=== PATIENT | female | born 1960 | race Caucasian/White ===

== ENCOUNTER → 2016-06-13 | Outpatient (CLI) | payer OTHER ==
[~2016-06-13] MED LIST: /METO25TA PO; /METO5T; /PANT40TA; /PANT40TA PO; ALBU17IN INH; ALBU83IN; ALBU83IN INH; ALBUTEROL NEBS NEB; ALDA25TA2 PO; ALDA50TA2 PO; ALPH0.156 OU; ASPI325T; ASPI81TA13 PO; ASPI81TA4 PO; ASPI81TA85 PO; ATRO1SOL13; BENA25TA4 PO; BUME1TAB; BUME1TAB13 PO; CLARITIN; CLOP75TA2 PO; COLA100C PO; COLA50CA3 PO; COMB0.2S OD; COMB0.2S OS; DEMA10TA PO; DRIS50002 PO; DULC5TAB PO; DULE200A INH; ERYT5OPO OS; EUCECRE3 TOP; FERR324T2 PO; FERR325T; FERR325T16 PO; FLAG250T; FLAG500T; FLEEENE4 PR; GUAISYP4 PO; HEPA50VL SC; HYDR-4267 PO; INCR1INH INH; INSUH10VL SC; INSULADS SC; INSULANT; INSULANT SC; IRONTAB3 PO; ISOS30BRAN; K-TA10TA; KLOR10TA; LANTUS SC; LISI2.5T; LOPR100T PO; LOSA25TA8 PO; LOSA50TA20 PO; MAGN400T5 PO; MAGN500T2; MAGN500T6 PO; MAGNESIUM OXIDE; METO100T PO; METO25TA PO; MICR10CA PO; MIRA255PW PO; MOME50SP; NEUR300C; NOVOLOG SC; OCEA0.65; PERC5TAB6 PO; PERCOCET PO; PLAV75TA2; PLAV75TA38 PO; POTA20EL PO; PRAV40TA; PREDOPD OU; PROT1TAB2 PO; RANI1TAB6 PO; SENN15UDC PO; SIMV20TA2 PO; SIMV40TA2 PO; SING10TA32 PO; SINGULAIR PO; SPIR1CAP INH; SPIR25TA2 PO; SYMB80INH INH; TESS100C PO; THERGRAN; THIA100T; TIMO5OPD OU; TIOT18INH INH; TORS10TA3 PO; TOUJ1.2I SC; TRAM50TA2; TRAM50TA2 PO; TYLE325T5 PO; TYLE650T30 PO; ULOR80TA PO; ULTR50TA PO; VENTAER IN; VICO5TAB; VITAMIN D50000 UNT; XYZA5TAB2 PO; [UNRECOGNIZED DRUG - CODE] OD; [UNRECOGNIZED DRUG - CODE] TOP; zyzal PO
--- NOTE | 2016-06-14 01:52 | REP ---
Clinical: Bronchitis. Technique: AP and lateral views. Comparison: 02/13/2016. Findings: Cardiomegaly is appreciated along with evidence for prior sternotomy, pacemaker, and valve replacement. Coarsened interstitial markings are identified. Mild pulmonary venous congestion/interstitial edema cannot be excluded as well as bronchitis. No focal consolidation. No obvious effusion or pneumothorax. Skeletal structures intact. Impression: Coarsened prominent markings. Differential diagnosis includes pulmonary venous congestion/interstitial edema and bronchitis. No focal consolidation or effusion. Signed by Marty Casillas MD 06/14/2016 01:44 A
== END ==
LOC: M SMT 14:19
PROVIDERS: ATTEND Internal Medicine Nephrology
DX: J40 Bronchitis, not specified as acute or chronic (principal); N18.4 Chronic kidney disease, stage 4 (severe)

== ENCOUNTER 2016-06-18 15:16 | Emergency (ER) | payer OTHER ==
--- NOTE | 2016-06-18 18:46 | REP ---
Clinical: Cough. Technique: AP and lateral views. Comparison: 06/13/2016. Findings: Stable cardiomegaly. Mild pulmonary venous congestion cannot be excluded. No focal consolidation, effusion, or pneumothorax. Skeletal structures intact. Impression: Cannot exclude mild pulmonary venous congestion. Signed by Marty Casillas MD 06/18/2016 06:37 P
[2016-06-18] MEDS ORDERED: BENZONATATE 100 MG CAP As Ordered ONE (19:00)
[2016-06-18] MEDS ORDERED: AZITHROMYCIN 250 MG TAB As Ordered ONE (19:00)
--- NOTE | 2016-06-18 19:13 | EDDOCDS ---
Physician Documentation [facility] Name: Janet Siddiqui Age: 56 yrs Sex: Female : 1960 Arrival Date: 06/18/2016 Time: 15:16 Bed TR7 Private MD: Jaimie Villafana M Disposition: 06/18/16 18:58 Discharged to Home/Self Care. Impression: Acute bronchitis, Cough. - Condition is Stable. - Discharge Instructions: Acute Bronchitis, Cough, Adult. - Prescriptions for Zithromax Z- Ross 250 mg Oral Tablet - take 1 tablet by ORAL route as directed for 5 days Day 1- take two tablets once. Day 2, 3, 4 , 5 take one tablet once daily.; 6 tablet. benzonatate 200 mg Oral Capsule - take 1 capsule by ORAL route 3 times per day As needed; 30 capsule. - Medication Reconciliation, Local Pharmacy Hours form. - Follow up: Jaimie Villafana; When: Call to arrange an appointment; Reason: Recheck today's complaints, Continuance of care. - Problem is new. - Symptoms are unchanged. Historical: - Allergies: MADDY INHIBITORS (Cough); Lyrica (fluid retention); PENICILLINS (Rash); Cephalexin (Nausea); Reglan (Nausea); - Home Meds: 1. albuterol neb every 4 hours PRN (or rescue inhaler) 2. aspirin 81 mg Oral tab 1 tab once daily 3. brimonidine ophthalmic 1 drop twice a day right eye only 4. Colace 100 mg oral cap 1 cap twice a day PRN 5. metoprolol tartrate 100 mg Oral tab 1 tab 2 times per day 6. Novolog 100 unit/mL Sub-Q soln before meals and bedtime sliding scale 7. Plavix 75 mg Oral tab 1 tab nightly 8. Protonix 40 mg Oral tab 1 tab 2 times per day 9. Omeprazole Unknown Oral 2 times per day 10. simvastatin 20 mg Oral tab 1 tab nightly 11. Singulair 10 mg Oral tab 1 tab once daily 12. spironolactone 25 mg Oral tab 1 tab 2 times per day 13. Timolol Maleate Opht 1 drop 2 times per day right eye only 14. torsemide 50mg oral tab 1 tab twice a day 15. Toujeo Solostar Insulin 40 unit twice a day 16. Uloric 80 mg oral tab 1 tab once daily 17. Artificial Tears ophthalmic as needed - PMHx: Acro Persistent Papular Mucinous; Acute Renal Failure; CAD; CHF; Diabetes - IDDM: controlled; GERD; Hypercholesterolemia; Hypertension; Sinusitis; - PSHx: ; femoral bypass graft; Bilateral AKA; Hernia repair; Stents, Coronary; ICD; CABG; Pacemaker Insertion; Mitral Valve Repair; Cataract Surgery- Bilateral; - Social history: Smoking status: Patient states was never smoker of tobacco. No barriers to communication noted, The patient speaks fluent Slovak, Speaks appropriately for age. - Family history: Not pertinent. - : The pt / caregiver states he / she is on anticoagulants: Plavix. Home medication list is obtained from the patient. - Exposure Risk Screening:: None identified. Vital Signs: 06/18 15:19 BP 148 / 59; Pulse 62; Resp 18 S; Temp 96.0(O); Pulse Ox 98% on R/A; Weight 88.45 kg / gr2 195 lbs (R); Height 3 ft. 9 in. (114.30 cm) (R); Pain 0/10; 17:48 BP 141 / 80; Pulse 59; Resp 20; Temp 98.5(TE); Pulse Ox 95% on R/A; Pain 0/10; ar3 19:06 BP 146 / 68; Pulse 59; Resp 18; Temp 98.3(TE); Pulse Ox 94% on R/A; Pain 0/10; ar3 15:19 Body Mass Index 67.70 (88.45 kg, 114.30 cm) gr2 MDM: 18:10 Chest, 2 View (pa\E\lat) Ordered. EDMS 18:40 Financial registration complete. ks16 18:58 Tessalon Perle 200 mg PO once ordered. mo1 18:58 azithromycin 500 mg PO once ordered. mo1 Administered Medications: 19:09 Drug: Tessalon Perle 200 mg Route: PO; [facility] 19:09 Drug: azithromycin 500 mg [azithromycin 250 mg tablet (2 tabs)] Route: PO; [facility] Signatures: Dispatcher [employer] EDMS Mackenzie Up RN RN [facility] Salima Machuca RN RN [facility] Jon Leroy PA PA mo1 Lorena Brown, Reg Reg ks16 MTDD
--- NOTE | 2016-06-18 19:13 | EDDOCDS ---
Nurse's Notes [facility] Name: Janet Siddiqui Age: 56 yrs Sex: Female : 1960 Arrival Date: 06/18/2016 Time: 15:16 Bed TR7 Private MD: Jaimie Villafana M Diagnosis: Acute bronchitis;Cough Presentation: 06/18 15:26 Presenting complaint: Patient states: SOB started 1-2 weeks. cant lay down now. dx with srm bronchitis 2 weeks ago and placed on antibiotics by hand drawer in helper. was on diuretics for CHF then MD's dried her up too muc. Presenting complaint: increased SOB with exertion. dry cough. Adult Sepsis Screening: The patient does not have new or worsening altered mentation. Patient's respiratory rate is less than 22. Systolic blood pressure is greater than 100. Patient has a qSOFA score of 0- Negative Sepsis Screen. Suicide/Homicide risk assessment- the patient denies having any suicidal and/or homicidal ideations and does not present with any other emotional, behavioral or mental health complaints. Status: Patient is not a surgical services tech or dependent. Transition of care: patient was not received from another setting of care. 15:26 Acuity: DAVEY Level 3 srm 15:26 Method Of Arrival: Wheelchair srm Triage Assessment: 15:33 General: Appears in no apparent distress, Behavior is appropriate for age, cooperative. srm Pain: Denies pain. HIV screening NA for this visit Offered previously. Respiratory: Onset: The symptoms/episode began/occurred gradually. Historical: - Allergies: MADDY INHIBITORS (Cough); Lyrica (fluid retention); PENICILLINS (Rash); Cephalexin (Nausea); Reglan (Nausea); - Home Meds: 1. albuterol neb every 4 hours PRN (or rescue inhaler) 2. aspirin 81 mg Oral tab 1 tab once daily 3. brimonidine ophthalmic 1 drop twice a day right eye only 4. Colace 100 mg oral cap 1 cap twice a day PRN 5. metoprolol tartrate 100 mg Oral tab 1 tab 2 times per day 6. Novolog 100 unit/mL Sub-Q soln before meals and bedtime sliding scale 7. Plavix 75 mg Oral tab 1 tab nightly 8. Protonix 40 mg Oral tab 1 tab 2 times per day 9. Omeprazole Unknown Oral 2 times per day 10. simvastatin 20 mg Oral tab 1 tab nightly 11. Singulair 10 mg Oral tab 1 tab once daily 12. spironolactone 25 mg Oral tab 1 tab 2 times per day 13. Timolol Maleate Opht 1 drop 2 times per day right eye only 14. torsemide 50mg oral tab 1 tab twice a day 15. Toujeo Solostar Insulin 40 unit twice a day 16. Uloric 80 mg oral tab 1 tab once daily 17. Artificial Tears ophthalmic as needed - PMHx: Acro Persistent Papular Mucinous; Acute Renal Failure; CAD; CHF; Diabetes - IDDM: controlled; GERD; Hypercholesterolemia; Hypertension; Sinusitis; - PSHx: ; femoral bypass graft; Bilateral AKA; Hernia repair; Stents, Coronary; ICD; CABG; Pacemaker Insertion; Mitral Valve Repair; Cataract Surgery- Bilateral; - Social history: Smoking status: Patient states was never smoker of tobacco. No barriers to communication noted, The patient speaks fluent Wolof, Speaks appropriately for age. - Family history: Not pertinent. - : The pt / caregiver states he / she is on anticoagulants: Plavix. Home medication list is obtained from the patient. - Exposure Risk Screening:: None identified. Screenin:13 Screening information is obtained from the patient. Fall risk: No risks identified. [facility] Assistance ADL's: requires no assistance with activities of daily living. Abuse/DV Screen: The patient / caregiver reports he/she is: not in a situation that causes fear, pain or injury. Nutritional screening: No deficits noted. Advance Directives: Currently, there is a health care proxy, John Siddiqui, . There is no active DNR order. home support is adequate. Assessment: 19:09 General: Appears in no apparent distress, comfortable, Behavior is appropriate for age, [facility] cooperative. Pain: Denies pain. Cardiovascular: Chest pain is denied. Respiratory: Airway is patent Respiratory effort is even, unlabored, Respiratory pattern is regular, symmetrical, Breath sounds are clear bilaterally. Derm: Skin is pink, warm & dry. Vital Signs: 15:19 BP 148 / 59; Pulse 62; Resp 18 S; Temp 96.0(O); Pulse Ox 98% on R/A; Weight 88.45 kg gr2 (R); Height 3 ft. 9 in. (114.30 cm) (R); Pain 0/10; 17:48 BP 141 / 80; Pulse 59; Resp 20; Temp 98.5(TE); Pulse Ox 95% on R/A; Pain 0/10; ar3 19:06 BP 146 / 68; Pulse 59; Resp 18; Temp 98.3(TE); Pulse Ox 94% on R/A; Pain 0/10; ar3 15:19 Body Mass Index 67.70 (88.45 kg, 114.30 cm) gr2 Vitals: 15:19 Log In Time: June 18, 2016 at 15:19. gr2 ED Course: 15:19 Patient visited by Cali Gallo. gr2 15:19 Jaimie Villafana is Private Physician. gr2 15:19 Patient moved to Waiting gr2 15:20 Patient visited by Cali Gallo. gr2 15:20 Patient moved to Pre RCE gr2 15:28 Triage Initiated srm 17:45 Salima Machuca,RN is Primary Nurse. ar3 17:45 Miranda Olivera,HEIDI is Primary Nurse. ar3 17:45 Patient moved to Triage 3 ar3 17:48 Patient visited by Jessie Humphreys PCA. ar3 17:54 Jon Leroy PA is PHCP. mo1 17:55 Nickolas Myles MD is Attending Physician. mo1 17:58 Patient visited by Jon Leroy PA. mo1 18:10 Patient moved to PR2 / 26 ar3 18:10 Patient moved to PD2 / 27 kr3 18:12 Patient moved to PR2 / 26 ar3 18:13 The patient / caregiver is instructed regarding the plan of care and ED course. [facility] 18:58 Jaimie Villafana is Referral Physician. mo1 19:01 Primary Nurse role handed off by Miranda Olivera,RN kr3 19:06 Patient visited by Jessie Humphreys PCA. ar3 19:07 Patient moved to TR2 cz 19:08 Patient moved to TR7 ar3 19:09 No IV's were initiated during this patient's visit. No procedures done that require [facility] assistance. Administered Medications: 19:09 Drug: Tessalon Perle 200 mg Route: PO; [facility] 19:09 Drug: azithromycin 500 mg [azithromycin 250 mg tablet (2 tabs)] Route: PO; [facility] Order Results: There are currently no results for this order. Outcome: 18:58 Discharge ordered by Provider. mo1 19:09 Discharge Assessment: Patient awake, alert and oriented x 3. No cognitive and/or [facility] functional deficits noted. Patient verbalized understanding of disposition instructions. patient administered narcotics - no. The following High Risk Discharge criteria are identified: None. Discharged to home via wheelchair, with significant other. Condition: good Condition: stable Condition: improved. Discharge instructions given to patient, Instructed on discharge instructions, follow up and referral plans. medication usage, Demonstrated understanding of instructions, medications, Pt was receptive of discharge instructions/ teaching. Prescriptions given X 2. No special radiology studies were completed. Property :Personal belongings accompany Pt. 19:12 Patient left the ED. [facility] Signatures: Mackenzie Up RN RN Tr De La Cruz RN RN cz Robie, Kathleen, RN RN kr3 Jessie Humphreys, OVER SHORT AND DAMAGE CLERK OVER SHORT AND DAMAGE CLERK ar3 Salima Machuca RN RN [facility] Cali Gallo 2 Jon Leroy PA PA mo1 KELSEY
--- NOTE | 2016-06-20 20:13 | EDDOCDS ---
Physician Documentation [facility] Name: Janet Siddiqui Age: 56 yrs Sex: Female : 1960 Arrival Date: 06/18/2016 Time: 15:16 Bed TR7 Private MD: Gera Villafana M Disposition: 06/18/16 18:58 Discharged to Home/Self Care. Impression: Acute bronchitis, Cough. - Condition is Stable. - Discharge Instructions: Acute Bronchitis, Cough, Adult. - Prescriptions for Zithromax Z- Ross 250 mg Oral Tablet - take 1 tablet by ORAL route as directed for 5 days Day 1- take two tablets once. Day 2, 3, 4 , 5 take one tablet once daily.; 6 tablet. benzonatate 200 mg Oral Capsule - take 1 capsule by ORAL route 3 times per day As needed; 30 capsule. - Medication Reconciliation, Local Pharmacy Hours form. - Follow up: Gera Villafana; When: Call to arrange an appointment; Reason: Recheck today's complaints, Continuance of care. - Problem is new. - Symptoms are unchanged. Historical: - Allergies: MADDY INHIBITORS (Cough); Lyrica (fluid retention); PENICILLINS (Rash); Cephalexin (Nausea); Reglan (Nausea); - Home Meds: 1. albuterol neb every 4 hours PRN (or rescue inhaler) 2. aspirin 81 mg Oral tab 1 tab once daily 3. brimonidine ophthalmic 1 drop twice a day right eye only 4. Colace 100 mg oral cap 1 cap twice a day PRN 5. metoprolol tartrate 100 mg Oral tab 1 tab 2 times per day 6. Novolog 100 unit/mL Sub-Q soln before meals and bedtime sliding scale 7. Plavix 75 mg Oral tab 1 tab nightly 8. Protonix 40 mg Oral tab 1 tab 2 times per day 9. Omeprazole Unknown Oral 2 times per day 10. simvastatin 20 mg Oral tab 1 tab nightly 11. Singulair 10 mg Oral tab 1 tab once daily 12. spironolactone 25 mg Oral tab 1 tab 2 times per day 13. Timolol Maleate Opht 1 drop 2 times per day right eye only 14. torsemide 50mg oral tab 1 tab twice a day 15. Toujeo Solostar Insulin 40 unit twice a day 16. Uloric 80 mg oral tab 1 tab once daily 17. Artificial Tears ophthalmic as needed - PMHx: Acro Persistent Papular Mucinous; Acute Renal Failure; CAD; CHF; Diabetes - IDDM: controlled; GERD; Hypercholesterolemia; Hypertension; Sinusitis; - PSHx: ; femoral bypass graft; Bilateral AKA; Hernia repair; Stents, Coronary; ICD; CABG; Pacemaker Insertion; Mitral Valve Repair; Cataract Surgery- Bilateral; - Social history: Smoking status: Patient states was never smoker of tobacco. No barriers to communication noted, The patient speaks fluent Yoruba, Speaks appropriately for age. - Family history: Not pertinent. - : The pt / caregiver states he / she is on anticoagulants: Plavix. Home medication list is obtained from the patient. - Exposure Risk Screening:: None identified. Vital Signs: 06/18 15:19 BP 148 / 59; Pulse 62; Resp 18 S; Temp 96.0(O); Pulse Ox 98% on R/A; Weight 88.45 kg / gr2 195 lbs (R); Height 3 ft. 9 in. (114.30 cm) (R); Pain 0/10; 17:48 BP 141 / 80; Pulse 59; Resp 20; Temp 98.5(TE); Pulse Ox 95% on R/A; Pain 0/10; ar3 19:06 BP 146 / 68; Pulse 59; Resp 18; Temp 98.3(TE); Pulse Ox 94% on R/A; Pain 0/10; ar3 15:19 Body Mass Index 67.70 (88.45 kg, 114.30 cm) gr2 MDM: 18:10 Chest, 2 View (pa\E\lat) Ordered. EDMS 18:40 Financial registration complete. ks16 18:58 Tessalon Perle 200 mg PO once ordered. mo1 18:58 azithromycin 500 mg PO once ordered. mo1 20:45 [facility] Payment Agreement was scanned into [employer] and attached to record. [email or web address] 06/19 11:02 T-Sheet-- Draft Copy was scanned into [employer] and attached to record. gb 12:58 ED course: gera villafana faxed formal report of cxr for fu mlg. ml Administered Medications: 06/18 19:09 Drug: Tessalon Perle 200 mg Route: PO; [facility] 19:09 Drug: azithromycin 500 mg [azithromycin 250 mg tablet (2 tabs)] Route: PO; [facility] Signatures: Dispatcher [employer] EDAK Pushpa Bailon MD MD Mackenzie Up RN RN [facility] Tawnya Delgado, Reg Reg gb Salima Machuca RN RN [facility] Jon Leroy PA PA or1 Lorena Brown, Reg Reg ks16 The chart was reviewed and I authenticate all verbal orders and agree with the evaluation and treatment provided.Attachments: 20:45 [facility] Payment Agreement [email or web address] 06/19 11:02 T-Sheet-- Draft Copy gb Chart Complete MTDD
--- NOTE | 2016-06-20 20:13 | EDDOCDS ---
Nurse's Notes [facility] Name: Janet Siddiqui Age: 56 yrs Sex: Female : 1960 Arrival Date: 06/18/2016 Time: 15:16 Bed TR7 Private MD: Jaimie Villafana M Diagnosis: Acute bronchitis;Cough Presentation: 06/18 15:26 Presenting complaint: Patient states: SOB started 1-2 weeks. cant lay down now. dx with srm bronchitis 2 weeks ago and placed on antibiotics by online merchandising manager. was on diuretics for CHF then MD's dried her up too muc. Presenting complaint: increased SOB with exertion. dry cough. Adult Sepsis Screening: The patient does not have new or worsening altered mentation. Patient's respiratory rate is less than 22. Systolic blood pressure is greater than 100. Patient has a qSOFA score of 0- Negative Sepsis Screen. Suicide/Homicide risk assessment- the patient denies having any suicidal and/or homicidal ideations and does not present with any other emotional, behavioral or mental health complaints. Status: Patient is not a director of physiotherapy services or dependent. Transition of care: patient was not received from another setting of care. 15:26 Acuity: DAVEY Level 3 srm 15:26 Method Of Arrival: Wheelchair srm Triage Assessment: 15:33 General: Appears in no apparent distress, Behavior is appropriate for age, cooperative. srm Pain: Denies pain. HIV screening NA for this visit Offered previously. Respiratory: Onset: The symptoms/episode began/occurred gradually. Historical: - Allergies: MADDY INHIBITORS (Cough); Lyrica (fluid retention); PENICILLINS (Rash); Cephalexin (Nausea); Reglan (Nausea); - Home Meds: 1. albuterol neb every 4 hours PRN (or rescue inhaler) 2. aspirin 81 mg Oral tab 1 tab once daily 3. brimonidine ophthalmic 1 drop twice a day right eye only 4. Colace 100 mg oral cap 1 cap twice a day PRN 5. metoprolol tartrate 100 mg Oral tab 1 tab 2 times per day 6. Novolog 100 unit/mL Sub-Q soln before meals and bedtime sliding scale 7. Plavix 75 mg Oral tab 1 tab nightly 8. Protonix 40 mg Oral tab 1 tab 2 times per day 9. Omeprazole Unknown Oral 2 times per day 10. simvastatin 20 mg Oral tab 1 tab nightly 11. Singulair 10 mg Oral tab 1 tab once daily 12. spironolactone 25 mg Oral tab 1 tab 2 times per day 13. Timolol Maleate Opht 1 drop 2 times per day right eye only 14. torsemide 50mg oral tab 1 tab twice a day 15. Toujeo Solostar Insulin 40 unit twice a day 16. Uloric 80 mg oral tab 1 tab once daily 17. Artificial Tears ophthalmic as needed - PMHx: Acro Persistent Papular Mucinous; Acute Renal Failure; CAD; CHF; Diabetes - IDDM: controlled; GERD; Hypercholesterolemia; Hypertension; Sinusitis; - PSHx: ; femoral bypass graft; Bilateral AKA; Hernia repair; Stents, Coronary; ICD; CABG; Pacemaker Insertion; Mitral Valve Repair; Cataract Surgery- Bilateral; - Social history: Smoking status: Patient states was never smoker of tobacco. No barriers to communication noted, The patient speaks fluent Italian, Speaks appropriately for age. - Family history: Not pertinent. - : The pt / caregiver states he / she is on anticoagulants: Plavix. Home medication list is obtained from the patient. - Exposure Risk Screening:: None identified. Screenin:13 Screening information is obtained from the patient. Fall risk: No risks identified. [facility] Assistance ADL's: requires no assistance with activities of daily living. Abuse/DV Screen: The patient / caregiver reports he/she is: not in a situation that causes fear, pain or injury. Nutritional screening: No deficits noted. Advance Directives: Currently, there is a health care proxy, John Siddiqui, . There is no active DNR order. home support is adequate. Assessment: 19:09 General: Appears in no apparent distress, comfortable, Behavior is appropriate for age, [facility] cooperative. Pain: Denies pain. Cardiovascular: Chest pain is denied. Respiratory: Airway is patent Respiratory effort is even, unlabored, Respiratory pattern is regular, symmetrical, Breath sounds are clear bilaterally. Derm: Skin is pink, warm & dry. Vital Signs: 15:19 BP 148 / 59; Pulse 62; Resp 18 S; Temp 96.0(O); Pulse Ox 98% on R/A; Weight 88.45 kg gr2 (R); Height 3 ft. 9 in. (114.30 cm) (R); Pain 0/10; 17:48 BP 141 / 80; Pulse 59; Resp 20; Temp 98.5(TE); Pulse Ox 95% on R/A; Pain 0/10; ar3 19:06 BP 146 / 68; Pulse 59; Resp 18; Temp 98.3(TE); Pulse Ox 94% on R/A; Pain 0/10; ar3 15:19 Body Mass Index 67.70 (88.45 kg, 114.30 cm) gr2 Vitals: 15:19 Log In Time: June 18, 2016 at 15:19. gr2 ED Course: 15:19 Patient visited by Cali Gallo. gr2 15:19 Jaimie Villafana is Private Physician. gr2 15:19 Patient moved to Waiting gr2 15:20 Patient visited by Cali Gallo. gr2 15:20 Patient moved to Pre RCE gr2 15:28 Triage Initiated srm 17:45 Salima Machuca,RN is Primary Nurse. ar3 17:45 Miranda Olivera,RN is Primary Nurse. ar3 17:45 Patient moved to Triage 3 ar3 17:48 Patient visited by Jessie Humphreys PCA. ar3 17:54 Jon Leroy PA is PHCP. mo1 17:55 Nickolas Myles MD is Attending Physician. mo1 17:58 Patient visited by Jon Leroy PA. mo1 18:10 Patient moved to PR2 / 26 ar3 18:10 Patient moved to PD2 / 27 kr3 18:12 Patient moved to PR2 / 26 ar3 18:13 The patient / caregiver is instructed regarding the plan of care and ED course. [facility] 18:58 Jaimie Villafana is Referral Physician. mo1 19:01 Primary Nurse role handed off by Miranda Olivera,RN kr3 19:06 Patient visited by Jessie Humphreys PCA. ar3 19:07 Patient moved to TR2 cz 19:08 Patient moved to TR7 ar3 19:09 No IV's were initiated during this patient's visit. No procedures done that require [facility] assistance. 19:20 Chest, 2 View (pa\E\lat) Returned. EDMS 20:45 [facility] Payment Agreement was scanned into [employer] and attached to record. [email or web address] 06/19 11:02 T-Sheet-- Draft Copy was scanned into [employer] and attached to record. gb Administered Medications: 06/18 19:09 Drug: Tessalon Perle 200 mg Route: PO; [facility] 19:09 Drug: azithromycin 500 mg [azithromycin 250 mg tablet (2 tabs)] Route: PO; [facility] Order Results: Radiology Order: Chest, 2 View (pa\E\lat) Test: Chest, 2 View (pa\E\lat) REASON FOR EXAMINATION: Cough; Clinical: Cough.; ; Technique: AP and lateral views.; ; Comparison: 06/13/2016.; ; Findings:; Stable cardiomegaly. Mild pulmonary venous congestion cannot be excluded. No; focal consolidation, effusion, or pneumothorax. Skeletal structures intact.; ; Impression:; Cannot exclude mild pulmonary venous congestion.; ; ; Signed by; Marty Casillas MD 06/18/2016 06:37 P; Outcome: 18:58 Discharge ordered by Provider. mo1 19:09 Discharge Assessment: Patient awake, alert and oriented x 3. No cognitive and/or [facility] functional deficits noted. Patient verbalized understanding of disposition instructions. patient administered narcotics - no. The following High Risk Discharge criteria are identified: None. Discharged to home via wheelchair, with significant other. Condition: good Condition: stable Condition: improved. Discharge instructions given to patient, Instructed on discharge instructions, follow up and referral plans. medication usage, Demonstrated understanding of instructions, medications, Pt was receptive of discharge instructions/ teaching. Prescriptions given X 2. No special radiology studies were completed. Property :Personal belongings accompany Pt. 19:12 Patient left the ED. [facility] Signatures: Dispatcher [employer] EDMS Mackenzie Up RN RN srm Zecher, Calvin RN Tawnya Lutz, Reg Reg gb Miranda OliveraRN RN [id number] Jessie Humphreys, QUANTOMETER OPERATOR QUANTOMETER OPERATOR Salima Foster RN RN [facility] Clai Gallo Michael, PA PA mo1 Lorena Brown, Reg Reg [email or web address] Chart Complete MTDD
--- NOTE | 2016-06-20 20:13 | EDDOCDS ---
Physician Documentation [facility] Name: Janet Siddiqui Age: 56 yrs Sex: Female : 1960 Arrival Date: 06/18/2016 Time: 15:16 Bed TR7 Private MD: Gera Villafana M Disposition: 06/18/16 18:58 Discharged to Home/Self Care. Impression: Acute bronchitis, Cough. - Condition is Stable. - Discharge Instructions: Acute Bronchitis, Cough, Adult. - Prescriptions for Zithromax Z- Ross 250 mg Oral Tablet - take 1 tablet by ORAL route as directed for 5 days Day 1- take two tablets once. Day 2, 3, 4 , 5 take one tablet once daily.; 6 tablet. benzonatate 200 mg Oral Capsule - take 1 capsule by ORAL route 3 times per day As needed; 30 capsule. - Medication Reconciliation, Local Pharmacy Hours form. - Follow up: Gera Villafana; When: Call to arrange an appointment; Reason: Recheck today's complaints, Continuance of care. - Problem is new. - Symptoms are unchanged. Historical: - Allergies: MADDY INHIBITORS (Cough); Lyrica (fluid retention); PENICILLINS (Rash); Cephalexin (Nausea); Reglan (Nausea); - Home Meds: 1. albuterol neb every 4 hours PRN (or rescue inhaler) 2. aspirin 81 mg Oral tab 1 tab once daily 3. brimonidine ophthalmic 1 drop twice a day right eye only 4. Colace 100 mg oral cap 1 cap twice a day PRN 5. metoprolol tartrate 100 mg Oral tab 1 tab 2 times per day 6. Novolog 100 unit/mL Sub-Q soln before meals and bedtime sliding scale 7. Plavix 75 mg Oral tab 1 tab nightly 8. Protonix 40 mg Oral tab 1 tab 2 times per day 9. Omeprazole Unknown Oral 2 times per day 10. simvastatin 20 mg Oral tab 1 tab nightly 11. Singulair 10 mg Oral tab 1 tab once daily 12. spironolactone 25 mg Oral tab 1 tab 2 times per day 13. Timolol Maleate Opht 1 drop 2 times per day right eye only 14. torsemide 50mg oral tab 1 tab twice a day 15. Toujeo Solostar Insulin 40 unit twice a day 16. Uloric 80 mg oral tab 1 tab once daily 17. Artificial Tears ophthalmic as needed - PMHx: Acro Persistent Papular Mucinous; Acute Renal Failure; CAD; CHF; Diabetes - IDDM: controlled; GERD; Hypercholesterolemia; Hypertension; Sinusitis; - PSHx: ; femoral bypass graft; Bilateral AKA; Hernia repair; Stents, Coronary; ICD; CABG; Pacemaker Insertion; Mitral Valve Repair; Cataract Surgery- Bilateral; - Social history: Smoking status: Patient states was never smoker of tobacco. No barriers to communication noted, The patient speaks fluent Kazakh, Speaks appropriately for age. - Family history: Not pertinent. - : The pt / caregiver states he / she is on anticoagulants: Plavix. Home medication list is obtained from the patient. - Exposure Risk Screening:: None identified. Vital Signs: 06/18 15:19 BP 148 / 59; Pulse 62; Resp 18 S; Temp 96.0(O); Pulse Ox 98% on R/A; Weight 88.45 kg / gr2 195 lbs (R); Height 3 ft. 9 in. (114.30 cm) (R); Pain 0/10; 17:48 BP 141 / 80; Pulse 59; Resp 20; Temp 98.5(TE); Pulse Ox 95% on R/A; Pain 0/10; ar3 19:06 BP 146 / 68; Pulse 59; Resp 18; Temp 98.3(TE); Pulse Ox 94% on R/A; Pain 0/10; ar3 15:19 Body Mass Index 67.70 (88.45 kg, 114.30 cm) gr2 MDM: 18:10 Chest, 2 View (pa\E\lat) Ordered. EDMS 18:40 Financial registration complete. ks16 18:58 Tessalon Perle 200 mg PO once ordered. mo1 18:58 azithromycin 500 mg PO once ordered. mo1 20:45 [facility] Payment Agreement was scanned into [employer] and attached to record. [email or web address] 06/19 11:02 T-Sheet-- Draft Copy was scanned into [employer] and attached to record. gb 12:58 ED course: gera villafana faxed formal report of cxr for fu mlg. ml Administered Medications: 06/18 19:09 Drug: Tessalon Perle 200 mg Route: PO; [facility] 19:09 Drug: azithromycin 500 mg [azithromycin 250 mg tablet (2 tabs)] Route: PO; [facility] Signatures: Dispatcher [employer] EDFL Pushpa Bailon MD MD Mackenzie Up RN RN [facility] Tawnya Delgado, Reg Reg gb Salima Machuca RN RN [facility] Jon Leroy PA PA tx1 Lorena Brown, Reg Reg ks16 The chart was reviewed and I authenticate all verbal orders and agree with the evaluation and treatment provided.Attachments: 20:45 [facility] Payment Agreement [email or web address] 06/19 11:02 T-Sheet-- Draft Copy gb Chart Complete MTDD
--- NOTE | 2016-06-27 11:04 | EDDOCDS ---
Physician Documentation [facility] Name: Janet Siddiqui Age: 56 yrs Sex: Female : 1960 Arrival Date: 06/18/2016 Time: 15:16 Bed TR7 Private MD: Gera Villafana M Disposition: 06/18/16 18:58 Discharged to Home/Self Care. Impression: Acute bronchitis, Cough. - Condition is Stable. - Discharge Instructions: Acute Bronchitis, Cough, Adult. - Prescriptions for Zithromax Z- Ross 250 mg Oral Tablet - take 1 tablet by ORAL route as directed for 5 days Day 1- take two tablets once. Day 2, 3, 4 , 5 take one tablet once daily.; 6 tablet. benzonatate 200 mg Oral Capsule - take 1 capsule by ORAL route 3 times per day As needed; 30 capsule. - Medication Reconciliation, Local Pharmacy Hours form. - Follow up: Gera Villafana; When: Call to arrange an appointment; Reason: Recheck today's complaints, Continuance of care. - Problem is new. - Symptoms are unchanged. Historical: - Allergies: MADDY INHIBITORS (Cough); Lyrica (fluid retention); PENICILLINS (Rash); Cephalexin (Nausea); Reglan (Nausea); - Home Meds: 1. albuterol neb every 4 hours PRN (or rescue inhaler) 2. aspirin 81 mg Oral tab 1 tab once daily 3. brimonidine ophthalmic 1 drop twice a day right eye only 4. Colace 100 mg oral cap 1 cap twice a day PRN 5. metoprolol tartrate 100 mg Oral tab 1 tab 2 times per day 6. Novolog 100 unit/mL Sub-Q soln before meals and bedtime sliding scale 7. Plavix 75 mg Oral tab 1 tab nightly 8. Protonix 40 mg Oral tab 1 tab 2 times per day 9. Omeprazole Unknown Oral 2 times per day 10. simvastatin 20 mg Oral tab 1 tab nightly 11. Singulair 10 mg Oral tab 1 tab once daily 12. spironolactone 25 mg Oral tab 1 tab 2 times per day 13. Timolol Maleate Opht 1 drop 2 times per day right eye only 14. torsemide 50mg oral tab 1 tab twice a day 15. Toujeo Solostar Insulin 40 unit twice a day 16. Uloric 80 mg oral tab 1 tab once daily 17. Artificial Tears ophthalmic as needed - PMHx: Acro Persistent Papular Mucinous; Acute Renal Failure; CAD; CHF; Diabetes - IDDM: controlled; GERD; Hypercholesterolemia; Hypertension; Sinusitis; - PSHx: ; femoral bypass graft; Bilateral AKA; Hernia repair; Stents, Coronary; ICD; CABG; Pacemaker Insertion; Mitral Valve Repair; Cataract Surgery- Bilateral; - Social history: Smoking status: Patient states was never smoker of tobacco. No barriers to communication noted, The patient speaks fluent Indonesian, Speaks appropriately for age. - Family history: Not pertinent. - : The pt / caregiver states he / she is on anticoagulants: Plavix. Home medication list is obtained from the patient. - Exposure Risk Screening:: None identified. Vital Signs: 06/18 15:19 BP 148 / 59; Pulse 62; Resp 18 S; Temp 96.0(O); Pulse Ox 98% on R/A; Weight 88.45 kg / gr2 195 lbs (R); Height 3 ft. 9 in. (114.30 cm) (R); Pain 0/10; 17:48 BP 141 / 80; Pulse 59; Resp 20; Temp 98.5(TE); Pulse Ox 95% on R/A; Pain 0/10; ar3 19:06 BP 146 / 68; Pulse 59; Resp 18; Temp 98.3(TE); Pulse Ox 94% on R/A; Pain 0/10; ar3 15:19 Body Mass Index 67.70 (88.45 kg, 114.30 cm) gr2 MDM: 18:10 Chest, 2 View (pa\E\lat) Ordered. EDMS 18:40 Financial registration complete. ks16 18:58 Tessalon Perle 200 mg PO once ordered. mo1 18:58 azithromycin 500 mg PO once ordered. mo1 20:45 [facility] Payment Agreement was scanned into [employer] and attached to record. [email or web address] 06/19 11:02 T-Sheet-- Draft Copy was scanned into [employer] and attached to record. gb 12:58 ED course: gera villafana faxed formal report of cxr for fu mlg. ml Administered Medications: 06/18 19:09 Drug: Tessalon Perle 200 mg Route: PO; [facility] 19:09 Drug: azithromycin 500 mg [azithromycin 250 mg tablet (2 tabs)] Route: PO; [facility] Signatures: Dispatcher [employer] EDNY Pushpa Bailon MD MD Mackenzie Up RN RN [facility] Tawnya Delgado, Reg Reg gb Salima Machuca RN RN [facility] Jon Leroy PA PA ks1 Lorena Brown, Reg Reg ks16 The chart was reviewed and I authenticate all verbal orders and agree with the evaluation and treatment provided.Attachments: 20:45 [facility] Payment Agreement [email or web address] 06/19 11:02 T-Sheet-- Draft Copy gb MTDD
--- NOTE | 2016-06-27 11:04 | EDDOCDS ---
Nurse's Notes [facility] Name: Janet Siddiqui Age: 56 yrs Sex: Female : 1960 Arrival Date: 06/18/2016 Time: 15:16 Bed TR7 Private MD: Jaimie Villafana M Diagnosis: Acute bronchitis;Cough Presentation: 06/18 15:26 Presenting complaint: Patient states: SOB started 1-2 weeks. cant lay down now. dx with srm bronchitis 2 weeks ago and placed on antibiotics by desk sergeant. was on diuretics for CHF then MD's dried her up too muc. Presenting complaint: increased SOB with exertion. dry cough. Adult Sepsis Screening: The patient does not have new or worsening altered mentation. Patient's respiratory rate is less than 22. Systolic blood pressure is greater than 100. Patient has a qSOFA score of 0- Negative Sepsis Screen. Suicide/Homicide risk assessment- the patient denies having any suicidal and/or homicidal ideations and does not present with any other emotional, behavioral or mental health complaints. Status: Patient is not a ancillary services manager or dependent. Transition of care: patient was not received from another setting of care. 15:26 Acuity: DAVEY Level 3 srm 15:26 Method Of Arrival: Wheelchair srm Triage Assessment: 15:33 General: Appears in no apparent distress, Behavior is appropriate for age, cooperative. srm Pain: Denies pain. HIV screening NA for this visit Offered previously. Respiratory: Onset: The symptoms/episode began/occurred gradually. Historical: - Allergies: MADDY INHIBITORS (Cough); Lyrica (fluid retention); PENICILLINS (Rash); Cephalexin (Nausea); Reglan (Nausea); - Home Meds: 1. albuterol neb every 4 hours PRN (or rescue inhaler) 2. aspirin 81 mg Oral tab 1 tab once daily 3. brimonidine ophthalmic 1 drop twice a day right eye only 4. Colace 100 mg oral cap 1 cap twice a day PRN 5. metoprolol tartrate 100 mg Oral tab 1 tab 2 times per day 6. Novolog 100 unit/mL Sub-Q soln before meals and bedtime sliding scale 7. Plavix 75 mg Oral tab 1 tab nightly 8. Protonix 40 mg Oral tab 1 tab 2 times per day 9. Omeprazole Unknown Oral 2 times per day 10. simvastatin 20 mg Oral tab 1 tab nightly 11. Singulair 10 mg Oral tab 1 tab once daily 12. spironolactone 25 mg Oral tab 1 tab 2 times per day 13. Timolol Maleate Opht 1 drop 2 times per day right eye only 14. torsemide 50mg oral tab 1 tab twice a day 15. Toujeo Solostar Insulin 40 unit twice a day 16. Uloric 80 mg oral tab 1 tab once daily 17. Artificial Tears ophthalmic as needed - PMHx: Acro Persistent Papular Mucinous; Acute Renal Failure; CAD; CHF; Diabetes - IDDM: controlled; GERD; Hypercholesterolemia; Hypertension; Sinusitis; - PSHx: ; femoral bypass graft; Bilateral AKA; Hernia repair; Stents, Coronary; ICD; CABG; Pacemaker Insertion; Mitral Valve Repair; Cataract Surgery- Bilateral; - Social history: Smoking status: Patient states was never smoker of tobacco. No barriers to communication noted, The patient speaks fluent Yakut, Speaks appropriately for age. - Family history: Not pertinent. - : The pt / caregiver states he / she is on anticoagulants: Plavix. Home medication list is obtained from the patient. - Exposure Risk Screening:: None identified. Screenin:13 Screening information is obtained from the patient. Fall risk: No risks identified. [facility] Assistance ADL's: requires no assistance with activities of daily living. Abuse/DV Screen: The patient / caregiver reports he/she is: not in a situation that causes fear, pain or injury. Nutritional screening: No deficits noted. Advance Directives: Currently, there is a health care proxy, John Siddiqui, . There is no active DNR order. home support is adequate. Assessment: 19:09 General: Appears in no apparent distress, comfortable, Behavior is appropriate for age, [facility] cooperative. Pain: Denies pain. Cardiovascular: Chest pain is denied. Respiratory: Airway is patent Respiratory effort is even, unlabored, Respiratory pattern is regular, symmetrical, Breath sounds are clear bilaterally. Derm: Skin is pink, warm & dry. Vital Signs: 15:19 BP 148 / 59; Pulse 62; Resp 18 S; Temp 96.0(O); Pulse Ox 98% on R/A; Weight 88.45 kg gr2 (R); Height 3 ft. 9 in. (114.30 cm) (R); Pain 0/10; 17:48 BP 141 / 80; Pulse 59; Resp 20; Temp 98.5(TE); Pulse Ox 95% on R/A; Pain 0/10; ar3 19:06 BP 146 / 68; Pulse 59; Resp 18; Temp 98.3(TE); Pulse Ox 94% on R/A; Pain 0/10; ar3 15:19 Body Mass Index 67.70 (88.45 kg, 114.30 cm) gr2 Vitals: 15:19 Log In Time: June 18, 2016 at 15:19. gr2 ED Course: 15:19 Patient visited by Cali Gallo. gr2 15:19 Jaimie Villafana is Private Physician. gr2 15:19 Patient moved to Waiting gr2 15:20 Patient visited by Cali Gallo. gr2 15:20 Patient moved to Pre RCE gr2 15:28 Triage Initiated srm 17:45 Salima Machuca,RN is Primary Nurse. ar3 17:45 Miranda Olivera,RN is Primary Nurse. ar3 17:45 Patient moved to Triage 3 ar3 17:48 Patient visited by Jessie Humphreys PCA. ar3 17:54 Jon Leroy PA is PHCP. mo1 17:55 Nickolas Myles MD is Attending Physician. mo1 17:58 Patient visited by Jon Leroy PA. mo1 18:10 Patient moved to PR2 / 26 ar3 18:10 Patient moved to PD2 / 27 kr3 18:12 Patient moved to PR2 / 26 ar3 18:13 The patient / caregiver is instructed regarding the plan of care and ED course. [facility] 18:58 Jaimie Villafana is Referral Physician. mo1 19:01 Primary Nurse role handed off by Miranda Olivera,RN kr3 19:06 Patient visited by Jessie Humphreys PCA. ar3 19:07 Patient moved to TR2 cz 19:08 Patient moved to TR7 ar3 19:09 No IV's were initiated during this patient's visit. No procedures done that require [facility] assistance. 19:20 Chest, 2 View (pa\E\lat) Returned. EDMS 20:45 [facility] Payment Agreement was scanned into [employer] and attached to record. [email or web address] 06/19 11:02 T-Sheet-- Draft Copy was scanned into [employer] and attached to record. gb Administered Medications: 06/18 19:09 Drug: Tessalon Perle 200 mg Route: PO; [facility] 19:09 Drug: azithromycin 500 mg [azithromycin 250 mg tablet (2 tabs)] Route: PO; [facility] Order Results: Radiology Order: Chest, 2 View (pa\E\lat) Test: Chest, 2 View (pa\E\lat) REASON FOR EXAMINATION: Cough; Clinical: Cough.; ; Technique: AP and lateral views.; ; Comparison: 06/13/2016.; ; Findings:; Stable cardiomegaly. Mild pulmonary venous congestion cannot be excluded. No; focal consolidation, effusion, or pneumothorax. Skeletal structures intact.; ; Impression:; Cannot exclude mild pulmonary venous congestion.; ; ; Signed by; Marty Casillas MD 06/18/2016 06:37 P; Outcome: 18:58 Discharge ordered by Provider. mo1 19:09 Discharge Assessment: Patient awake, alert and oriented x 3. No cognitive and/or [facility] functional deficits noted. Patient verbalized understanding of disposition instructions. patient administered narcotics - no. The following High Risk Discharge criteria are identified: None. Discharged to home via wheelchair, with significant other. Condition: good Condition: stable Condition: improved. Discharge instructions given to patient, Instructed on discharge instructions, follow up and referral plans. medication usage, Demonstrated understanding of instructions, medications, Pt was receptive of discharge instructions/ teaching. Prescriptions given X 2. No special radiology studies were completed. Property :Personal belongings accompany Pt. 19:12 Patient left the ED. [facility] Addendum: 06/27/2016 11:01 Narrative: called back after receiving certified letter - given results of CXR kcs from last visit and states since here they have followed up with [employer] and they are currently working on the issue. Verified patient's home number that was listed and is correct. Signatures: Dispatcher [employer] Kirstie Rebollar RN RN kcs Michelson, Staci, RN RN srm Zecher, Calvin, RN RN cz Barnhardt, Gloria, Reg Reg Miranda Douglas RN RN kr3 Jessie Humphreys, LINE TENDER FLAKEBOARD LINE TENDER FLAKEBOARD ar3 Salima Machuca RN RN [facility] Cali Gallo gr2 Jon Leroy PA PA mo1 Lorena Brown, Reg Reg ks16 MTDD
--- NOTE | 2016-06-27 11:04 | EDDOCDS ---
Physician Documentation [facility] Name: Janet Siddiqui Age: 56 yrs Sex: Female : 1960 Arrival Date: 06/18/2016 Time: 15:16 Bed TR7 Private MD: Gera Villafana M Disposition: 06/18/16 18:58 Discharged to Home/Self Care. Impression: Acute bronchitis, Cough. - Condition is Stable. - Discharge Instructions: Acute Bronchitis, Cough, Adult. - Prescriptions for Zithromax Z- Ross 250 mg Oral Tablet - take 1 tablet by ORAL route as directed for 5 days Day 1- take two tablets once. Day 2, 3, 4 , 5 take one tablet once daily.; 6 tablet. benzonatate 200 mg Oral Capsule - take 1 capsule by ORAL route 3 times per day As needed; 30 capsule. - Medication Reconciliation, Local Pharmacy Hours form. - Follow up: Gera Villafana; When: Call to arrange an appointment; Reason: Recheck today's complaints, Continuance of care. - Problem is new. - Symptoms are unchanged. Historical: - Allergies: MADDY INHIBITORS (Cough); Lyrica (fluid retention); PENICILLINS (Rash); Cephalexin (Nausea); Reglan (Nausea); - Home Meds: 1. albuterol neb every 4 hours PRN (or rescue inhaler) 2. aspirin 81 mg Oral tab 1 tab once daily 3. brimonidine ophthalmic 1 drop twice a day right eye only 4. Colace 100 mg oral cap 1 cap twice a day PRN 5. metoprolol tartrate 100 mg Oral tab 1 tab 2 times per day 6. Novolog 100 unit/mL Sub-Q soln before meals and bedtime sliding scale 7. Plavix 75 mg Oral tab 1 tab nightly 8. Protonix 40 mg Oral tab 1 tab 2 times per day 9. Omeprazole Unknown Oral 2 times per day 10. simvastatin 20 mg Oral tab 1 tab nightly 11. Singulair 10 mg Oral tab 1 tab once daily 12. spironolactone 25 mg Oral tab 1 tab 2 times per day 13. Timolol Maleate Opht 1 drop 2 times per day right eye only 14. torsemide 50mg oral tab 1 tab twice a day 15. Toujeo Solostar Insulin 40 unit twice a day 16. Uloric 80 mg oral tab 1 tab once daily 17. Artificial Tears ophthalmic as needed - PMHx: Acro Persistent Papular Mucinous; Acute Renal Failure; CAD; CHF; Diabetes - IDDM: controlled; GERD; Hypercholesterolemia; Hypertension; Sinusitis; - PSHx: ; femoral bypass graft; Bilateral AKA; Hernia repair; Stents, Coronary; ICD; CABG; Pacemaker Insertion; Mitral Valve Repair; Cataract Surgery- Bilateral; - Social history: Smoking status: Patient states was never smoker of tobacco. No barriers to communication noted, The patient speaks fluent Belarusian, Speaks appropriately for age. - Family history: Not pertinent. - : The pt / caregiver states he / she is on anticoagulants: Plavix. Home medication list is obtained from the patient. - Exposure Risk Screening:: None identified. Vital Signs: 06/18 15:19 BP 148 / 59; Pulse 62; Resp 18 S; Temp 96.0(O); Pulse Ox 98% on R/A; Weight 88.45 kg / gr2 195 lbs (R); Height 3 ft. 9 in. (114.30 cm) (R); Pain 0/10; 17:48 BP 141 / 80; Pulse 59; Resp 20; Temp 98.5(TE); Pulse Ox 95% on R/A; Pain 0/10; ar3 19:06 BP 146 / 68; Pulse 59; Resp 18; Temp 98.3(TE); Pulse Ox 94% on R/A; Pain 0/10; ar3 15:19 Body Mass Index 67.70 (88.45 kg, 114.30 cm) gr2 MDM: 18:10 Chest, 2 View (pa\E\lat) Ordered. EDMS 18:40 Financial registration complete. ks16 18:58 Tessalon Perle 200 mg PO once ordered. mo1 18:58 azithromycin 500 mg PO once ordered. mo1 20:45 [facility] Payment Agreement was scanned into [employer] and attached to record. [email or web address] 06/19 11:02 T-Sheet-- Draft Copy was scanned into [employer] and attached to record. gb 12:58 ED course: gera villafana faxed formal report of cxr for fu mlg. ml Administered Medications: 06/18 19:09 Drug: Tessalon Perle 200 mg Route: PO; [facility] 19:09 Drug: azithromycin 500 mg [azithromycin 250 mg tablet (2 tabs)] Route: PO; [facility] Signatures: Dispatcher [employer] EDPA Pushpa Bailon MD MD Mackenzie Up RN RN [facility] Tawnya Delgado, Reg Reg gb Salima Machuca RN RN [facility] Jon Leroy PA PA sc1 Lorena Brown, Reg Reg ks16 The chart was reviewed and I authenticate all verbal orders and agree with the evaluation and treatment provided.Attachments: 20:45 [facility] Payment Agreement [email or web address] 06/19 11:02 T-Sheet-- Draft Copy gb MTDD
--- NOTE | 2016-06-27 11:05 | EDDOCDS ---
Nurse's Notes [facility] Name: Janet Siddiqui Age: 56 yrs Sex: Female : 1960 Arrival Date: 06/18/2016 Time: 15:16 Bed TR7 Private MD: Jaimie Villafana M Diagnosis: Acute bronchitis;Cough Presentation: 06/18 15:26 Presenting complaint: Patient states: SOB started 1-2 weeks. cant lay down now. 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 was on diuretics for CHF then MD's dried her up too muc. Presenting complaint: increased SOB with exertion. dry cough. Adult Sepsis Screening: The patient does not have new or worsening altered mentation. Patient's respiratory rate is less than 22. Systolic blood pressure is greater than 100. Patient has a qSOFA score of 0- Negative Sepsis Screen. Suicide/Homicide risk assessment- the patient denies having any suicidal and/or homicidal ideations and does not present with any other emotional, behavioral or mental health complaints. Status: Patient is not a social services aide or dependent. Transition of care: patient was not received from another setting of care. 15:26 Acuity: DAVEY Level 3 srm 15:26 Method Of Arrival: Wheelchair srm Triage Assessment: 15:33 General: Appears in no apparent distress, Behavior is appropriate for age, cooperative. srm Pain: Denies pain. HIV screening NA for this visit Offered previously. Respiratory: Onset: The symptoms/episode began/occurred gradually. Historical: - Allergies: MADDY INHIBITORS (Cough); Lyrica (fluid retention); PENICILLINS (Rash); Cephalexin (Nausea); Reglan (Nausea); - Home Meds: 1. albuterol neb every 4 hours PRN (or rescue inhaler) 2. aspirin 81 mg Oral tab 1 tab once daily 3. brimonidine ophthalmic 1 drop twice a day right eye only 4. Colace 100 mg oral cap 1 cap twice a day PRN 5. metoprolol tartrate 100 mg Oral tab 1 tab 2 times per day 6. Novolog 100 unit/mL Sub-Q soln before meals and bedtime sliding scale 7. Plavix 75 mg Oral tab 1 tab nightly 8. Protonix 40 mg Oral tab 1 tab 2 times per day 9. Omeprazole Unknown Oral 2 times per day 10. simvastatin 20 mg Oral tab 1 tab nightly 11. Singulair 10 mg Oral tab 1 tab once daily 12. spironolactone 25 mg Oral tab 1 tab 2 times per day 13. Timolol Maleate Opht 1 drop 2 times per day right eye only 14. torsemide 50mg oral tab 1 tab twice a day 15. Toujeo Solostar Insulin 40 unit twice a day 16. Uloric 80 mg oral tab 1 tab once daily 17. Artificial Tears ophthalmic as needed - PMHx: Acro Persistent Papular Mucinous; Acute Renal Failure; CAD; CHF; Diabetes - IDDM: controlled; GERD; Hypercholesterolemia; Hypertension; Sinusitis; - PSHx: ; femoral bypass graft; Bilateral AKA; Hernia repair; Stents, Coronary; ICD; CABG; Pacemaker Insertion; Mitral Valve Repair; Cataract Surgery- Bilateral; - Social history: Smoking status: Patient states was never smoker of tobacco. No barriers to communication noted, The patient speaks fluent Uzbek, Speaks appropriately for age. - Family history: Not pertinent. - : The pt / caregiver states he / she is on anticoagulants: Plavix. Home medication list is obtained from the patient. - Exposure Risk Screening:: None identified. Screenin:13 Screening information is obtained from the patient. Fall risk: No risks identified. [facility] Assistance ADL's: requires no assistance with activities of daily living. Abuse/DV Screen: The patient / caregiver reports he/she is: not in a situation that causes fear, pain or injury. Nutritional screening: No deficits noted. Advance Directives: Currently, there is a health care proxy, John Siddiqui, . There is no active DNR order. home support is adequate. Assessment: 19:09 General: Appears in no apparent distress, comfortable, Behavior is appropriate for age, [facility] cooperative. Pain: Denies pain. Cardiovascular: Chest pain is denied. Respiratory: Airway is patent Respiratory effort is even, unlabored, Respiratory pattern is regular, symmetrical, Breath sounds are clear bilaterally. Derm: Skin is pink, warm & dry. Vital Signs: 15:19 BP 148 / 59; Pulse 62; Resp 18 S; Temp 96.0(O); Pulse Ox 98% on R/A; Weight 88.45 kg gr2 (R); Height 3 ft. 9 in. (114.30 cm) (R); Pain 0/10; 17:48 BP 141 / 80; Pulse 59; Resp 20; Temp 98.5(TE); Pulse Ox 95% on R/A; Pain 0/10; ar3 19:06 BP 146 / 68; Pulse 59; Resp 18; Temp 98.3(TE); Pulse Ox 94% on R/A; Pain 0/10; ar3 15:19 Body Mass Index 67.70 (88.45 kg, 114.30 cm) gr2 Vitals: 15:19 Log In Time: June 18, 2016 at 15:19. gr2 ED Course: 15:19 Patient visited by Cali Gallo. gr2 15:19 Jaimie Villafana is Private Physician. gr2 15:19 Patient moved to Waiting gr2 15:20 Patient visited by Cali Gallo. gr2 15:20 Patient moved to Pre RCE gr2 15:28 Triage Initiated srm 17:45 Salima Machuca,RN is Primary Nurse. ar3 17:45 Miranda Olivera,RN is Primary Nurse. ar3 17:45 Patient moved to Triage 3 ar3 17:48 Patient visited by Jessie Humphreys PCA. ar3 17:54 Jon Leroy PA is PHCP. mo1 17:55 Nickolas Myles MD is Attending Physician. mo1 17:58 Patient visited by Jon Leroy PA. mo1 18:10 Patient moved to PR2 / 26 ar3 18:10 Patient moved to PD2 / 27 kr3 18:12 Patient moved to PR2 / 26 ar3 18:13 The patient / caregiver is instructed regarding the plan of care and ED course. [facility] 18:58 Jaimie Villafana is Referral Physician. mo1 19:01 Primary Nurse role handed off by Miranda Olivera,RN kr3 19:06 Patient visited by Jessie Humphreys PCA. ar3 19:07 Patient moved to TR2 cz 19:08 Patient moved to TR7 ar3 19:09 No IV's were initiated during this patient's visit. No procedures done that require [facility] assistance. 19:20 Chest, 2 View (pa\E\lat) Returned. EDMS 20:45 [facility] [place] was scanned into [employer] and attached to record. [email or web address] 06/19 11:02 T-Sheet-- Draft Copy was scanned into [employer] and attached to record. gb Administered Medications: 06/18 19:09 Drug: Tessalon Perle 200 mg Route: PO; [facility] 19:09 Drug: azithromycin 500 mg [azithromycin 250 mg tablet (2 tabs)] Route: PO; [facility] Order Results: Radiology Order: Chest, 2 View (pa\E\lat) Test: Chest, 2 View (pa\E\lat) REASON FOR EXAMINATION: Cough; Clinical: Cough.; ; Technique: AP and lateral views.; ; Comparison: 06/13/2016.; ; Findings:; Stable cardiomegaly. Mild pulmonary venous congestion cannot be excluded. No; focal consolidation, effusion, or pneumothorax. Skeletal structures intact.; ; Impression:; Cannot exclude mild pulmonary venous congestion.; ; ; Signed by; Marty Casillas MD 06/18/2016 06:37 P; Outcome: 18:58 Discharge ordered by Provider. mo1 19:09 Discharge Assessment: Patient awake, alert and oriented x 3. No cognitive and/or [facility] functional deficits noted. Patient verbalized understanding of disposition instructions. patient administered narcotics - no. The following High Risk Discharge criteria are identified: None. Discharged to home via wheelchair, with significant other. Condition: good Condition: stable Condition: improved. Discharge instructions given to patient, Instructed on discharge instructions, follow up and referral plans. medication usage, Demonstrated understanding of instructions, medications, Pt was receptive of discharge instructions/ teaching. Prescriptions given X 2. No special radiology studies were completed. Property :Personal belongings accompany Pt. 19:12 Patient left the ED. [facility] Addendum: 06/27/2016 11:01 Narrative: called back after receiving certified letter - given results of CXR kcs from last visit and states since here they have followed up with [employer] and [employer] and they are currently working on the issue. Verified patient's home number that was listed and is correct. Signatures: Dispatcher [employer] Kirstie Rebollar RN RN kcs Michelson, Staci, RN RN srm Zecher, Calvin, RN RN cz Barnhardt, Gloria, Reg Reg Miranda Douglas RN RN kr3 Jessie Humphreys, DIRECTOR WRITING DIRECTOR WRITING ar3 Salima Machuca RN RN [facility] Cali Gallo gr2 Jon Leroy PA PA mo1 Lorena Brown, Reg Reg [email or web address] Chart Complete MTDD
--- NOTE | 2016-06-27 11:05 | EDDOCDS ---
Physician Documentation [facility] Name: Janet Siddiqui Age: 56 yrs Sex: Female : 1960 Arrival Date: 06/18/2016 Time: 15:16 Bed TR7 Private MD: Gera Villafana M Disposition: 06/18/16 18:58 Discharged to Home/Self Care. Impression: Acute bronchitis, Cough. - Condition is Stable. - Discharge Instructions: Acute Bronchitis, Cough, Adult. - Prescriptions for Zithromax Z- Ross 250 mg Oral Tablet - take 1 tablet by ORAL route as directed for 5 days Day 1- take two tablets once. Day 2, 3, 4 , 5 take one tablet once daily.; 6 tablet. benzonatate 200 mg Oral Capsule - take 1 capsule by ORAL route 3 times per day As needed; 30 capsule. - Medication Reconciliation, Local Pharmacy Hours form. - Follow up: Gera Villafana; When: Call to arrange an appointment; Reason: Recheck today's complaints, Continuance of care. - Problem is new. - Symptoms are unchanged. Historical: - Allergies: MADDY INHIBITORS (Cough); Lyrica (fluid retention); PENICILLINS (Rash); Cephalexin (Nausea); Reglan (Nausea); - Home Meds: 1. albuterol neb every 4 hours PRN (or rescue inhaler) 2. aspirin 81 mg Oral tab 1 tab once daily 3. brimonidine ophthalmic 1 drop twice a day right eye only 4. Colace 100 mg oral cap 1 cap twice a day PRN 5. metoprolol tartrate 100 mg Oral tab 1 tab 2 times per day 6. Novolog 100 unit/mL Sub-Q soln before meals and bedtime sliding scale 7. Plavix 75 mg Oral tab 1 tab nightly 8. Protonix 40 mg Oral tab 1 tab 2 times per day 9. Omeprazole Unknown Oral 2 times per day 10. simvastatin 20 mg Oral tab 1 tab nightly 11. Singulair 10 mg Oral tab 1 tab once daily 12. spironolactone 25 mg Oral tab 1 tab 2 times per day 13. Timolol Maleate Opht 1 drop 2 times per day right eye only 14. torsemide 50mg oral tab 1 tab twice a day 15. Toujeo Solostar Insulin 40 unit twice a day 16. Uloric 80 mg oral tab 1 tab once daily 17. Artificial Tears ophthalmic as needed - PMHx: Acro Persistent Papular Mucinous; Acute Renal Failure; CAD; CHF; Diabetes - IDDM: controlled; GERD; Hypercholesterolemia; Hypertension; Sinusitis; - PSHx: ; femoral bypass graft; Bilateral AKA; Hernia repair; Stents, Coronary; ICD; CABG; Pacemaker Insertion; Mitral Valve Repair; Cataract Surgery- Bilateral; - Social history: Smoking status: Patient states was never smoker of tobacco. No barriers to communication noted, The patient speaks fluent Maori, Speaks appropriately for age. - Family history: Not pertinent. - : The pt / caregiver states he / she is on anticoagulants: Plavix. Home medication list is obtained from the patient. - Exposure Risk Screening:: None identified. Vital Signs: 06/18 15:19 BP 148 / 59; Pulse 62; Resp 18 S; Temp 96.0(O); Pulse Ox 98% on R/A; Weight 88.45 kg / gr2 195 lbs (R); Height 3 ft. 9 in. (114.30 cm) (R); Pain 0/10; 17:48 BP 141 / 80; Pulse 59; Resp 20; Temp 98.5(TE); Pulse Ox 95% on R/A; Pain 0/10; ar3 19:06 BP 146 / 68; Pulse 59; Resp 18; Temp 98.3(TE); Pulse Ox 94% on R/A; Pain 0/10; ar3 15:19 Body Mass Index 67.70 (88.45 kg, 114.30 cm) gr2 MDM: 18:10 Chest, 2 View (pa\E\lat) Ordered. EDMS 18:40 Financial registration complete. [email or web address] 18:58 Tessalon Perle 200 mg PO once ordered. mo1 18:58 azithromycin 500 mg PO once ordered. mo1 20:45 [facility] Payment Agreement was scanned into [employer] and attached to record. [email or web address] 06/19 11:02 T-Sheet-- Draft Copy was scanned into [employer] and attached to record. gb 12:58 ED course: gera villafana faxed formal report of cxr for fu mlg. ml Administered Medications: 06/18 19:09 Drug: Tessalon Perle 200 mg Route: PO; [facility] 19:09 Drug: azithromycin 500 mg [azithromycin 250 mg tablet (2 tabs)] Route: PO; [facility] Signatures: Dispatcher [employer] EDUT Pushpa Bailon MD MD Mackenzie Up RN RN [facility] Tawnya Delgado, Reg Reg gb Salima Machuca RN RN [facility] Jon Leroy PA PA nv1 Lorena Brown, Reg Reg [email or web address] The chart was reviewed and I authenticate all verbal orders and agree with the evaluation and treatment provided.Attachments: 20:45 [facility] Payment Agreement [email or web address] 06/19 11:02 T-Sheet-- Draft Copy gb Chart Complete MTDD
--- NOTE | 2016-06-27 11:05 | EDDOCDS ---
Physician Documentation [facility] Name: Janet Siddiqui Age: 56 yrs Sex: Female : 1960 Arrival Date: 06/18/2016 Time: 15:16 Bed TR7 Private MD: Gera Villafana M Disposition: 06/18/16 18:58 Discharged to Home/Self Care. Impression: Acute bronchitis, Cough. - Condition is Stable. - Discharge Instructions: Acute Bronchitis, Cough, Adult. - Prescriptions for Zithromax Z- Ross 250 mg Oral Tablet - take 1 tablet by ORAL route as directed for 5 days Day 1- take two tablets once. Day 2, 3, 4 , 5 take one tablet once daily.; 6 tablet. benzonatate 200 mg Oral Capsule - take 1 capsule by ORAL route 3 times per day As needed; 30 capsule. - Medication Reconciliation, Local Pharmacy Hours form. - Follow up: Gera Villafana; When: Call to arrange an appointment; Reason: Recheck today's complaints, Continuance of care. - Problem is new. - Symptoms are unchanged. Historical: - Allergies: MADDY INHIBITORS (Cough); Lyrica (fluid retention); PENICILLINS (Rash); Cephalexin (Nausea); Reglan (Nausea); - Home Meds: 1. albuterol neb every 4 hours PRN (or rescue inhaler) 2. aspirin 81 mg Oral tab 1 tab once daily 3. brimonidine ophthalmic 1 drop twice a day right eye only 4. Colace 100 mg oral cap 1 cap twice a day PRN 5. metoprolol tartrate 100 mg Oral tab 1 tab 2 times per day 6. Novolog 100 unit/mL Sub-Q soln before meals and bedtime sliding scale 7. Plavix 75 mg Oral tab 1 tab nightly 8. Protonix 40 mg Oral tab 1 tab 2 times per day 9. Omeprazole Unknown Oral 2 times per day 10. simvastatin 20 mg Oral tab 1 tab nightly 11. Singulair 10 mg Oral tab 1 tab once daily 12. spironolactone 25 mg Oral tab 1 tab 2 times per day 13. Timolol Maleate Opht 1 drop 2 times per day right eye only 14. torsemide 50mg oral tab 1 tab twice a day 15. Toujeo Solostar Insulin 40 unit twice a day 16. Uloric 80 mg oral tab 1 tab once daily 17. Artificial Tears ophthalmic as needed - PMHx: Acro Persistent Papular Mucinous; Acute Renal Failure; CAD; CHF; Diabetes - IDDM: controlled; GERD; Hypercholesterolemia; Hypertension; Sinusitis; - PSHx: ; femoral bypass graft; Bilateral AKA; Hernia repair; Stents, Coronary; ICD; CABG; Pacemaker Insertion; Mitral Valve Repair; Cataract Surgery- Bilateral; - Social history: Smoking status: Patient states was never smoker of tobacco. No barriers to communication noted, The patient speaks fluent Maori, Speaks appropriately for age. - Family history: Not pertinent. - : The pt / caregiver states he / she is on anticoagulants: Plavix. Home medication list is obtained from the patient. - Exposure Risk Screening:: None identified. Vital Signs: 06/18 15:19 BP 148 / 59; Pulse 62; Resp 18 S; Temp 96.0(O); Pulse Ox 98% on R/A; Weight 88.45 kg / gr2 195 lbs (R); Height 3 ft. 9 in. (114.30 cm) (R); Pain 0/10; 17:48 BP 141 / 80; Pulse 59; Resp 20; Temp 98.5(TE); Pulse Ox 95% on R/A; Pain 0/10; ar3 19:06 BP 146 / 68; Pulse 59; Resp 18; Temp 98.3(TE); Pulse Ox 94% on R/A; Pain 0/10; ar3 15:19 Body Mass Index 67.70 (88.45 kg, 114.30 cm) gr2 MDM: 18:10 Chest, 2 View (pa\E\lat) Ordered. EDMS 18:40 Financial registration complete. [email or web address] 18:58 Tessalon Perle 200 mg PO once ordered. mo1 18:58 azithromycin 500 mg PO once ordered. mo1 20:45 [facility] Payment Agreement was scanned into [employer] and attached to record. [email or web address] 06/19 11:02 T-Sheet-- Draft Copy was scanned into [employer] and attached to record. gb 12:58 ED course: gera villafana faxed formal report of cxr for fu mlg. ml Administered Medications: 06/18 19:09 Drug: Tessalon Perle 200 mg Route: PO; [facility] 19:09 Drug: azithromycin 500 mg [azithromycin 250 mg tablet (2 tabs)] Route: PO; [facility] Signatures: Dispatcher [employer] EDVA Pushpa Bailon MD MD Mackenzie Up RN RN [facility] Tawnya Delgado, Reg Reg gb Salima Machuca RN RN [facility] Jon Leroy PA PA in1 Lorena Brown, Reg Reg ks16 The chart was reviewed and I authenticate all verbal orders and agree with the evaluation and treatment provided.Attachments: 20:45 [facility] Payment Agreement [email or web address] 06/19 11:02 T-Sheet-- Draft Copy gb Chart Complete MTDD
--- NOTE | 2016-06-27 11:11 | EDDOCDS ---
Physician Documentation [facility] Name: Janet Siddiqui Age: 56 yrs Sex: Female : 1960 Arrival Date: 06/18/2016 Time: 15:16 Bed TR7 Private MD: Gera Villafana M Disposition: 06/18/16 18:58 Discharged to Home/Self Care. Impression: Acute bronchitis, Cough. - Condition is Stable. - Discharge Instructions: Acute Bronchitis, Cough, Adult. - Prescriptions for Zithromax Z- Ross 250 mg Oral Tablet - take 1 tablet by ORAL route as directed for 5 days Day 1- take two tablets once. Day 2, 3, 4 , 5 take one tablet once daily.; 6 tablet. benzonatate 200 mg Oral Capsule - take 1 capsule by ORAL route 3 times per day As needed; 30 capsule. - Medication Reconciliation, Local Pharmacy Hours form. - Follow up: Gera Villafana; When: Call to arrange an appointment; Reason: Recheck today's complaints, Continuance of care. - Problem is new. - Symptoms are unchanged. Historical: - Allergies: MADDY INHIBITORS (Cough); Lyrica (fluid retention); PENICILLINS (Rash); Cephalexin (Nausea); Reglan (Nausea); - Home Meds: 1. albuterol neb every 4 hours PRN (or rescue inhaler) 2. aspirin 81 mg Oral tab 1 tab once daily 3. brimonidine ophthalmic 1 drop twice a day right eye only 4. Colace 100 mg oral cap 1 cap twice a day PRN 5. metoprolol tartrate 100 mg Oral tab 1 tab 2 times per day 6. Novolog 100 unit/mL Sub-Q soln before meals and bedtime sliding scale 7. Plavix 75 mg Oral tab 1 tab nightly 8. Protonix 40 mg Oral tab 1 tab 2 times per day 9. Omeprazole Unknown Oral 2 times per day 10. simvastatin 20 mg Oral tab 1 tab nightly 11. Singulair 10 mg Oral tab 1 tab once daily 12. spironolactone 25 mg Oral tab 1 tab 2 times per day 13. Timolol Maleate Opht 1 drop 2 times per day right eye only 14. torsemide 50mg oral tab 1 tab twice a day 15. Toujeo Solostar Insulin 40 unit twice a day 16. Uloric 80 mg oral tab 1 tab once daily 17. Artificial Tears ophthalmic as needed - PMHx: Acro Persistent Papular Mucinous; Acute Renal Failure; CAD; CHF; Diabetes - IDDM: controlled; GERD; Hypercholesterolemia; Hypertension; Sinusitis; - PSHx: ; femoral bypass graft; Bilateral AKA; Hernia repair; Stents, Coronary; ICD; CABG; Pacemaker Insertion; Mitral Valve Repair; Cataract Surgery- Bilateral; - Social history: Smoking status: Patient states was never smoker of tobacco. No barriers to communication noted, The patient speaks fluent Japanese, Speaks appropriately for age. - Family history: Not pertinent. - : The pt / caregiver states he / she is on anticoagulants: Plavix. Home medication list is obtained from the patient. - Exposure Risk Screening:: None identified. Vital Signs: 06/18 15:19 BP 148 / 59; Pulse 62; Resp 18 S; Temp 96.0(O); Pulse Ox 98% on R/A; Weight 88.45 kg / gr2 195 lbs (R); Height 3 ft. 9 in. (114.30 cm) (R); Pain 0/10; 17:48 BP 141 / 80; Pulse 59; Resp 20; Temp 98.5(TE); Pulse Ox 95% on R/A; Pain 0/10; ar3 19:06 BP 146 / 68; Pulse 59; Resp 18; Temp 98.3(TE); Pulse Ox 94% on R/A; Pain 0/10; ar3 15:19 Body Mass Index 67.70 (88.45 kg, 114.30 cm) gr2 MDM: 18:10 Chest, 2 View (pa\E\lat) Ordered. EDMS 18:40 Financial registration complete. [email or web address] 18:58 Tessalon Perle 200 mg PO once ordered. mo1 18:58 azithromycin 500 mg PO once ordered. mo1 20:45 [facility] Payment Agreement was scanned into [employer] and attached to record. [email or web address] 06/19 11:02 T-Sheet-- Draft Copy was scanned into [employer] and attached to record. gb 12:58 ED course: gera villafana faxed formal report of cxr for fu mlg. ml Administered Medications: 06/18 19:09 Drug: Tessalon Perle 200 mg Route: PO; [facility] 19:09 Drug: azithromycin 500 mg [azithromycin 250 mg tablet (2 tabs)] Route: PO; [facility] Signatures: Dispatcher [employer] EDLA Pushpa Bailon MD MD Mackenzie Up RN RN [facility] Tawnya Delgado, Reg Reg gb Salima Machuca RN RN [facility] Jon Leroy PA PA ma1 Lorena Brown, Reg Reg [email or web address] The chart was reviewed and I authenticate all verbal orders and agree with the evaluation and treatment provided.Attachments: 20:45 [facility] Payment Agreement [email or web address] 06/19 11:02 T-Sheet-- Draft Copy gb Chart Complete MTDD
--- NOTE | 2016-06-27 11:11 | EDDOCDS ---
Nurse's Notes [facility] Name: Janet Siddiqui Age: 56 yrs Sex: Female : 1960 Arrival Date: 06/18/2016 Time: 15:16 Bed TR7 Private MD: Jaimie Villafana M Diagnosis: Acute bronchitis;Cough Presentation: 06/18 15:26 Presenting complaint: Patient states: SOB started 1-2 weeks. cant lay down now. dx with srm bronchitis 2 weeks ago and placed on antibiotics by supervisor lathing. was on diuretics for CHF then MD's dried her up too muc. Presenting complaint: increased SOB with exertion. dry cough. Adult Sepsis Screening: The patient does not have new or worsening altered mentation. Patient's respiratory rate is less than 22. Systolic blood pressure is greater than 100. Patient has a qSOFA score of 0- Negative Sepsis Screen. Suicide/Homicide risk assessment- the patient denies having any suicidal and/or homicidal ideations and does not present with any other emotional, behavioral or mental health complaints. Status: Patient is not a financial report service sales agent or dependent. Transition of care: patient was not received from another setting of care. 15:26 Acuity: DAVEY Level 3 srm 15:26 Method Of Arrival: Wheelchair srm Triage Assessment: 15:33 General: Appears in no apparent distress, Behavior is appropriate for age, cooperative. srm Pain: Denies pain. HIV screening NA for this visit Offered previously. Respiratory: Onset: The symptoms/episode began/occurred gradually. Historical: - Allergies: MADDY INHIBITORS (Cough); Lyrica (fluid retention); PENICILLINS (Rash); Cephalexin (Nausea); Reglan (Nausea); - Home Meds: 1. albuterol neb every 4 hours PRN (or rescue inhaler) 2. aspirin 81 mg Oral tab 1 tab once daily 3. brimonidine ophthalmic 1 drop twice a day right eye only 4. Colace 100 mg oral cap 1 cap twice a day PRN 5. metoprolol tartrate 100 mg Oral tab 1 tab 2 times per day 6. Novolog 100 unit/mL Sub-Q soln before meals and bedtime sliding scale 7. Plavix 75 mg Oral tab 1 tab nightly 8. Protonix 40 mg Oral tab 1 tab 2 times per day 9. Omeprazole Unknown Oral 2 times per day 10. simvastatin 20 mg Oral tab 1 tab nightly 11. Singulair 10 mg Oral tab 1 tab once daily 12. spironolactone 25 mg Oral tab 1 tab 2 times per day 13. Timolol Maleate Opht 1 drop 2 times per day right eye only 14. torsemide 50mg oral tab 1 tab twice a day 15. Toujeo Solostar Insulin 40 unit twice a day 16. Uloric 80 mg oral tab 1 tab once daily 17. Artificial Tears ophthalmic as needed - PMHx: Acro Persistent Papular Mucinous; Acute Renal Failure; CAD; CHF; Diabetes - IDDM: controlled; GERD; Hypercholesterolemia; Hypertension; Sinusitis; - PSHx: ; femoral bypass graft; Bilateral AKA; Hernia repair; Stents, Coronary; ICD; CABG; Pacemaker Insertion; Mitral Valve Repair; Cataract Surgery- Bilateral; - Social history: Smoking status: Patient states was never smoker of tobacco. No barriers to communication noted, The patient speaks fluent Kinyarwanda, Speaks appropriately for age. - Family history: Not pertinent. - : The pt / caregiver states he / she is on anticoagulants: Plavix. Home medication list is obtained from the patient. - Exposure Risk Screening:: None identified. Screenin:13 Screening information is obtained from the patient. Fall risk: No risks identified. [facility] Assistance ADL's: requires no assistance with activities of daily living. Abuse/DV Screen: The patient / caregiver reports he/she is: not in a situation that causes fear, pain or injury. Nutritional screening: No deficits noted. Advance Directives: Currently, there is a health care proxy, John Siddiqui, . There is no active DNR order. home support is adequate. Assessment: 19:09 General: Appears in no apparent distress, comfortable, Behavior is appropriate for age, [facility] cooperative. Pain: Denies pain. Cardiovascular: Chest pain is denied. Respiratory: Airway is patent Respiratory effort is even, unlabored, Respiratory pattern is regular, symmetrical, Breath sounds are clear bilaterally. Derm: Skin is pink, warm & dry. Vital Signs: 15:19 BP 148 / 59; Pulse 62; Resp 18 S; Temp 96.0(O); Pulse Ox 98% on R/A; Weight 88.45 kg gr2 (R); Height 3 ft. 9 in. (114.30 cm) (R); Pain 0/10; 17:48 BP 141 / 80; Pulse 59; Resp 20; Temp 98.5(TE); Pulse Ox 95% on R/A; Pain 0/10; ar3 19:06 BP 146 / 68; Pulse 59; Resp 18; Temp 98.3(TE); Pulse Ox 94% on R/A; Pain 0/10; ar3 15:19 Body Mass Index 67.70 (88.45 kg, 114.30 cm) gr2 Vitals: 15:19 Log In Time: June 18, 2016 at 15:19. gr2 ED Course: 15:19 Patient visited by Cali Gallo. gr2 15:19 Jaimie Villafana is Private Physician. gr2 15:19 Patient moved to Waiting gr2 15:20 Patient visited by Cali Gallo. gr2 15:20 Patient moved to Pre RCE gr2 15:28 Triage Initiated srm 17:45 Salima Machuca,RN is Primary Nurse. ar3 17:45 Miranda Olivera,RN is Primary Nurse. ar3 17:45 Patient moved to Triage 3 ar3 17:48 Patient visited by Jessie Humphreys PCA. ar3 17:54 Jon Leroy PA is PHCP. mo1 17:55 Nickolas Myles MD is Attending Physician. mo1 17:58 Patient visited by Jon Leroy PA. mo1 18:10 Patient moved to PR2 / 26 ar3 18:10 Patient moved to PD2 / 27 kr3 18:12 Patient moved to PR2 / 26 ar3 18:13 The patient / caregiver is instructed regarding the plan of care and ED course. [facility] 18:58 Jaimie Villafana is Referral Physician. mo1 19:01 Primary Nurse role handed off by Miranda Olivera,RN kr3 19:06 Patient visited by Jessie Humphreys PCA. ar3 19:07 Patient moved to TR2 cz 19:08 Patient moved to TR7 ar3 19:09 No IV's were initiated during this patient's visit. No procedures done that require [facility] assistance. 19:20 Chest, 2 View (pa\E\lat) Returned. EDMS 20:45 [facility] Payment Agreement was scanned into [employer] and attached to record. [email or web address] 06/19 11:02 T-Sheet-- Draft Copy was scanned into [employer] and attached to record. gb Administered Medications: 06/18 19:09 Drug: Tessalon Perle 200 mg Route: PO; [facility] 19:09 Drug: azithromycin 500 mg [azithromycin 250 mg tablet (2 tabs)] Route: PO; [facility] Order Results: Radiology Order: Chest, 2 View (pa\E\lat) Test: Chest, 2 View (pa\E\lat) REASON FOR EXAMINATION: Cough; Clinical: Cough.; ; Technique: AP and lateral views.; ; Comparison: 06/13/2016.; ; Findings:; Stable cardiomegaly. Mild pulmonary venous congestion cannot be excluded. No; focal consolidation, effusion, or pneumothorax. Skeletal structures intact.; ; Impression:; Cannot exclude mild pulmonary venous congestion.; ; ; Signed by; Marty Casillas MD 06/18/2016 06:37 P; Outcome: 18:58 Discharge ordered by Provider. mo1 19:09 Discharge Assessment: Patient awake, alert and oriented x 3. No cognitive and/or [facility] functional deficits noted. Patient verbalized understanding of disposition instructions. patient administered narcotics - no. The following High Risk Discharge criteria are identified: None. Discharged to home via wheelchair, with significant other. Condition: good Condition: stable Condition: improved. Discharge instructions given to patient, Instructed on discharge instructions, follow up and referral plans. medication usage, Demonstrated understanding of instructions, medications, Pt was receptive of discharge instructions/ teaching. Prescriptions given X 2. No special radiology studies were completed. Property :Personal belongings accompany Pt. 19:12 Patient left the ED. [facility] Addendum: 06/27/2016 11:01 Narrative: called back after receiving certified letter - given results of CXR kcs from last visit and states since here they have followed up with [facility] [employer] and they are currently working on the issue. Verified patient's home number that was listed and is correct. Signatures: Dispatcher [employer] Kirstie Rebollar RN RN kcs Michelson, Staci, RN RN srm Zecher, Calvin, RN RN cz Barnhardt, Gloria, Reg Reg Miranda Douglas RN RN kr3 Jessie Humphreys, ADJUNCT HISTORY INSTRUCTOR ADJUNCT HISTORY INSTRUCTOR ar3 Salima Machuca RN RN [facility] Cali Gallo gr2 Jon Leroy PA PA mo1 Lorena Brown, Reg Reg [email or web address] Chart Complete MTDD
--- NOTE | 2016-06-27 11:11 | EDDOCDS ---
Physician Documentation [facility] Name: Janet Siddiqiu Age: 56 yrs Sex: Female : 1960 Arrival Date: 06/18/2016 Time: 15:16 Bed TR7 Private MD: Gera Villafana M Disposition: 06/18/16 18:58 Discharged to Home/Self Care. Impression: Acute bronchitis, Cough. - Condition is Stable. - Discharge Instructions: Acute Bronchitis, Cough, Adult. - Prescriptions for Zithromax Z- Ross 250 mg Oral Tablet - take 1 tablet by ORAL route as directed for 5 days Day 1- take two tablets once. Day 2, 3, 4 , 5 take one tablet once daily.; 6 tablet. benzonatate 200 mg Oral Capsule - take 1 capsule by ORAL route 3 times per day As needed; 30 capsule. - Medication Reconciliation, Local Pharmacy Hours form. - Follow up: Gera Villafana; When: Call to arrange an appointment; Reason: Recheck today's complaints, Continuance of care. - Problem is new. - Symptoms are unchanged. Historical: - Allergies: MADDY INHIBITORS (Cough); Lyrica (fluid retention); PENICILLINS (Rash); Cephalexin (Nausea); Reglan (Nausea); - Home Meds: 1. albuterol neb every 4 hours PRN (or rescue inhaler) 2. aspirin 81 mg Oral tab 1 tab once daily 3. brimonidine ophthalmic 1 drop twice a day right eye only 4. Colace 100 mg oral cap 1 cap twice a day PRN 5. metoprolol tartrate 100 mg Oral tab 1 tab 2 times per day 6. Novolog 100 unit/mL Sub-Q soln before meals and bedtime sliding scale 7. Plavix 75 mg Oral tab 1 tab nightly 8. Protonix 40 mg Oral tab 1 tab 2 times per day 9. Omeprazole Unknown Oral 2 times per day 10. simvastatin 20 mg Oral tab 1 tab nightly 11. Singulair 10 mg Oral tab 1 tab once daily 12. spironolactone 25 mg Oral tab 1 tab 2 times per day 13. Timolol Maleate Opht 1 drop 2 times per day right eye only 14. torsemide 50mg oral tab 1 tab twice a day 15. Toujeo Solostar Insulin 40 unit twice a day 16. Uloric 80 mg oral tab 1 tab once daily 17. Artificial Tears ophthalmic as needed - PMHx: Acro Persistent Papular Mucinous; Acute Renal Failure; CAD; CHF; Diabetes - IDDM: controlled; GERD; Hypercholesterolemia; Hypertension; Sinusitis; - PSHx: ; femoral bypass graft; Bilateral AKA; Hernia repair; Stents, Coronary; ICD; CABG; Pacemaker Insertion; Mitral Valve Repair; Cataract Surgery- Bilateral; - Social history: Smoking status: Patient states was never smoker of tobacco. No barriers to communication noted, The patient speaks fluent [place], Speaks appropriately for age. - Family history: Not pertinent. - : The pt / caregiver states he / she is on anticoagulants: Plavix. Home medication list is obtained from the patient. - Exposure Risk Screening:: None identified. Vital Signs: 06/18 15:19 BP 148 / 59; Pulse 62; Resp 18 S; Temp 96.0(O); Pulse Ox 98% on R/A; Weight 88.45 kg / gr2 195 lbs (R); Height 3 ft. 9 in. (114.30 cm) (R); Pain 0/10; 17:48 BP 141 / 80; Pulse 59; Resp 20; Temp 98.5(TE); Pulse Ox 95% on R/A; Pain 0/10; ar3 19:06 BP 146 / 68; Pulse 59; Resp 18; Temp 98.3(TE); Pulse Ox 94% on R/A; Pain 0/10; ar3 15:19 Body Mass Index 67.70 (88.45 kg, 114.30 cm) gr2 MDM: 18:10 Chest, 2 View (pa\E\lat) Ordered. EDMS 18:40 Financial registration complete. [email or web address] 18:58 Tessalon Perle 200 mg PO once ordered. mo1 18:58 azithromycin 500 mg PO once ordered. mo1 20:45 [facility] Payment Agreement was scanned into [employer] and attached to record. [email or web address] 06/19 11:02 T-Sheet-- Draft Copy was scanned into [employer] and attached to record. gb 12:58 ED course: gera villafana faxed formal report of cxr for fu mlg. ml Administered Medications: 06/18 19:09 Drug: Tessalon Perle 200 mg Route: PO; [facility] 19:09 Drug: azithromycin 500 mg [azithromycin 250 mg tablet (2 tabs)] Route: PO; [facility] Signatures: Dispatcher [employer] EDNC Pushpa Bailon MD MD Mackenzie Up RN RN [facility] Tawnya Delgado, Reg Reg gb Salima Machuca RN RN [facility] Jon Leroy PA PA ok1 Lorena Brown, Reg Reg [email or web address] The chart was reviewed and I authenticate all verbal orders and agree with the evaluation and treatment provided.Attachments: 20:45 [facility] Payment Agreement [email or web address] 06/19 11:02 T-Sheet-- Draft Copy gb Chart Complete MTDD
== END 2016-06-18 19:12 | disposition home or self-care (01) ==
LOC: M ED 15:16
DX: J20.9 Acute bronchitis, unspecified (principal); J06.9 Acute upper respiratory infection, unspecified; I50.9 Heart failure, unspecified; I10 Essential (primary) hypertension; K21.9 Gastro-esophageal reflux disease without esophagitis; I25.10 Atherosclerotic heart disease of native coronary artery without angina pectoris; E11.9 Type 2 diabetes mellitus without complications; E78.00 Pure hypercholesterolemia, unspecified; N17.9 Acute kidney failure, unspecified; Z79.899 Other long term (current) drug therapy; Z79.82 Long term (current) use of aspirin; Z79.02 Long term (current) use of antithrombotics/antiplatelets; Z79.4 Long term (current) use of insulin; Z88.8 Allergy status to other drugs, medicaments and biological substances; Z88.0 Allergy status to penicillin; Z88.1 Allergy status to other antibiotic agents

== ENCOUNTER → 2016-06-20 | Outpatient (REF) | payer OTHER ==
[2016-06-20 19:37] LABS: MEAN CORPUSCULAR HEMOGLOBIN 30.1 pg (27.0-33.0); MEAN CORPUSCULAR HGB CONC 32.2 g/dl (32.0-36.5); MEAN CORPUSCULAR VOLUME 93.4 fl (80.0-96.0); RED CELL DISTRIBUTION WIDTH 15.9 % (11.5-14.5); WHITE BLOOD COUNT 12.4 K/mm3 (4.0-10.0)
[2016-06-20 19:56] LABS: CALCIUM LEVEL 8.7 MG/DL (8.5-10.1); CREATININE FOR GFR 1.89 MG/DL (0.55-1.02); GLOMERULAR FILTRATION RATE 29.1 (>51)
[2016-06-20 20:14] LABS: POTASSIUM SERUM 5.3 MEQ/L (3.5-5.1)
== END ==
LOC: M LAB REF 19:00
PROVIDERS: ATTEND Internal Medicine Cardiovascular Disease
DX: I50.9 Heart failure, unspecified (principal); E11.9 Type 2 diabetes mellitus without complications; I25.10 Atherosclerotic heart disease of native coronary artery without angina pectoris; N28.9 Disorder of kidney and ureter, unspecified

== ENCOUNTER → 2016-06-24 | Outpatient (REF) | payer OTHER ==
[2016-06-24 19:17] LABS: ALBUMIN 3.5 GM/DL (3.2-5.2); ALBUMIN/GLOBULIN RATIO 1.3 (1.00-1.93); BILIRUBIN,TOTAL 0.7 MG/DL (0.2-1.0); CALCIUM LEVEL 8.7 MG/DL (8.5-10.1); CREATININE FOR GFR 1.99 MG/DL (0.55-1.02); GLOMERULAR FILTRATION RATE 27.4 (>51); POTASSIUM SERUM 4.3 MEQ/L (3.5-5.1); TOTAL PROTEIN 6.2 GM/DL (6.4-8.2)
== END ==
LOC: M LAB REF 09:55
PROVIDERS: ATTEND Internal Medicine Cardiovascular Disease
DX: I50.9 Heart failure, unspecified (principal); N28.9 Disorder of kidney and ureter, unspecified

== ENCOUNTER → 2016-07-02 | Outpatient (REF) | payer OTHER ==
[2016-07-02 21:35] LABS: CALCIUM LEVEL 8.4 MG/DL (8.5-10.1); CREATININE FOR GFR 2.24 MG/DL (0.55-1.02); GLOMERULAR FILTRATION RATE 23.9 (>51); POTASSIUM SERUM 4.2 MEQ/L (3.5-5.1)
== END ==
LOC: M LAB REF 09:41
PROVIDERS: ATTEND Internal Medicine Cardiovascular Disease
DX: I50.9 Heart failure, unspecified (principal); N18.9 Chronic kidney disease, unspecified

== ENCOUNTER → 2016-07-30 | Outpatient (REF) | payer OTHER | LOC: M LAB REF 16:46 | PROVIDERS: ATTEND Internal Medicine Nephrology | DX: N18.4 Chronic kidney disease, stage 4 (severe) (principal) ==

== ENCOUNTER → 2016-08-01 | Outpatient (REF) | payer OTHER ==
[2016-08-01 18:45] LABS: CREATININE, SERUM 1.8 MG/DL (0.6-1.0)
[2016-08-01 19:25] LABS: CREATININE CLEARANCE, URINE 21.1 ML/MIN (75-115)
== END ==
LOC: M LAB REF 17:07
PROVIDERS: ATTEND Internal Medicine Nephrology
DX: N18.4 Chronic kidney disease, stage 4 (severe) (principal)

== ENCOUNTER 2016-08-23 05:46 | Inpatient (IN) | payer OTHER ==
[~2016-08-23] VITALS: Ht 114.3 cm; Wt 93.0 kg
[~2016-08-23 05:46] MED LIST changes: +ALPH0.156 OD; -ALPH0.156 OU; -COLA100C PO; +COLA100C3 PO
[2016-08-23 06:44] LABS: BASO # 0.1 K/mm3 (0.0-0.2); BASO % 0.7 % (0.0-1.0); EOS # 0.2 K/mm3 (0.0-0.50); EOS % 1.9 % (0.0-3.0); LARGE UNSTAINED CELL # 0.1 K/mm3 (0.0-0.4); LARGE UNSTAINED CELL % 1.3 % (0.0-4.0); LYMPH # 1.2 K/mm3 (1.5-4.5); LYMPH % 10.1 % (24.0-44.0); MEAN CORPUSCULAR HEMOGLOBIN 29.1 pg (27.0-33.0); MEAN CORPUSCULAR HGB CONC 30.7 g/dl (32.0-36.5); MEAN CORPUSCULAR VOLUME 95.1 fl (80.0-96.0); MONO # 0.7 K/mm3 (0.0-0.8); MONO % 6.5 % (0.0-5.0); NEUTROPHILS # 8.2 K/mm3 (1.8-7.7); NEUTROPHILS % 79.5 % (36.0-66.0); PLATELET COUNT, AUTOMATED 206 k/mm3 (150-450); RED CELL DISTRIBUTION WIDTH 15.2 % (11.5-14.5); WHITE BLOOD COUNT 10.3 K/mm3 (4.0-10.0)
[2016-08-23 06:53] LABS: ALBUMIN 3.3 GM/DL (3.2-5.2); ALBUMIN/GLOBULIN RATIO 1.18 (1.00-1.93); BILIRUBIN,DIRECT 0.3 MG/DL (0.0-0.2); BILIRUBIN,TOTAL 0.7 MG/DL (0.2-1.0); CREATININE FOR GFR 2.16 MG/DL (0.55-1.02); GLOMERULAR FILTRATION RATE 24.9 (>51); POTASSIUM SERUM 3.8 MEQ/L (3.5-5.1); TOTAL PROTEIN 6.1 GM/DL (6.4-8.2)
[2016-08-23] MEDS ORDERED: FUROSEMIDE 20 MG/2 ML VIAL (J1940) IV ONE ×2 (07:30→09:15)
--- NOTE | 2016-08-23 07:51 | REP ---
Portable chest, 06:30 a.m., 2016: Comparison is 2016. Cardiomegaly and pacemaker are again noted, unchanged. Interstitial coarsening of mild interstitial indistinctness are again noted compatible with mild pulmonary edema, unchanged. No pleural effusions. Sternotomy wires are noted. On the comparison lateral view there is a cardiac valve replacement. There is no lateral view of the current study. Impression: No interval change. Signed by Atul Ramon MD 08/23/2016 07:43 A
--- NOTE | 2016-08-23 08:21 | REP ---
AP view of the pelvis: Single view. History: Trauma. Findings: Single AP view of the pelvis demonstrates vascular calcification, an arterial stent in the left proximal superficial femoral artery, and clips in the right inguinal soft tissues. The bony pelvic ring is intact. There is a peripherally calcified mass in the central pelvis consistent with a uterine myoma. This measures 4.9 cm in greatest diameter. The visualized bowel gas pattern is normal. No pelvic, sacral, or hip fracture is seen. Impression: No fracture noted. 4.9 cm uterine myoma peripherally calcified. Vascular calcification, left stent, right clips. Signed by Hira Brock MD 08/23/2016 12:46 P
--- NOTE | 2016-08-23 08:22 | REP ---
Lumbar spine series: Five views. History: Trauma. Findings: Five views of the lumbar spine show preserved vertebral body heights. No fracture or collapse is seen. No malalignment is seen. There is degenerative disc disease most pronounced at L1-2. Pedicles and posterior elements are intact. There is some osteoarthritic facet hypertrophy bilaterally at L5-S1. Vascular calcification is noted in a normal caliber aorta and in its branches. Impression: Degenerative disc disease at L1-2. Osteoarthritic facet disease at L5-S1. No traumatic abnormality noted. Signed by Hira Brock MD 08/23/2016 12:46 P
[2016-08-23] MEDS ORDERED: FEBUXOSTAT 40 MG TABLET (ULORIC) PO SCH (09:00)
[2016-08-23] MEDS ORDERED: BRIMONIDINE 0.15% OPHTH SOLN 5 ML OD SCH (09:00)
[2016-08-23] MEDS ORDERED: LIDOCAINE 5% OINT 30 GM TOP SCH (09:00)
[2016-08-23] MEDS ORDERED: TIMOLOL MALEATE 0.5% OPHTH SOLN 5 ML OD SCH (09:00)
[2016-08-23] MEDS ORDERED: SPIRONOLACTONE 25 MG TAB PO SCH (09:00)
[2016-08-23] MEDS ORDERED: ASPIRIN 81 MG CHEW TABLET PO SCH (09:00)
[2016-08-23] MEDS ORDERED: MINOCYCLINE 50 MG CAP PO SCH (09:00)
[2016-08-23] MEDS ORDERED: DOCUSATE SODIUM 100 MG CAP PO SCH (09:00)
[2016-08-23] MEDS ORDERED: GABAPENTIN 100 MG CAP PO SCH ×2 (09:00→16:00)
[2016-08-23] MEDS ORDERED: PANTOPRAZOLE 40MG TAB (PROTONIX) PO SCH (09:00)
[2016-08-23] MEDS ORDERED: METOPROLOL TARTRATE 100 MG TAB PO SCH ×2 (09:00→21:00)
[2016-08-23] MEDS ORDERED: MAGNESIUM OXIDE 400 MG TAB (MAG-OX) PO SCH (09:00)
[2016-08-23] MEDS ORDERED: CLOPIDOGREL 75 MG TAB PO SCH ×2 (09:00→21:00)
[2016-08-23] MEDS ORDERED: LORazepam 1 MG TAB PO ONE (11:00)
[2016-08-23] MEDS ORDERED: MAGN400T5 PO (11:02)
[2016-08-23] MEDS ORDERED: TORS100T PO (11:08)
[2016-08-23] MEDS ORDERED: POTA20EL PO (11:08)
[2016-08-23] MEDS ORDERED: REST0.05 OU (11:08)
[2016-08-23] MEDS ORDERED: REFR1DRO8 OU (11:08)
[2016-08-23] MEDS ORDERED: MINO50TA PO (11:08)
[2016-08-23] MEDS ORDERED: OMEP20CA3 PO (11:08)
[2016-08-23] MEDS ORDERED: TIMO5OPD OD (11:08)
[2016-08-23] MEDS ORDERED: ACET30TAB PO (11:08)
[2016-08-23] MEDS ORDERED: ALBUTEROL 90 MCG/ACT 8GM HFA INHALER INH PRN (11:30)
[2016-08-23] MEDS ORDERED: ACETAMINOPH W/CODEINE #3 TAB UD PO PRN (11:30)
[2016-08-23] MEDS ORDERED: ALBUTEROL SULFATE 2.5 MG/0.5 ML INH NEB SOLN INH PRN (11:30)
[2016-08-23] MEDS ORDERED: DEXTROSE 50% 50 ML SYRINGE IV PRN (11:30)
[2016-08-23] MEDS ORDERED: GLUCOSE 4 GM CHEW TABLET PO PRN (11:30)
[2016-08-23] MEDS ORDERED: GLUCAGON FOR INJ 1 MG VIAL (J1610) SC PRN (11:30)
[2016-08-23] MEDS ORDERED: FUROSEMIDE 40 MG/4 ML VIAL (J1940) IV SCH (12:00)
[2016-08-23] MEDS ORDERED: HumaLOG INSULIN (NovoLOG) PER UNIT SC SCH ×2 (12:00→21:00)
--- NOTE | 2016-08-23 12:11 | HPEPDOC ---
General Date of Admission Aug 23, 2016 at 10:28 Chief Complaint The patient is a 56-year-old female admitted with a reason for visit of Acute Exacerbation Of Chf. Source: Patient, Family Timing/Duration: Week(s) (one) History of Present Illness Ms. Siddiqui is a 56-year-old female with past medical history of coronary artery disease status post stent placement and mitral valve repair with CABG, peripheral arterial disease status post bilateral AKA, diabetes mellitus 2, renal insufficiency who presents with complaints of a one week history of cough and progressive weight gain of 7 to 10 lbs, patient states that she has been coughing more over the past 10 days with a productive clear/miranda , thick mucus. She is unable to lay flat due to increased shortness of breath, this has led to her not being able to sleep very well and extreme fatigue. She is also experiencing excruciating bilateral leg pain that has been persistent for the past month or so. The pt denies fever, chills or muscle aches, denies abdominal pain, n/v nor change in her urinary or bowel habits, she has been taking all of her medications religiously she states and there have not been any recent changes to them. She stats she has not changed her diet and has not consumed excess sodium lately. She also states that no pain medications work for her since her her AKA's where she states she was "hooked on pain meds because they gave her too much", she states that she would not like any pain control medications because they do not work. She thinks the pain is coming from constantly sitting on her bottom and her sciatic nerve being affected. Home Medications Scheduled (Bairon Rain) 300 Unit/Ml Inj 40 UNIT SC DAILY (Reported) (Restasis) 0.05 % Emu 1 DROP OU BID (Reported) Aspirin (Aspirin EC) 81 Mg Tab 81 MG PO DAILY (Reported) Brimonidine Tartrate 0.15% (Alphagan P) 0.15 % [place] 1 DROP OD BID (Reported) Clopidogrel Bisulfate (Plavix) 75 Mg Tab 75 MG PO QHS (Reported) Docusate Sodium (Colace) 100 Mg Cap 100 MG PO BID (Reported) Febuxostat (Uloric) 80 Mg Tab 80 MG PO DAILY (Reported) Insulin Aspart (Novolog) 100 U/Ml Inj 1 DOSE SC ACHS (Reported) PER SLIDING SCALE Magnesium Oxide (Magnesium Oxide 400) 400 Mg Tab 400 MG PO 3XW (Reported) FRI, WED, FRI Metolazone (Metolazone) 2.5 Mg Tab 2.5 MG PO QWEEK (Reported) FRIDAY Metoprolol Tartrate (Metoprolol Tartrate) 100 Mg Tab 100 MG PO BID (Reported) Minocycline HCl (Minocycline HCl) 50 Mg Tab 50 MG PO BID (Reported) Montelukast Sodium (Singulair) 10 Mg Tab 10 MG PO QPM (Reported) Omeprazole (Omeprazole) 20 Mg Cap 20 MG PO BID (Reported) Pantoprazole Sodium Sesquihydr (Protonix) 40 Mg Tab 40 MG PO BID (Reported) Potassium Chloride (Potassium Chloride) 10 % Maria [place] Carm[place] 15 ML PO DAILY (Reported) Spironolactone (Spironolactone) 25 Mg Tab 25 MG PO BID (Reported) Timolol Maleate (Timolol Maleate) 0.5 % [place] 1 DROP OD BID (Reported) Torsemide (Torsemide) 100 Mg Tab 50 MG PO BID (Reported) Scheduled PRN Acetaminophen/Codeine (Tylenol/Codeine #3) Tab 1 TAB PO TID PRN PRN PAIN ( Reported) Albuterol Sulfate (Albuterol Sulfate) 2.5 Mg/3 Ml Nebu 2.5 MG INH Q4H PRN PRN SHORTNESS OF BREATH (Reported) Albuterol Sulfate (Ventolin Hfa) 200 Puff/8 Gm Aers 2 PUFF INH Q4H PRN PRN SHORTNESS OF BREATH (Reported) Carboxymethylcellulose Sod (Refresh 1.4-0.6 %) 1 Ea Maria [place] Carmen 1 DROP OU Q3HP PRN PRN DRY EYES (Reported) Allergies Coded Allergies: Pregabalin (Verified Allergy, Severe, EDEMA, 03/17/13) Penicillins (Verified Allergy, Intermediate, RASH AND ITCHING, 03/17/13) Penicillins Cross Reactors (Verified Allergy, Intermediate, RASH, 03/07/14) MADDY Inhibitors (Verified Allergy, Unknown, 04/14/13) Cephalexin (Verified Adverse Reaction, Intermediate, GI UPSET, 03/17/13) Nitroglycerin (Verified Adverse Reaction, Intermediate, INTENSE TOPICAL BURNING & REDNESS FROM PATCH, 06/07/15) TAPE (Verified Adverse Reaction, Intermediate, BAINDAIDS- SKIN STARTS TO PEEL AWAY, 09/02/12) Metoclopramide (Verified Adverse Reaction, Mild, N/V, 03/07/14) Past Medical History Medical History Coronary artery disease status post stent placement and mitral valve repair and CABG Peripheral arterial disease status post bilateral AKA Diabetes mellitus Renal insufficiency Surgical History CABG Pacemaker insertion Umbilical hernia Bilateral AKA Family History Significant Family History: No pertinent family hx Social History * Smoker: Denies Alcohol: Denies Drugs: denies Review of Symptoms Constitutional: Denies: Chills, Fever Eyes: Denies: Conjunctivae inflammation, Eyelid inflammation, Redness, Vision change Skin: Denies: Rash Pulmonary: Reports: Cough, Dyspnea, Denies: Pleuritic Chest Pain Cardiovascular: Reports: Edema, Orthopnea, Denies: Chest Pain, Palpitations Gastrointestinal: Reports: Nausea, Denies: Abdominal Pain, Constipation, Diarrhea, Vomiting Genitourinary: Denies: Dysuria Musculoskeletal: Reports: Other Symptoms (b/l buttox pain excruiating ), Denies: Back Pain, Neck Pain Neurological: Denies: Weakness Psych: Reports: Mood Normal Physical Examination General Exam: Positive: Alert, Severe Distress (in severe pain in b/l buttox region) Eye Exam: Positive: EOMI, Negative: Ptosis ENT Exam: Positive: Atraumatic, Nares Patent Chest Exam: Positive: Clear to auscultation, Normal air movement, Negative: Rales, Rhonchi, Wheezing Heart Exam: Positive: Normal S1, Normal S2, Rate Normal, Negative: Bradycardic, Gallops, Murmurs, Rubs, Tachycardic Telemetry: Positive: Other Telemetry: (V-paced) Abdomen Exam: Positive: Normal bowel sounds, Soft, Negative: BS Hyperactive, BS Hypoactive, Hepatospenomegaly, Mass, Tenderness Extremity Exam: Positive: Edema, Negative: Clubbing, Cyanosis Skin Exam: Positive: Nl turgor and temperature Vital Signs Vital Signs Date Time Temp Pulse Resp B/P Pulse Ox O2 Delivery O2 Flow Rate FiO2 08/23/16 11:21 97.0 60 22 125/55 97 08/23/16 10:27 Room Air Laboratory Data Labs 24H Laboratory Tests 2 08/23/16 06:19: Aspartate Amino Transf (AST/SGOT) 18, Alanine Aminotransferase (ALT/SGPT) 25, Alkaline Phosphatase 212H, Total Bilirubin 0.7, Direct Bilirubin 0.3H, Albumin 3.3, Albumin/Globulin Ratio 1.18, Anion Gap 8, B-Type Natriuretic Peptide 1620H , White Blood Count 10.3H, Red Blood Count 4.49, Hemoglobin 13.1, Hematocrit 42.7, Mean Corpuscular Volume 95.1, Mean Corpuscular Hemoglobin 29.1, Mean Corpuscular Hemoglobin Concent 30.7L, Red Cell Distribution Width 15.2H, Platelet Count 206, Neutrophils (%) (Auto) 79.5H, Lymphocytes (%) (Auto) 10.1L, Monocytes (%) (Auto) 6.5H, Eosinophils (%) (Auto) 1.9, Basophils (%) (Auto) 0.7 , Neutrophils # (Auto) 8.2H, Lymphocytes # (Auto) 1.2L, Monocytes # (Auto) 0.7, Eosinophils # (Auto) 0.2, Basophils # (Auto) 0.1, Calcium Level 8.0L, Creatine Kinase MB 3.5, Creatine Kinase MB Relative Index 2.96, Glomerular Filtration Rate 24.9L, Large Unclassified Cells # 0.1, Large Unclassified Cells % 1.3, Total Creatine Kinase 118, Total Protein 6.1L, Troponin I 0.03 CBC/BMP Laboratory Tests 08/23/16 06:19 Red Blood Count 4.49, Mean Corpuscular Volume 95.1, Mean Corpuscular Hemoglobin 29.1, Mean Corpuscular Hemoglobin Concent 30.7 L, Red Cell Distribution Width 15.2 H, Neutrophils (%) (Auto) 79.5 H, Lymphocytes (%) (Auto) 10.1 L, Monocytes (%) (Auto) 6.5 H, Eosinophils (%) (Auto) 1.9, Basophils (%) (Auto) 0.7, Neutrophils # (Auto) 8.2 H, Lymphocytes # (Auto) 1.2 L, Monocytes # (Auto) 0.7, Eosinophils # (Auto) 0.2, Basophils # (Auto) 0.1 Problems (1) Acute exacerbation of CHF (congestive heart failure) Status: Acute Response to Treatment: Stable Problem Text: BNP elevated to 1620 Begin Lasix therapy Fluid restriction Strict I&O's Daily weights (2) Shortness of breath Status: Acute Response to Treatment: Stable Problem Text: Likely secondary to CHF exasperation DuoNeb therapy ordered (3) Bilateral buttock pain Status: Acute Response to Treatment: Stable Problem Text: may be 2/2 radiculopathy from sitting on her buttocks, she states she has upcoming appt with local neurology next week. Unfortunately the patient states that most pain medications do not work for her as she was put on a lot of pain medication for her bilateral AKA and states that she became hooked on them and tolerant of their effects States she does not want any pain medication have spoken to neurologist functional architect, unfortunately due to her pacemaker we cannot do a lumbar sacral MRI have scheduled gabapentin therapy although pt states that it never worked, she may change her mind during this stay to try it again Neurology has been consulted, appreciate their recommendations (4) Hypertension Status: Chronic Response to Treatment: Stable Problem Text: c/w home medications stable 121/59 (5) Dyslipidemia Status: Chronic Response to Treatment: Stable Problem Text: c/w home medications stable (6) DM2 (diabetes mellitus, type 2) Status: Chronic Response to Treatment: Stable Problem Text: sliding scale insulin Plan / VTE VTE Prophylaxis Ordered?: Yes GME ATTESTATION GME ATTESTATION My preceptor for this patient encounter was physically present in the building during the encounter and was fully available. As needed, all aspects of the patient interview, examination, medical decision making process, and medical care plan development were reviewed and approved by the preceptor. Preceptor is aware and concurs with the plan as stated in the body of this note and will attest to such by his/her cosignature. STEFANO SERRA DO Aug 23, 2016 12:11
[2016-08-23 13:00] VITALS: BP 148/87
--- NOTE | 2016-08-23 20:29 | ECGEPIP ---
Stationary ECG Study [facility] - ED Test Date: 2016-08-23 Pat Name: CHAVO GEORGE Department: Room: - Gender: F Aircraft Engine Technician: STORMY : 1960 Requested By: KOBI TURNER PA-C. Order Number: [id number] Reading MD: Fela Lopez Measurements Intervals [place] Rate: 60 P: 224 MT: 159 QRS: -81 QRSD: 197 T: 125 QT: 530 QTc: 530 Interpretive Statements ELECTRONIC ATRIAL PACEMAKER ELECTRONIC VENTRICULAR PACEMAKER ABNORMAL RHYTHM ECG SIMILAR 02/13/16 Electronically Signed On 08-23-2016 20:29:09 EDT by Fela Lopez
[2016-08-23] MEDS ORDERED: SIMVASTATIN 20 MG TAB PO SCH (21:00)
[2016-08-23] MEDS ORDERED: MONTELUKAST 10 MG TAB PO SCH (21:00)
[2016-08-23] MEDS ORDERED: OMEPRAZOLE 20 MG CAP PO SCH (21:00)
[2016-08-24] MEDS ORDERED: ASPIRIN 81 MG ENTERIC TAB PO SCH (09:00)
== END 2016-08-23 16:14 | disposition left against medical advice (07) | DRG 194 ==
LOC: EDBD 05:46 → M ED 07:26 → M ED INP 10:28 → M PCU 13:00
PROVIDERS: ADMIT General Practice; ATTEND General Practice
DX: I11.0 Hypertensive heart disease with heart failure (principal); Z89.611 Acquired absence of right leg above knee; Z89.612 Acquired absence of left leg above knee; I50.9 Heart failure, unspecified; I73.9 Peripheral vascular disease, unspecified; I25.10 Atherosclerotic heart disease of native coronary artery without angina pectoris; E78.5 Hyperlipidemia, unspecified; E11.319 Type 2 diabetes mellitus with unspecified diabetic retinopathy without macular edema; N28.9 Disorder of kidney and ureter, unspecified; Z79.82 Long term (current) use of aspirin; Z79.4 Long term (current) use of insulin; Z88.0 Allergy status to penicillin; Z88.8 Allergy status to other drugs, medicaments and biological substances; Z91.048 Other nonmedicinal substance allergy status; Z95.5 Presence of coronary angioplasty implant and graft; Z95.0 Presence of cardiac pacemaker

== ENCOUNTER → 2016-09-11 | Outpatient (CLI) | payer OTHER ==
[~2016-09-11] MED LIST changes: +ACET30TAB PO; +MINO50TA PO; +OMEP20CA3 PO; +REFR1DRO8 OU; +REST0.05 OU; +TIMO5OPD OD; +TORS100T PO
--- NOTE | 2016-09-11 17:33 | REP ---
CT lumbar spine without contrast: History: Low back pain. Pain in the left leg. Skin paresthesias left lower extremity. Comparison lumbar spine radiographs 08/23/2016. Comparison abdomen and pelvis CT images 10/31/2014. Technique: Helical scanning is acquired and contiguous 4 mm axial images are reformatted. Coronal and sagittal multiplanar reformation images are generated and reviewed. CT findings: Lumbar vertebral body heights are preserved and alignment is normal. There is degenerative disc disease to some degree at each lumbar level. There is narrowing at the L1-2 intervertebral disc. There is anterior posterior osteophytic ridging. There is diffuse disc bulging and central canal stenosis seen at L1-2. These changes are unchanged when compared to the 10/31/[address] abdomen exam. There is mild ligamentum flavum hypertrophy at this level as well contributing to the central canal stenosis. There proximal levels are unremarkable. At L2-3, there is mild diffuse disc bulging. No central canal stenosis or disc herniation is seen. No neural foraminal encroachment is seen. At L3-L4, there is minimal facet hypertrophy. No other significant finding. At L4-L5, there is minimal diffuse disc bulging and mild bilateral facet hypertrophy. No central canal stenosis or neural foraminal encroachment is seen. L5-S1, there is mild to moderate bilateral facet hypertrophy. No other significant finding. Impression: Central canal stenosis at L1-2 due to posterior disc bulging and osteophytic ridging as well as ligamentum flavum hypertrophy and developmentally rather short pedicles. Signed by Hira Brock MD 09/12/2016 12:52 P
== END ==
LOC: M RAD 13:50
PROVIDERS: ATTEND Psychiatry & Neurology Neurology
DX: M99.53 Intervertebral disc stenosis of neural canal of lumbar region (principal); R20.2 Paresthesia of skin

== ENCOUNTER 2016-11-19 17:54 | Inpatient (IN) | payer OTHER ==
[~2016-11-19] VITALS: Ht 160 cm; Wt 89.5 kg
[~2016-11-19 17:54] MED LIST changes: -ASPI81TA13 PO; +ASPI81TA24 PO; -COLA100C3 PO; +COLA100C5 PO; +HYDR-3911 PO; -HYDR-4267 PO; -METO100T PO; +METO100T5 PO; +PERC5TAB12 PO; -PERC5TAB6 PO; +PLAV1TAB2 PO; -PLAV75TA38 PO; +TIMO0.5S29 OD; -TIMO5OPD OD
[2016-11-19] MEDS ORDERED: BACT400T PO (18:24)
[2016-11-19] MEDS ORDERED: ULOR80TA PO (18:24)
[2016-11-19] MEDS ORDERED: XIID5DRO OU (18:24)
[2016-11-19] MEDS ORDERED: REFRSOL OU (18:24)
[2016-11-19] MEDS ORDERED: TORS100T PO (18:24)
[2016-11-19 19:53] LABS: BASO # 0.1 K/mm3 (0.0-0.2); BASO % 0.7 % (0.0-1.0); EOS # 0.1 K/mm3 (0.0-0.50); EOS % 1.4 % (0.0-3.0); LARGE UNSTAINED CELL # 0.2 K/mm3 (0.0-0.4); LARGE UNSTAINED CELL % 1.7 % (0.0-4.0); LYMPH # 1.4 K/mm3 (1.5-4.5); LYMPH % 13.9 % (24.0-44.0); MEAN CORPUSCULAR HGB CONC 32.2 g/dl (32.0-36.5); MEAN CORPUSCULAR VOLUME 96.2 fl (80.0-96.0); MONO # 0.8 K/mm3 (0.0-0.8); MONO % 8.2 % (0.0-5.0); NEUTROPHILS # 6.7 K/mm3 (1.8-7.7); NEUTROPHILS % 74.1 % (36.0-66.0); PLATELET COUNT, AUTOMATED 186 k/mm3 (150-450); RED CELL DISTRIBUTION WIDTH 15.2 % (11.5-14.5); WHITE BLOOD COUNT 9.1 K/mm3 (4.0-10.0)
[2016-11-19 20:19] LABS: ERYTHROCYTE SEDIMENTATION RATE 3 mm/hr (0-30)
[2016-11-19 20:58] LABS: CALCIUM LEVEL 8.3 MG/DL (8.5-10.1); CREATININE FOR GFR 2.44 MG/DL (0.55-1.02); GLOMERULAR FILTRATION RATE 21.7 (>51); POTASSIUM SERUM 4.1 MEQ/L (3.5-5.1)
[2016-11-19] MEDS: HumaLOG INSULIN (NovoLOG) PER UNIT SC SCH (21:00)
[2016-11-19] MEDS ORDERED: PERCOCET 5MG/325MG TAB PO PRN (22:30)
[2016-11-19] MEDS ORDERED: GLUCOSE 4 GM CHEW TABLET PO PRN (22:30)
[2016-11-19] MEDS ORDERED: IPRATROPIUM 0.5MG/ALBUTEROL 2.5MG INH SOL UD 3ML (DUONEB)(J7620) NEB PRN (22:30)
[2016-11-19] MEDS ORDERED: GLUCAGON FOR INJ 1 MG VIAL (J1610) SC PRN (22:30)
[2016-11-19] MEDS ORDERED: XYZA5TAB2 PO (23:01)
[2016-11-19] MEDS ORDERED: TRIA1OI TOP (23:01)
[2016-11-19] MEDS ORDERED: FLON50SP (23:01)
[2016-11-19 23:45] VITALS: BP 156/67
[2016-11-20] MEDS: OMEPRAZOLE 20 MG CAP PO SCH ×3 (00:43→20:50)
[2016-11-20] MEDS: CLOPIDOGREL 75 MG TAB PO SCH ×2 (00:43→20:50)
[2016-11-20] MEDS: MONTELUKAST 10 MG TAB PO SCH ×2 (00:43→20:52)
[2016-11-20] MEDS: PANTOPRAZOLE 40MG TAB (PROTONIX) PO SCH ×4 (00:44→20:50)
[2016-11-20] MEDS: SPIRONOLACTONE 25 MG TAB PO SCH ×3 (00:44→20:51)
[2016-11-20] MEDS: ACETAMINOPHEN TAB 650MG DOSE (2X325MG) PO PRN ×2 (00:44→08:50)
[2016-11-20] MEDS: FLUTICASONE PROP 0.05% NASAL SPRAY 16 GM (FLONASE) SCH ×2 (00:44→20:54)
[2016-11-20] MEDS: BRIMONIDINE 0.15% OPHTH SOLN 5 ML OD SCH ×3 (00:45→20:53)
[2016-11-20] MEDS: METOPROLOL TARTRATE 100 MG TAB PO SCH ×3 (00:45→20:52)
[2016-11-20] MEDS: TIMOLOL MALEATE 0.5% OPHTH SOLN 5 ML OD SCH ×3 (00:45→20:53)
[2016-11-20] MEDS: MUPIROCIN 2% CREAM 30GM TOP SCH ×3 (00:45→20:53)
[2016-11-20] MEDS: CEFTAROLINE FOSAMIL 200 MG in D5W 50 ML IV SCH ×2 (02:00→14:06)
[2016-11-20] MEDS: IPRATROPIUM 0.5MG/ALBUTEROL 2.5MG INH SOL UD 3ML (DUONEB)(J7620) NEB SCH ×4 (02:00→20:09)
--- NOTE | 2016-11-20 05:30 | HPE ---
DATE OF ADMISSION: 11/19/2016 PRIMARY CARE PROVIDER: Nasim Justin. PRODUCTION STAFF WORKER: Dr. Velasco. FINISH MOLDER: Dr. Norris. CHIEF COMPLAINT: Painful skin rash bilateral hands and also stumps of her lower extremities. HISTORY OF PRESENT ILLNESS: This is a 56-year-old female patient with underlying medical history of coronary arterial disease with stent placement, mitral valve repair and also coronary artery bypass graft (CABG) with congestive heart failure (CHF), automatic implantable cardioverter defibrillator (AICD), peripheral artery disease with bilateral above-knee amputation, type two diabetes, renal insufficiency, obesity. The patient presented with one week of progressively worsening bilateral upper extremity skin lesions initiated on her hands, bilateral knuckle area, subsequently spreading to her fingers as well as to her forearms with crusting lesions, but her knuckle area skin crust has been falling off with skin breakdown and cracks. As per patient, it was itchy, burning and painful. Initially was given triamcinolone with not much improvement, later was using bacitracin ointment with not much improvement, just yesterday started with Bactrim but has not improved much. The patient also noticed that her stumps on her lower extremity have also started to develop similar lesions. No similar lesions in the family and no history of similar lesions. Lesions also have occurred on her bilateral elbows with painful to palpation. No oral mucosal, genitalia or buttock involvement. No eye involvement. Denies any fevers or chills, yellow crusting lesion. No bullae. Denies any chest pain, shortness of breath, abdominal pain, diarrhea. No recent medication changes. ALLERGIES: 1. ANGIOTENSION-CONVERTING ENZYME (AMDDY) INHIBITORS. 2. KEFLEX. 3. REGLAN. 4. NITROGLYCERIN. 5. PENICILLIN with rash. 6. PREGABALIN. 7. TAPE. PAST MEDICAL HISTORY: 1. Coronary arterial disease with stent and mitral valve repair and CABG. 2. Peripheral vascular disease with bilateral above-knee amputation. 3. Type 2 diabetes. 4. Renal insufficiency. PAST SURGICAL HISTORY: 1. CABG, 2007. 2. AICD insertion 2008. 3. section. 4. Umbilical hernia. 5. Above-knee amputation. 6. Cataract surgery. FAMILY HISTORY: Denies family history of cancer or psoriasis. SOCIAL HISTORY: Lives with . Care by . Denies history of smoking or alcohol drinking or illicit drug use. REVIEW OF SYSTEMS: Reported bilateral upper extremity pain and rash as mentioned in history of present illness (HPI) and also lower extremity stump rash. All other review of systems is negative. HOME MEDICATIONS: - Tylenol 3 three times a day as needed - albuterol nebulizer every four hours as needed - Ventolin inhaler every four hours as needed - aspirin 81 mg by mouth daily - Alphagan eye drops twice a day - carboxymethylcellulose eye drops every three hours as needed - Plavix 75 mg by mouth at bedtime - Colace 100 mg by mouth twice a day - Uloric 80 mg by mouth daily - NovoLog insulin premeal. - magnesium oxide 400 mg by mouth three times a week - metolazone 2.5 mg by mouth every Friday - metoprolol 100 mg by mouth twice a day - minocycline 50 mg by mouth twice a day - Singulair 10 mg by mouth every evening - omeprazole 20 mg by mouth twice a day - Protonix 40 mg by mouth twice a day - potassium chloride 15 mL 10% solution by mouth daily - spironolactone 25 mg by mouth twice a day - timolol eye drops twice a day 0.5% - torsemide 50 mg by mouth every evening and 100 mg by mouth every morning - Toujeo 30 units subcutaneous daily - Bactrim 400 mg in 80 mg combination by mouth twice a day PHYSICAL EXAMINATION: VITAL SIGNS: Temperature 96, pulse 61, respirations 20, blood pressure 142/78, pulse oximetry 99% on room air. GENERAL: Patient alert and oriented times three, obese, in no acute distress. HEENT: Normocephalic, atraumatic. PULMONARY: Distant breath sounds. No wheezes, rales, or rhonchi. CARDIAC: Regular S1, S2. Distant heart sounds. No murmurs appreciated. ABDOMEN: Soft, obese, nontender. Positive bowel sounds. EXTREMITIES: Bilateral upper extremities with crusting lesions, most of skin breakdown involving the knuckle area but the crusting lesions yellow crust has been spreading to the forearms and also involving bilateral elbows, sparing the flexor surface, most predominately on the extensor surface of the bilateral upper extremities. Mild involvement of the stumps on the lower extremities of the patient. The patient's back has small papular erythematous lesions, does not look like what is happening on her upper extremities. Oral mucosa is intact. LABORATORY DATA: WBC 9.1, hemoglobin and hematocrit 14.6 over 45.3. Platelets 186. Chemistry: Sodium 130, potassium 4.1, chloride 92, bicarbonate 31, BUN 80, creatinine 2.44. C-reactive protein 2.6. ASSESSMENT AND PLAN: This is a 56-year-old female patient with underlying medical history of chronic kidney disease (CKD), congestive heart failure (CHF), coronary arterial disease, peripheral vascular disease with coronary artery bypass graft (CABG), automatic implantable cardioverter defibrillator (AICD) and also bilateral above-knee amputation, diabetes, and asthma, obesity, admitted with possibly impetigo versus cellulitis. 1. Skin infection, impetigo versus cellulitis. Will get skin cultures, fungal cultures, blood cultures. Followup C-reactive protein. Started on Teflaro 200 mg intravenous (IV) twice a day, as well as mupirocin cream. Will consult infectious disease in the morning. If does not improve, will potentially need a skin biopsy. Followup C-reactive protein. 2. Mild elevation of creatinine in the setting of chronic kidney disease (CKD) stage IV. Baseline creatinine of around 2. Likely secondary to Bactrim. Will not give IV fluids. Continue to monitor BUN and creatinine. Will hold diuretics if need to. Consider nephrology consultation if patient does not improve. 3. Insulin-dependent type 2 diabetes mellitus. Continue basal bolus insulin. Consistent carbohydrate diet. Followup fingersticks. 4. Asthma. Continue inhalers as prescribed. Nebulizer treatment as needed. 5. Coronary arterial disease. Continue aspirin, Plavix, statin. Continue blood pressure medication. Adjust as needed. 6. Peripheral vascular disease. Continue aspirin and Plavix. The patient has a history of bilateral above-knee amputations. Supportive care. 7. History of congestive heart failure (CHF), compensated. Strict intake and output. Daily weight. Adjust diuretics as needed. Continue current medications. Followup electrolytes. 8. Deep venous thrombosis (DVT) prophylaxis. Heparin subcutaneous. DISPOSITION: Pending clinical improvement, infectious disease recommendations, and cultures.
[2016-11-20 06:00] VITALS: BP 126/72
[2016-11-20] MEDS: HumaLOG INSULIN (NovoLOG) PER UNIT SC SCH ×4 (08:48→21:00)
[2016-11-20] MEDS: TORSEMIDE 100 MG TAB PO SCH (08:48)
[2016-11-20] MEDS: FEBUXOSTAT 40 MG TABLET (ULORIC) PO SCH (08:48)
[2016-11-20] MEDS: SENOKOT S TAB PO SCH ×2 (08:49→20:51)
[2016-11-20] MEDS: ASPIRIN 81 MG ENTERIC TAB PO SCH (08:49)
[2016-11-20] MEDS: LEVEMIR (INSULIN DETEMIR) 1 UNITS/0.01ML SC SCH (08:51)
[2016-11-20] MEDS ORDERED: diphenhydrAMINE 50 MG CAP PO PRN (09:15)
[2016-11-20] MEDS: hydrOXYzine 10 MG TAB PO PRN (10:43)
[2016-11-20] MEDS: HEPARIN SOD (PORCINE) 5000 UNITS/ML VIAL SC SCH ×2 (10:45→21:00)
[2016-11-20 14:00] VITALS: BP 136/75
--- NOTE | 2016-11-20 14:18 | IPN ---
DATE OF VISIT: 11/20/2016 SUBJECTIVE: Patient seen and examined in the room today. Patient continued to experience itching and burning sensation from her skin lesions. Per patient the lesions started from her bilateral knuckles and rapidly progressed to the majority of her distal upper extremities. There is some skin lesions starting to form on the bottom of the right stump. They cannot recall any new medication changes or new dietary changes. The patient never had any similar rash in the past. Denies any fevers or chills. For the past week, the patient was seen by different providers and the patient has used topical steroids and a few days of over the counter antibiotic cream. All of that intervention has not been helping her. OBJECTIVE: VITAL SIGNS: Temperature 97.5, pulse 60, respirations 18, blood pressure 126/72 , pulse oximetry 94% in room air. GENERAL: Mild distress secondary to persistent skin itchiness. Alert and oriented time three. HEENT: Normocephalic, atraumatic. Extraocular motors grossly intact. CARDIOVASCULAR: Positive S1 and S2, regular rate. LUNGS: Distant heart sounds. No wheezes or rhonchi. ABDOMEN: Soft, obese and nontender. EXTREMITIES: Bilateral upper extremities have skin maceration covered with scattered crusting. No active drainage can be appreciated. No active bleeding. The lesions are erythematous and a majority of the lesions are distal to the bilateral elbows. There is some small areas of similar lesions involving the right posterior stump. Patient had a bilateral above the knee amputations. MUCOSAL: No similar lesions noticed on oral mucosa. LABORATORY DATA: WBC 9.1, hemoglobin 14.6, hematocrit 45.3, platelet count 186. Sodium 130, potassium 4.1, chloride 92, carbon dioxide 31, BUN 80, creatinine 2.44, GFR is 21.7, fasting glucose 143, calcium 8.3, C-reactive protein is 2.6. ASSESSMENT/PLAN: 1. Bilateral skin erythematous lesions. Cultures obtained. Will prophylactically start the patient on Teflaro and will consult infectious disease specialist. Patient may possibly need a skin biopsy. At this moment we do not have a broadband installer supporting our facility. 2. Acute on chronic kidney disease. Baseline creatinine is around 1.8, which was done on October 01, 2016. Patient has a history of using Bactrim, which may contribute to the patient's acute on chronic kidney injury. I will continue to monitor the patient. If the patient is not improving, we may consider consult industry consultant. Patient has type 2 diabetes on sliding scale, consistent carbohydrate diet. 3. Asthma. Currently does not have exacerbation. Continue breathing treatments as needed. 4. History of coronary artery disease status post coronary artery bypass grafting (CABG). Patient on aspirin, Plavix and statin. 5. Peripheral arterial disease. Patient has bilateral above knee amputations. Patient on aspirin and Plavix. 6. History of congestive heart failure (CHF) with preserved EF. Monitor input and output and daily weights. 7. Deep vein thrombosis (DVT) prophylaxis on heparin. MTDD
--- NOTE | 2016-11-20 16:07 | REP ---
Procedure: PICC line insertion with [place] The procedure was performed under the direct supervision of Dr. Brock. The risks and benefits of the procedure were explained and informed consent was obtained by the health care proxy. The right brachial vein was localized using ultrasound guidance. The skin was prepped and draped in a sterile fashion. 2% lidocaine was used as a local anesthetic. Using ultrasound guidance the brachial vein was cannulated and a 0.018 guidewire was inserted and advanced to the SVC using fluoroscopic guidance. The needle was removed and a 4.5 Niuean dilator and peel-away sheath was inserted over the guide wire. A 4.5 Niuean single lumen catheter was cut to length of 39 cm. The dilator was removed and the catheter was inserted over the guide wire with the tip ending in the SVC. The peel-away sheath was removed and the catheter was flushed with heparinized saline as per Hospital protocol. The catheter was affixed to the skin and a sterile dressing was applied. The the patient tolerated the procedure well and there were no immediate complications. 0.2 minutes of fluoro time was utilized for this procedure. Reviewed by OLAF Moreno 11/20/2016 03:38 PSigned by Hira Brock MD 11/20/2016 03:59 P
[2016-11-20] MEDS: POLYVINYL ALCOHOL OPHTH SOLN 15 ML(LIQUITEARS) OU PRN (16:43)
[2016-11-20] MEDS ORDERED: TORSEMIDE (DEMADEX) 50 MG PER 1/2 TAB PO SCH (17:00)
[2016-11-20] MEDS: diphenhydrAMINE CREAM 30GM TOP PRN (17:32)
[2016-11-20] MEDS: SODIUM CHLORIDE 0.9% INJ 10 ML SYR IV SCH (17:32)
[2016-11-20 18:04] LABS: MEAN CORPUSCULAR HEMOGLOBIN 31.4 pg (27.0-33.0); MEAN CORPUSCULAR HGB CONC 33.1 g/dl (32.0-36.5); MEAN CORPUSCULAR VOLUME 94.9 fl (80.0-96.0); RED CELL DISTRIBUTION WIDTH 15.4 % (11.5-14.5); WHITE BLOOD COUNT 8.2 K/mm3 (4.0-10.0)
[2016-11-20 19:04] LABS: CALCIUM LEVEL 8.7 MG/DL (8.5-10.1); CREATININE FOR GFR 2.56 MG/DL (0.55-1.02); GLOMERULAR FILTRATION RATE 20.5 (>51); MAGNESIUM LEVEL 1.8 MG/DL (1.8-2.4); POTASSIUM SERUM 3.8 MEQ/L (3.5-5.1)
[2016-11-20] MEDS: diphenhydrAMINE 50 MG CAP PO PRN (19:50)
[2016-11-20 22:00] VITALS: BP 121/81
[2016-11-21] MEDS: IPRATROPIUM 0.5MG/ALBUTEROL 2.5MG INH SOL UD 3ML (DUONEB)(J7620) NEB SCH ×4 (01:13→19:40)
[2016-11-21] MEDS: CEFTAROLINE FOSAMIL 200 MG in D5W 50 ML IV SCH ×2 (02:25→14:34)
[2016-11-21] MEDS: SODIUM CHLORIDE 0.9% INJ 10 ML SYR IV SCH ×2 (02:26→18:02)
[2016-11-21] MEDS: SODIUM CHLORIDE 0.9% INJ 10 ML SYR IV PRN ×3 (04:17→10:58)
[2016-11-21] MEDS: ONDANSETRON 4MG/2ML VIAL (J2405) IV PRN ×4 (04:17→23:44)
[2016-11-21 04:51] LABS: MEAN CORPUSCULAR HEMOGLOBIN 31.5 pg (27.0-33.0); MEAN CORPUSCULAR HGB CONC 33.1 g/dl (32.0-36.5); MEAN CORPUSCULAR VOLUME 95.1 fl (80.0-96.0); RED CELL DISTRIBUTION WIDTH 15.2 % (11.5-14.5); WHITE BLOOD COUNT 10.8 K/mm3 (4.0-10.0)
[2016-11-21 05:05] LABS: CALCIUM LEVEL 9.4 MG/DL (8.5-10.1); CREATININE FOR GFR 2.58 MG/DL (0.55-1.02); GLOMERULAR FILTRATION RATE 20.3 (>51); MAGNESIUM LEVEL 1.8 MG/DL (1.8-2.4); POTASSIUM SERUM 3.9 MEQ/L (3.5-5.1)
[2016-11-21 06:00] VITALS: BP 157/72
[2016-11-21] MEDS: diphenhydrAMINE 50 MG CAP PO PRN ×3 (09:18→21:06)
[2016-11-21] MEDS: HumaLOG INSULIN (NovoLOG) PER UNIT SC SCH ×4 (09:20→21:01)
[2016-11-21] MEDS ORDERED: LIDOCAINE W/EPINEPHRINE 1% 20ML VIAL SC ONE (09:30)
[2016-11-21] MEDS: LEVEMIR (INSULIN DETEMIR) 1 UNITS/0.01ML SC SCH (10:20)
[2016-11-21] MEDS: FEBUXOSTAT 40 MG TABLET (ULORIC) PO SCH (10:33)
[2016-11-21] MEDS: OMEPRAZOLE 20 MG CAP PO SCH ×2 (10:38→21:23)
[2016-11-21] MEDS: METOPROLOL TARTRATE 100 MG TAB PO SCH ×2 (10:39→21:00)
[2016-11-21] MEDS: TORSEMIDE 100 MG TAB PO SCH (10:40)
[2016-11-21] MEDS: SENOKOT S TAB PO SCH ×2 (10:40→21:24)
[2016-11-21] MEDS: SPIRONOLACTONE 25 MG TAB PO SCH ×2 (10:40→21:00)
[2016-11-21] MEDS: ASPIRIN 81 MG ENTERIC TAB PO SCH (10:40)
[2016-11-21] MEDS: PANTOPRAZOLE 40MG TAB (PROTONIX) PO SCH ×2 (10:40→21:23)
[2016-11-21] MEDS: HEPARIN SOD (PORCINE) 5000 UNITS/ML VIAL SC SCH ×2 (10:41→21:23)
[2016-11-21] MEDS: ACETAMINOPHEN TAB 650MG DOSE (2X325MG) PO PRN ×2 (10:42→21:06)
[2016-11-21] MEDS: BRIMONIDINE 0.15% OPHTH SOLN 5 ML OD SCH ×2 (10:43→21:24)
[2016-11-21] MEDS: TIMOLOL MALEATE 0.5% OPHTH SOLN 5 ML OD SCH ×2 (10:44→21:24)
[2016-11-21] MEDS: MUPIROCIN 2% CREAM 30GM TOP SCH ×2 (10:57→21:24)
--- NOTE | 2016-11-21 13:30 | IPN ---
DATE: 11/21/2016 SUBJECTIVE: The patient is seen and examined in the room today. For the past 24 hours, the patient has been complaining about severe pruritus where the patient has a rash. Benadryl cream and oral Benadryl only provides some limited relief. The patient also feels that the area of the erythema has been progressing. Continues to experience burning type of pain from where she had the rash. OBJECTIVE: VITAL SIGNS: Temperature is 98, pulse is 84, respirations 20, blood pressure is 157/72, pulse oximetry is 93% in room air. GENERAL: Mild to moderate distress secondary to persistent pain and persistent skin pruritus. Alert and oriented time three. HEENT: Normocephalic, atraumatic. Extraocular motors grossly intact. CARDIOVASCULAR: Positive S1 and S2, regular rate. LUNGS: Distant lung sounds. No wheezes or rhonchi. ABDOMEN: Morbidly obese. Soft and nontender. EXTREMITIES: Bilateral upper extremities have erythematous rash with skin maceration covered with dark colored crust. Similar lesion also noted on the bilateral stump. The patient has bilateral above the knee amputations. MUCOSAL: No lesions noticed on oral mucosa. LABORATORY DATA: WBC 10.8, hemoglobin 14.3, hematocrit 43, platelet count is 202. Sodium is 127, potassium 3.9, chloride 91, carbon dioxide 29, BUN 86, creatinine 2.58, GFR is 20.3, fasting glucose is 97, calcium 9.4, magnesium 1.8, LDH is 339 , total CK is 134, C-reactive protein 3.44. Blood cultures showed no growth after 24 hours. ASSESSMENT/PLAN: 1. Bilateral skin erythematous lesions, mainly on the bilateral forearms. Now starting to develop in the bilateral lower extremity stump. The patient is empirically started on Teflaro. We will consult infectious disease specialist. General surgeon, Dr. Johnston, also has been consulted for skin biopsy and punch biopsy will be performed today. If the patient continues to have rapid progression, we may consider transferring the patient to have another facility with dermatological support. 2. Acute on chronic kidney disease. CKD stage 4. Continue to monitor. The patient has a history of using Bactrim. 3. Asthma. Currently does not have exacerbation. Continue breathing treatments as needed. 4. History of coronary artery disease status post coronary artery bypass grafting (CABG). Patient on aspirin, Plavix and statin. 5. Peripheral arterial disease. Patient has bilateral above knee amputations. Patient on aspirin and Plavix. 6. History of congestive heart failure (CHF). No sign of exacerbation at this moment. Continue to monitor input and output and daily weights. 7. Type 2 diabetes. The patient is on sliding scale. The patient is on consistent carbohydrate diet. 8. Deep vein thrombosis (DVT) prophylaxis. The patient is on heparin. MTDD
[2016-11-21] MEDS: diphenhydrAMINE CREAM 30GM TOP PRN (14:36)
[2016-11-21] MEDS: XIIDRA 5% OU SCH ×2 (18:00→21:32)
[2016-11-21] MEDS: OPTH OU SCH ×2 (18:00→21:32)
[2016-11-21] MEDS: methylPREDNISolone INJ 125 MG/2 ML VIAL (J2930) IV SCH (18:01)
[2016-11-21] MEDS: hydrOXYzine 10 MG TAB PO PRN (18:02)
[2016-11-21] MEDS: CLOPIDOGREL 75 MG TAB PO SCH (21:23)
[2016-11-21] MEDS: MONTELUKAST 10 MG TAB PO SCH (21:23)
[2016-11-21] MEDS: FLUTICASONE PROP 0.05% NASAL SPRAY 16 GM (FLONASE) SCH (21:24)
--- NOTE | 2016-11-21 21:53 | CR ---
DATE OF CONSULTATION: 11/21/2016 CHIEF COMPLAINT: Painful rash on bilateral upper hands and lower extremity stumps. HISTORY OF PRESENT ILLNESS: The patient is a 56-year-old female with severe coronary artery disease, CHF and diabetes who presented to the ER with a 1-week history of bilateral upper and lower extremity rash that started on her knuckles and has slowly spread up the wrists and the forearms up towards the elbows, it is continuing to spread up towards her shoulders. She has same lesion starting to form on her bilateral lower extremity [id number] amputation stumps as well as on her middle back. She denies any recent medication changes. No recent changes in any environmental, chemicals, or cleaning agents at home. Her , who lives with her, has been with her the entire time and has not shown any signs of this rash as well. She has never had anything like this in the past. It did start off in the hands. Since then it has become very dry and painful. ALLERGIES: MADDY INHIBITORS, KEFLEX, REGLAN, NITROGLYCERIN, PENICILLIN, PREGABALIN, tape. PAST MEDICAL HISTORY: Coronary artery disease, peripheral vascular disease, type 2 diabetes, renal insufficiency. SURGERIES: Coronary artery bypass graft (CABG), AICD insertion, section, umbilical hernia, above-knee amputation bilaterally, cataract surgery. FAMILY HISTORY: Noncontributory. SOCIAL HISTORY: Denies any drug, alcohol, tobacco usage. REVIEW OF SYSTEMS: Pertinent positive and negatives as stated in the HPI. HOME MEDICATIONSs: Please see medical record. PHYSICAL EXAMINATION: GENERAL: Alert and oriented times three. No acute distress. VITAL SIGNS: Temperature 98, pulse 84, respirations 20, blood pressure 157/72, pulse oximetry 93% on room air. HEENT: Pupils equally round and reactive to light and accommodation. HEART: S1, S2, regular rate and rhythm. LUNGS: Clear to auscultation bilaterally. ABDOMEN: Soft, nontender, nondistended. EXTREMITIES: No signs of edema. SKIN: She does have a maculopapular rash extending from the hands all the way up above the elbows on both sides. She also has a very small early rash on the right posterior back and on both the left and right anterior thighs. The rash starts off reddish and then turns into dry skin with some superficial bleeding and some excoriation with black eschars on top. No signs of any infection with purulent drainage. No signs of any bulla formation. LABORATORY DATA: White count 10.8, hemoglobin 14.3, platelets 202, sodium 127, potassium 3.9, creatinine 2.58, magnesium 1.8. ASSESSMENT/PLAN: Patient is a 56-year-old female with signs and symptoms consistent with bilateral upper and lower extremity cellulitis likely secondary to a contact dermatitis versus an environmental or medication reaction. There is no obvious signs based on her history. However, recommendation is to continue with skin biopsy to help with diagnosis. Recommendation is to do just a punch biopsy at the bedside. Risks and benefits of procedure not limited but including bleeding, infection, need for further procedure is discussed in detail with the patient and the patient's and consent was signed by the patient's . Procedure was completed at the bedside. We will wait for pathology results and also wait for infectious disease consult for further recommendations.
[2016-11-21] MEDS: SODIUM CHLORIDE NASAL 0.65% SPRAY BTL (OCEAN) PRN (23:16)
[2016-11-21] MEDS ORDERED: EXCEDRIN MIGRAINE TABLET PO PRN (23:30)
[2016-11-22] MEDS ORDERED: SUMAtriptan SUCCINATE 25 MG TAB PO ONE (01:15)
[2016-11-22] MEDS: methylPREDNISolone INJ 125 MG/2 ML VIAL (J2930) IV SCH ×3 (01:30→16:30)
[2016-11-22] MEDS: IPRATROPIUM 0.5MG/ALBUTEROL 2.5MG INH SOL UD 3ML (DUONEB)(J7620) NEB SCH ×4 (01:51→19:22)
[2016-11-22] MEDS: SODIUM CHLORIDE 0.9% INJ 10 ML SYR IV SCH ×2 (05:40→16:31)
[2016-11-22 05:52] LABS: MEAN CORPUSCULAR HEMOGLOBIN 31.5 pg (27.0-33.0); MEAN CORPUSCULAR HGB CONC 32.3 g/dl (32.0-36.5); MEAN CORPUSCULAR VOLUME 97.5 fl (80.0-96.0); RED CELL DISTRIBUTION WIDTH 15.1 % (11.5-14.5); WHITE BLOOD COUNT 10.1 K/mm3 (4.0-10.0)
[2016-11-22 06:00] VITALS: BP 158/72
[2016-11-22 06:16] LABS: ALBUMIN/GLOBULIN RATIO 1.25 (1.00-1.93); BILIRUBIN,TOTAL 1.7 MG/DL (0.2-1.0); CALCIUM LEVEL 9.1 MG/DL (8.5-10.1); CREATININE FOR GFR 3.31 MG/DL (0.55-1.02); GLOMERULAR FILTRATION RATE 15.2 (>51); POTASSIUM SERUM 4.9 MEQ/L (3.5-5.1); TOTAL PROTEIN 5.4 GM/DL (6.4-8.2)
[2016-11-22] MEDS: FEBUXOSTAT 40 MG TABLET (ULORIC) PO SCH (09:54)
[2016-11-22] MEDS: HumaLOG INSULIN (NovoLOG) PER UNIT SC SCH ×4 (09:54→21:00)
[2016-11-22] MEDS: PANTOPRAZOLE 40MG TAB (PROTONIX) PO SCH ×3 (09:55→21:15)
[2016-11-22] MEDS: hydrOXYzine 10 MG TAB PO PRN (09:55)
[2016-11-22] MEDS: ASPIRIN 81 MG ENTERIC TAB PO SCH (09:55)
[2016-11-22] MEDS: ACETAMINOPHEN TAB 650MG DOSE (2X325MG) PO PRN ×3 (09:55→21:16)
[2016-11-22 09:56] VITALS: BP 158/72
[2016-11-22] MEDS: LEVEMIR (INSULIN DETEMIR) 1 UNITS/0.01ML SC SCH (09:56)
[2016-11-22] MEDS: SODIUM CHLORIDE 0.9% INJ 10 ML SYR IV PRN ×2 (09:56→21:48)
[2016-11-22] MEDS: SENOKOT S TAB PO SCH ×3 (09:56→21:14)
[2016-11-22] MEDS: METOPROLOL TARTRATE 100 MG TAB PO SCH ×3 (09:56→21:20)
[2016-11-22] MEDS: SPIRONOLACTONE 25 MG TAB PO SCH (09:56)
[2016-11-22] MEDS: POLYVINYL ALCOHOL OPHTH SOLN 15 ML(LIQUITEARS) OU PRN ×2 (09:57→21:17)
[2016-11-22] MEDS: TIMOLOL MALEATE 0.5% OPHTH SOLN 5 ML OD SCH ×2 (09:57→21:17)
[2016-11-22] MEDS: OPTH OU SCH ×2 (09:57→21:19)
[2016-11-22] MEDS: XIIDRA 5% OU SCH ×2 (09:57→21:19)
[2016-11-22] MEDS: BRIMONIDINE 0.15% OPHTH SOLN 5 ML OD SCH ×2 (09:58→21:17)
[2016-11-22] MEDS: SODIUM CHLORIDE NASAL 0.65% SPRAY BTL (OCEAN) PRN (09:58)
[2016-11-22] MEDS: OMEPRAZOLE 20 MG CAP PO SCH ×3 (09:59→21:15)
[2016-11-22] MEDS: HEPARIN SOD (PORCINE) 5000 UNITS/ML VIAL SC SCH ×2 (09:59→21:00)
[2016-11-22] MEDS: MUPIROCIN 2% CREAM 30GM TOP SCH ×2 (09:59→21:19)
[2016-11-22] MEDS ORDERED: SODIUM CHLORIDE 0.9% 1000 ML IV ONE (12:15)
[2016-11-22] MEDS: diphenhydrAMINE 50 MG CAP PO PRN ×2 (12:44→21:14)
[2016-11-22] MEDS: ONDANSETRON 4MG/2ML VIAL (J2405) IV PRN ×2 (12:44→21:21)
[2016-11-22 13:42] LABS: COMPLEMENT C3 57.3 MG/DL (90-180); COMPLEMENT C4 20.2 MG/DL (10-40); URIC ACID 3.5 MG/DL (2.6-6.0)
--- NOTE | 2016-11-22 14:45 | CR ---
DATE OF CONSULTATION: 11/22/2016 REQUESTING PHYSICIAN: Dr. Radha Kline CONSULTING PHYSICIAN: Dr. Velasco REASON FOR CONSULTATION: Management of acute kidney injury superimposed on chronic kidney disease and a skin rash. CHIEF COMPLAINT: Patient was admitted on 11/19/2016 for painful skin rash in bilateral upper extremities and stumps at the lower extremities. HISTORY OF PRESENT ILLNESS: Janet Siddiqui is a 56-year-old female with a past medical history of chronic kidney disease stage IV, history of congestive heart failure (CHF), bilateral above knee amputations and multiple other comorbidities as mentioned below. She presented to the hospital on 11/19/2016 because of bilateral upper extremity rash that was centripetal in nature. It started on the hands and progressively moved to the arms. The patient had a similar rash on the stumps of the bilateral lower extremity amputation sites. It was progressively getting worse and her skin was peeling off. It was burning and painful in nature. Primary team is treating it as vasculitis at this time. The patient had a creatinine of 2.4 on admission, which has bumped up to 3.3 at this time. The nephrology service was called for further help in the management of acute kidney injury superimposed on chronic kidney disease stage IV and possible association of the skin rash with renal disease. PAST MEDICAL HISTORY: The patient has a past medical history of chronic kidney disease stage IV. Best baseline creatinine as per our records in the hospital is around 1.8. She has peripheral vascular disease with bilateral above knee amputations, coronary artery disease, and mitral valve repair, diabetes mellitus type 2, congestive heart failure (CHF), status post AICD placement and morbid obesity. PAST SURGICAL HISTORY: Coronary artery bypass grafting in 2007, status post AICD placement in 2008, history of section, history of umbilical hernia repair, status post bilateral above the knee amputations and history of cataract surgeries in the past. ALLERGIES: The patient is allergic to MADDY INHIBITORS, CEPHALEXIN, METOCLOPRAMIDE, NITROGLYCERIN, PENICILLIN, LYRICA and TAPE. FAMILY HISTORY: No significant family history of end stage renal disease requiring hemodialysis. SOCIAL HISTORY: The patient lives with her who is actively involved in taking care of the patient. She denies any smoking, drug abuse, or alcohol abuse. HOME MEDICATIONS: The patient's home medications include: - Tylenol - albuterol - Ventolin - aspirin - Alphagan eye drops - Plavix 75 mg daily - Colace - Uloric 80 mg daily - Novolin - magnesium 400 mg twice a day - metolazone 2.5 mg by mouth on Mondays - metoprolol 100 mg twice a day - minocycline 50 mg twice a day - Singulair 10 mg in the evening - omeprazole 20 mg twice a day - Protonix 40 mg by mouth twice a day - potassium chloride 15 mL daily - spironolactone 25 mg by mouth twice a day - timolol eye drops - torsemide 100 mg in the morning and 50 mg in the evening - Toujeo 30 units subcutaneous daily - Bactrim twice a day REVIEW OF SYSTEMS: CONSTITUTIONAL: The patient denies any fever, chills or rigors. EYES: She denies any recent change in vision but reports decreased vision at baseline. ENT: She denies any dysphagia or odynophagia. No ear discharge, but she reports a rash in the nose as well. CARDIOVASCULAR: She reports a history of congestive heart failure (CHF) but she denies any palpitations or shortness of breath at this time. RESPIRATORY: She denies any cough, wheezing or shortness of breath. GASTROINTESTINAL: She denies any constipation or diarrhea, but she reports decreased appetite. GENITOURINARY: She denies any dysuria or hematuria. MUSCULOSKELETAL: The patient reports bilateral above knee amputations and inability to ambulate. SKIN: The patient reports central centripetal rash that is in bilateral hands, forearms, and stumps of the lower extremities. PSYCHIATRIC: The patient reports that she is depressed at this time. CENTRAL NERVOUS SYSTEM (HIGH SCHOOL BAND DIRECTOR): No history of strokes or seizures. HEMATOLOGIC/ONCOLOGIC: The patient denies any easy bruising or bleeding at this time. All other review of systems negative. PHYSICAL EXAMINATION: GENERAL: The patient is drowsy and sleepy, but she is oriented times three. Slightly agitated, lying in the bed. VITAL SIGNS: Temperature is 96.8 degrees Fahrenheit, blood pressure is 158/72, pulse is 77, respiratory rate of 18, saturating 90% on room air. Intake and output: Urine output recorded as 1200 mL yesterday and no urine output recorded so far today since overnight. Weight on the bed scale is 88.9 kg. HEAD AND NECK EXAM: Pupils are equal, round and reactive to light. Very decreased vision in bilateral eyes. The patient has a small crusted lesion on the right nasal cavity. Mucous membranes are moist. Neck is supple. There is no jugular venous distention (JVD). CARDIOVASCULAR: S1, S2. Regular rate. No murmur, rub or gallop. RESPIRATORY: Chest is clear to auscultation bilaterally. Bilateral equal air entry. No rales or rhonchi. ABDOMEN: Soft, obese. Positive bowel sounds. Old abdominal surgical scar. Otherwise, no ascites or organomegaly. MUSCULOSKELETAL: The patient has bilateral above knee amputations. The patient has a rash in the bilateral upper extremities and lower extremities. CENTRAL NERVOUS SYSTEM (HIGH SCHOOL BAND DIRECTOR): No focal deficits at this time. Power is 5/5 in bilateral upper extremities. SKIN: The patient has erythematous, tender rash with ulcerations in bilateral hands and dorsum of her arms, going all the way up to the upper arms, and she also has small areas of rash in the stumps of the bilateral lower extremities as well. PSYCHIATRIC: The patient is agitated and has a depressed mood. LYMPH NODES: No significant cervical, axillary or inguinal lymphadenopathy. LABORATORY REVIEW: CBC showed a WBC of 10.1, hemoglobin 15.3, platelets of 161. Urinalysis on 11/20/2016 was negative for protein. There was no blood. BMP today shows sodium 128, potassium 4.9, chloride 90, bicarbonate is 22, BUN 84, creatinine is 3.3, GFR is 15, albumin is 3. Autoimmune serology is pending. Microbiology, respiratory and viral panel negative. CURRENT INPATIENT MEDICATIONS: The patient's medications were all reviewed by me. She is currently on: - Tylenol - Excedrin - albuterol as needed - artificial tears - aspirin - Plavix - Benadryl - Colace - She was on Uloric 80 mg daily, which has been stopped. - Glucagon - heparin subcutaneously - Atarax - Levemir insulin - Lispro insulin - Solu-Medrol 80 mg IV every 8 hours - metoprolol 100 mg by mouth twice a day - Singulair - bolus of 250 mL of normal saline - Zofran - Protonix - spironolactone was stopped by me this morning - torsemide was stopped yesterday ASSESSMENT: 56-year-old female with a past medical history of chronic kidney disease stage IV, congestive heart failure (CHF), coronary artery disease, peripheral vascular disease, status post bilateral above knee amputations, diabetes, asthma, admitted this time because of centripetal rash. Nephrology service following the patient for worsening of chronic kidney disease stage IV. PLAN: 1. Acute kidney injury superimposed on chronic kidney disease stage IV. It might be related to dehydration and volume depletion with concurrent use of torsemide and spironolactone. Torsemide was already stopped by the primary team yesterday. I am going to stop the spironolactone as well. We will give the patient a small bolus of 250 mL of normal saline. Continue to monitor intake and output. Because of the patient's bilateral above knee amputations, we are slightly overestimating the patient's renal function. Her GFR at this time is 15 where actually her GFR might be around 10. I discussed this with the patient and her . The patient does not wish to have any dialysis procedure. We shall try to maximize the medication and try to manage the renal failure medically at this time. 2. Centripetal skin rash. The patient got a biopsy of the skin rash done and it was associated with inflammation or vasculitis. There is no evidence of calciphylaxis in the biopsy. The patient has been started on IV Solu-Medrol. I have stopped the Uloric as well, which can sometimes cause skin rash as well. Continue to monitor for improvement. The patient was also on Bactrim at home and tetracycline at home as well, which can cause rash. These medications have been stopped after the patient was admitted to the hospital. 3. History of congestive heart failure (CHF). The patient was on high dose diuretics. They were stopped yesterday because of renal failure. Continue to hold the diuretics at this time. The patient's volume status will be assessed tomorrow morning for any need to restart low dose of diuretics at this time. 4. Diabetes mellitus type 2. Insulin sliding scale and Levemir are as per primary team. 5. History of gout secondary to chronic kidney disease. Uloric has been stopped because of possibility of association with skin rash. If needed in the future, the patient might be given allopurinol at a lower dose. 6. Hypertension. Continue current dose of Lopressor 100 mg by mouth twice a day. Blood pressure is acceptable at this time. Thank you for involving us in the care of this patient. We shall be happy to follow the patient along with you tomorrow morning.
--- NOTE | 2016-11-22 15:20 | IPN ---
DATE: 11/22/2016 SUBJECTIVE: The patient is seen and examined in the room today. The patient is complaining about generalized unwellness. The patient has very poor oral intake. The patient continues to experience a painful burning sensation of her bilateral rashes. Continues to experience pruritus from the lesions, but progression of the suspected area seems to have slowed down, according to the patient's , her caregiver. OBJECTIVE: VITAL SIGNS: Temperature is 96.8, pulse is 77, respirations 20, blood pressure is 158/72, pulse oximetry is 90% in room air. GENERAL: Mild to moderate distress. Alert and oriented time three. HEENT: Normocephalic, atraumatic. Extraocular motors grossly intact. CARDIOVASCULAR: Positive S1 and S2, regular rate. LUNGS: Distant lung sounds. No wheezes or rhonchi. ABDOMEN: Morbidly obese. Soft and nontender. Nondistended. EXTREMITIES: There is erythematous rash with skin maceration covered with dark colored crust. No active discharge or bleeding noted from the lesions. Similar lesion also noted on the right posterior stump. MUCOSAL: There are some minor lesions near the medial side of the right nostril. No oral mucosa involvement. LABORATORY DATA: WBC 10.1, hemoglobin 15.3, hematocrit 47.5, platelet count is 161. Sodium is 128, potassium 4.9, chloride 90, carbon dioxide 22, BUN 84, creatinine 3.31, GFR is 15.2, fasting glucose is 162, calcium 9.1, magnesium 2, total bilirubin is 1.7, direct bilirubin is 1. AST is 179, ALT is 87, alkaline phosphatase is 256. C-reactive protein 3.26. Total protein 5.4, albumin 3. 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 ASSESSMENT/PLAN: 1. Bilateral skin erythematous lesions. There is a suspicion that the patient may have vasculitis versus drug induced skin reaction. The patient's medications were reviewed. Several types of medications were removed. The patient is started on prednisone. 2. Acute on chronic kidney failure, history of using Bactrim. At baseline, the patient has creatinine of 1.8 on 08/01/2016. Currently, the patient has decreased GFR. Nephrology is consulted. The patient may be in end stage renal disease currently. Option for hemodialysis offered to the patient but the patient refused. Still looking for other reversible causes causing the patient's renal failure. The patient is off the diuretic at this moment. 3. Asthma. No exacerbation. 4. History of coronary artery disease status post coronary artery bypass grafting (CABG). On aspirin, Plavix and statin. 5. Peripheral arterial disease. Patient has bilateral above knee amputations. Patient on aspirin and Plavix. 6. History of congestive heart failure (CHF). Currently due to renal failure and poor oral intake and possible drug allergies. The patient's diuretic has been on hold. Would appreciate nephrology's assistance in the patient's fluid status management. 7. Type 2 diabetes. On sliding scale. The patient is on consistent carbohydrate diet. 8. Deep vein thrombosis (DVT) prophylaxis. On heparin.
[2016-11-22] MEDS ORDERED: VANCOMYCIN HCL 1,000 MG, VIAL MATE ADAPTER 1 EACH in D5W 250 ML IV ONE (16:00)
--- NOTE | 2016-11-22 16:48 | PHACANCOPD ---
PHARMACY VANCOMYCIN DOSING Pt Demographics Demographics Patient Age:56 , Weight:88.900 , Gender: female Adjusted Body Weight Date: 11/22/16, Adjusted Body Weight: [67] Kg Events Past 24 Hours Events Past 24 Hours: YES: Change in CrCl, NO: Dialysis, Diuretic Therapy, Fever, Elevation in WBC, Pending Diagnostics , Pending Procedures, Other Vancomycin Vancomycin indication: skin infection Vancomycin Target Ranges: 15-20 mcg/ml Vancomycin Load Y/N: No Load Dose Date Time Vancomycin Load Dose: Date: Time: Vancomycin Dose Date: 11/23/16. Current Vancomycin Dose: [1g IV q24h @09] Date: 11/22/16. Current Vancomycin Dose: [1g @16] Intermittent Dosing?: No Labs Labs Item Value Date Time White Blood Count 10.8 K/mm3 H 11/21/16 0433 White Blood Count 10.1 K/mm3 H 11/22/16 0532 Creatinine 2.56 MG/DL H 11/20/16 1743 Creatinine 2.58 MG/DL H 11/21/16 0433 Creatinine 3.31 MG/DL H 11/22/16 0532 C-Reactive Protein, Quantitative 3.44 MG/DL H 11/21/16 0433 C-Reactive Protein, Quantitative 3.26 MG/DL H 11/22/16 0532 Micro Microbiology 11/19/16 Blood Culture - Preliminary, Resulted No Growth after 48 hours. All Specime... 11/19/16 Blood Culture - Preliminary, Resulted No Growth after 48 hours. All Specime... 11/21/16 Respiratory Virus Panel (PCR) (YAKOV) - Final, Complete 11/20/16 Wound Culture - Final, Complete Staphylococcus Sp Coag Neg Enterococcus Faecalis Creatinine Clearance Date:11/22/16. Creatinine Clearance: [~20 ml/min using adjusted BW]. Pending Labs Random vancomycin level scheduled 11/24 @06:00 Assessment and Plan Maintaining Current Dose?: Yes Reason for dose change: No Dose Change Pharmacist Note Pharmacist Note Date: 11/22/16. Pharmacist note: pt was admitted 11/19 for cellulitis, she was previously on bactrim as an outpatient. She was on Ceftaroline 200mg IV q12h x 3 doses 11/20-11/21. Wound culture is positive for staph coag neg and E. faecalis (heavy, YAKOV = 1). Baseline SCr is ~1.8, diuretics have been stopped until SCr improves. She has not been on vancomycin at our facility in the past. She received vancomycin IV 1g this afternoon, I will tentatively keep her on q24h dosing for now. I have a random vancomycin level scheduled in the morning before the 3rd dose. I will continue to monitor and make adjustments as necessary. Randy Mendez Pharm.D. Nov 22, 2016 16:48
[2016-11-22 18:43] LABS: PERCENT SATURATION 93.1 % (13.2-37.4)
[2016-11-22] MEDS: MONTELUKAST 10 MG TAB PO SCH ×2 (21:00→21:15)
[2016-11-22] MEDS: CLOPIDOGREL 75 MG TAB PO SCH ×2 (21:00→21:14)
[2016-11-22] MEDS: TRIAMCINOLONE ACET 0.1% OINTMENT 15 GM EXT SCH (21:16)
[2016-11-22] MEDS: FLUTICASONE PROP 0.05% NASAL SPRAY 16 GM (FLONASE) SCH (21:17)
[2016-11-22] MEDS ORDERED: valACYclovir HCL 500 MG TAB PO ONE (21:30)
[2016-11-23] VITALS (18 sets, daily range): BP systolic 79–129; BP diastolic 44–87
[2016-11-23] MEDS: methylPREDNISolone INJ 125 MG/2 ML VIAL (J2930) IV SCH ×2 (01:00→12:30)
[2016-11-23] MEDS: IPRATROPIUM 0.5MG/ALBUTEROL 2.5MG INH SOL UD 3ML (DUONEB)(J7620) NEB SCH ×3 (01:54→13:49)
--- NOTE | 2016-11-23 04:48 | CR ---
DATE OF CONSULTATION: 11/21/2016 I was asked to consult by hospitalist for evaluation of a painful rash mostly involving the arms and stumps. HISTORY OF PRESENT ILLNESS: Janet is a 56-year-old female with a complicated past medical history including bilateral above-knee amputation, coronary artery disease, renal insufficiency, and diabetes. The patient presented with 1 week of worsening rash involving upper extremities that started on both hands then extended to the elbows and now has developed on her stumps and thighs with significant pain. The patient stated that initially it started with a rash about 4 weeks ago that was more pustular on her back for which she was seen by her primary care provider and was given Bactrim for 10-14 days. The patient finished that prescription. About a week later she developed a rash on her upper extremities which was severely painful. She was given another prescription for Bactrim. She took only one tablet, but then came to the emergency room. She stated that she also had been in the sun and the states that she was more burnett than usual. She had no fever or chills. She has nausea and no appetite. No vomiting or diarrhea. The patient's eyes are red on the left more than right, but she also has severe exophthalmus and the states that this is nothing new. She has also lesions in her nose. She has no history of methicillin-resistant Staphylococcus aureus (MRSA). PAST MEDICAL HISTORY: Includes: 1. Coronary artery disease with stents. 2. Mitral valve repair. 3. Coronary artery bypass graft (CABG). 4. Congestive heart failure. 5. Peripheral vascular disease with bilateral above-knee amputation. 6. Type 2 diabetes. 7. Chronic kidney disease. 8. Automatic implantable cardioverter-defibrillator (AICD) placement. 9. Obesity. 10. She is non-ambulatory, does not have prostheses. 11. Gout. 12. Glaucoma. 13. Gastroesophageal reflux disease. PAST SURGICAL HISTORY: 1. CABG in 2007. 2. AICD 2008. 3. section. 4. Umbilical hernia. 5. Bilateral above-knee amputation. 6. Cataract surgery. FAMILY HISTORY: Nonrevealing. SOCIAL HISTORY: She lives with her , who is her caregiver. She denies smoking, alcohol use or drug use. REVIEW OF SYSTEMS: She has no nausea, no appetite. No vomiting or diarrhea. She does complain of upper extremity pain and rashes, now the rash is on her stumps and is severely painful and she is not able to sit on the posterior aspect of this side. She denies any chest pain or shortness of breath. No vomiting or diarrhea and no fever or chills or night sweats. ALLERGIES: ANGIOTENSIN-CONVERTING ENZYME (MADDY) INHIBITORS, KEFLEX, REGLAN, NITROGLYCERIN, PENICILLIN causes a rash, PREGABALIN, TAPE. She denies a sulfa allergy. MEDICATIONS: - Excedrin one by mouth every six as needed - heparin flushes - ceftaroline 200 mg IV every 12 hours - Tylenol 650 mg by mouth every 4 hours - Zofran as needed - mupirocin both hands and stumps - lispro sliding scale - Plavix 75 mg by mouth nightly - Alphagan eye drops - fluticasone one spray nose nightly - metoprolol 100 mg by mouth twice a day - montelukast 10 mg by mouth daily - omeprazole 20 mg by mouth twice a day - Protonix 40 mg by mouth twice a day - aldactone 25 mg by mouth twice a day - timolol one drop both eyes twice a day - aspirin 81 mg by mouth daily - Uloric 80 mg by mouth daily - Senokot as needed PHYSICAL EXAMINATION: She is a pleasant female in moderate discomfort. Heart: Normal S1, S2. No murmurs appreciated. Lungs: Diminished breath sounds, but clear. Abdomen: Morbidly obese, soft, nontender. There are some hyperpigmented changes with some ecchymosis on the lower abdomen. Back: No costovertebral angle (CVA) or lumbosacral tenderness. Extremities: She has bilateral high above-knee amputation stumps. There are lesions on the bottom of this stump that are vasculitic in nature, some on the posterior aspect of the thigh, most lesions are less than 1/2 cm in size, some are scabbed, some are still erythematous. There are multiple lesions that are vasculitic from the fingers all the way to the elbow. The left elbow has some excoriation with mild yellowish discharge. Right arm has also seen vasculitic lesions, tender to touch, extremely painful. Nose has multiple lesions as well. Oropharynx, she has atrophic glossitis, but no obvious lesions seen. Left eye is erythematous with exophthalmus. Right eye is not erythematous. Temperature is 98, pulse 84, respirations 20, blood pressure 157/72, oxygen saturation 93% on room air. LABORATORY DATA: White count was 10.8, hemoglobin 14.3, hematocrit 43, platelets 202. ESR done on admission was 3. Sodium 127, potassium 3.9, chloride 91, bicarbonate 29, BUN 86, creatinine 2.58, which is an increase, worsening kidney function, glucose 97, calcium 9.4, magnesium 1.8, LDH 339, CPK 134 and CRP 3.44. Aldolase was added and is pending. HIV ordered was pending. IMAGING STUDIES: PICC line was placed on 11/20. No imaging study was done. A biopsy was done by Dr. Johnston, the pathology is pending. IMPRESSION: This is a 56-year-old female with multiple past medical history with complicated past medical history including coronary artery disease, chronic kidney disease, hypertension and gout, who has congestive heart failure, who presents with a 1-week history of a very painful rash vasculitic in nature involving the arms and legs, mostly on the stumps. The patient has recently received a course of Bactrim for what was described as a pustular rash on her back. She also seems to have photosensitivity reaction following the Bactrim as her noted that she is much more burnett than usual. She also has evidence of worsening kidney disease with an increasing creatinine. Liver profile was not obtained. She has mucous membrane involvement in her nose, possibly eye involvement, although the states that these are her usual eye findings. Blood cultures on 11/19 were no growth after 48 hours. Wound culture only had Staphylococcus coag-negative. Respiratory panel was negative. PLAN: Discontinue intravenous (IV) antibiotic. I do not see any evidence of infection. Her white count was normal and she is afebrile. This is a vasculitis.
[2016-11-23] MEDS: SODIUM CHLORIDE 0.9% INJ 10 ML SYR IV SCH ×2 (05:31→18:00)
[2016-11-23 05:38] LABS: MEAN CORPUSCULAR HEMOGLOBIN 31.3 pg (27.0-33.0); MEAN CORPUSCULAR HGB CONC 32.1 g/dl (32.0-36.5); MEAN CORPUSCULAR VOLUME 97.4 fl (80.0-96.0); RED CELL DISTRIBUTION WIDTH 15.5 % (11.5-14.5)
[2016-11-23 05:42] LABS: INR 3.56
[2016-11-23 05:52] LABS: ANION GAP 15 MEQ/L (8-16); BLOOD UREA NITROGEN 101 MG/DL (7-18); CALCIUM LEVEL 7.8 MG/DL (8.5-10.1); CARBON DIOXIDE LEVEL 21 MEQ/L (21-32); CHLORIDE LEVEL 86 MEQ/L (98-107); CHOLESTEROL LEVEL 99 MG/DL (<200); CREATININE FOR GFR 4.13 MG/DL (0.55-1.02); GLOMERULAR FILTRATION RATE 11.8 (>51); GLUCOSE, FASTING 92 MG/DL (70-105); SODIUM LEVEL 122 MEQ/L (136-145); TRIGLYCERIDES LEVEL 74 MG/DL (<150)
--- NOTE | 2016-11-23 07:02 | RO ---
DATE OF PROCEDURE: 11/21/2016 PREOPERATIVE DIAGNOSIS: Skin rash POSTOPERATIVE DIAGNOSIS: Skin rash. OPERATIVE PROCEDURE: 5 mm punch biopsy of the left upper extremity rash. SURGEON: Dr. Atul Johnston USABILITY SPECIALIST: None. ANESTHESIA: 2 mL of 1% lidocaine with epi local. COMPLICATIONS: None. INDICATIONS FOR PROCEDURE: The patient is a 56-year-old female who presents with a 1-week history of spreading rash on her upper and lower extremities. This rash is very painful. Recommendations to proceed with punch biopsy for further diagnosis. Risks and benefits of the procedure not limited but including bleeding, infection, need for further surgery discussed in detail with the patient. Informed consent was obtained and procedure was planned. PROCEDURE: The patient's left arm sterilely prepped and draped with chlorhexidine. Next time-out was done to confirm proper patient and proper procedure with the nursing staff at the bedside. Next, local was injected to the skin and subcutaneous tissue of the left lateral upper arm. Following that, a 5 mm punch biopsy was used to obtain a specimen. Specimen was placed in a jar and sent to pathology. Once the specimen was removed, the area was covered with a folded up 4x4 and the arm was wrapped with gauze thus ending procedure. The patient tolerated the procedure well and we will now wait for pathology results
[2016-11-23] MEDS: HumaLOG INSULIN (NovoLOG) PER UNIT SC SCH ×3 (07:30→17:30)
[2016-11-23] MEDS: HEPARIN SOD (PORCINE) 5000 UNITS/ML VIAL SC SCH (09:00)
[2016-11-23] MEDS: METOPROLOL TARTRATE 100 MG TAB PO SCH ×2 (09:00→20:48)
[2016-11-23] MEDS ORDERED: valACYclovir HCL 500 MG TAB PO SCH (09:00)
[2016-11-23] MEDS: LEVEMIR (INSULIN DETEMIR) 1 UNITS/0.01ML SC SCH (09:00)
[2016-11-23] MEDS ORDERED: VANCOMYCIN HCL 1,000 MG, VIAL MATE ADAPTER 1 EACH in D5W 250 ML IV SCH (09:00)
[2016-11-23] MEDS: XIIDRA 5% OU SCH ×2 (10:26→21:18)
[2016-11-23] MEDS: OPTH OU SCH ×2 (10:26→21:18)
[2016-11-23] MEDS: ONDANSETRON 4MG/2ML VIAL (J2405) IV PRN (10:26)
[2016-11-23] MEDS: TIMOLOL MALEATE 0.5% OPHTH SOLN 5 ML OD SCH ×2 (10:26→21:15)
[2016-11-23] MEDS: BRIMONIDINE 0.15% OPHTH SOLN 5 ML OD SCH ×2 (10:26→21:00)
[2016-11-23] MEDS: ASPIRIN 81 MG ENTERIC TAB PO SCH (10:27)
[2016-11-23] MEDS: PANTOPRAZOLE 40MG TAB (PROTONIX) PO SCH (10:27)
[2016-11-23] MEDS: OMEPRAZOLE 20 MG CAP PO SCH ×2 (10:27→20:48)
[2016-11-23] MEDS: SENOKOT S TAB PO SCH ×2 (10:49→20:49)
[2016-11-23] MEDS: TRIAMCINOLONE ACET 0.1% OINTMENT 15 GM EXT SCH ×2 (12:33→20:50)
[2016-11-23] MEDS: MUPIROCIN 2% CREAM 30GM TOP SCH ×2 (12:33→20:51)
[2016-11-23] MEDS ORDERED: LIDOCAINE 1% SDV INJ 30 ML VIAL As Ordered ONE (13:07)
[2016-11-23] MEDS ORDERED: BUPIVACAINE HCL 0.5% 30 ML VIAL As Ordered ONE (13:07)
--- NOTE | 2016-11-23 13:20 | REP ---
CT ABDOMEN AND PELVIS WITHOUT IV CONTRAST: CT abdomen and pelvis performed without IV contrast. Sagittal and coronal reconstruction images are performed. The lack of IV contrast limits evaluation of visceral organs. The visualized lung bases demonstrate small right pleural effusion and tiny left pleural effusion. Liver is mildly enlarged with a length of approximately 20 cm. No gross mass is seen. There appear to be small gallstones in the dependent portion of the gallbladder. Spleen is grossly unremarkable. Adrenals, pancreas and kidneys are grossly unremarkable. There are extensive renal artery calcifications bilaterally. Moderate atherosclerotic calcifications are seen of the abdominal aorta without aneurysm. There is no adenopathy seen and there is no free air. There is mild scattered abdominal and pelvic ascites. No definite bowel wall thickening is seen. There is a 4 cm calcified uterine fibroid present without other evidence of pelvic mass. The urinary bladder is not distended and not well evaluated. There is a small hiatal hernia. IMPRESSION: Small hiatal hernia. Mild hepatomegaly. Small right pleural effusion. Mild abdominal and pelvic ascites. There appear to be small gallstones in the gallbladder. Calcified uterine fibroid. Signed by Atul Kennedy MD 11/23/2016 03:20 P
--- NOTE | 2016-11-23 13:22 | REP ---
CHEST, TWO VIEWS: Two views of the chest are performed and compared with prior study of 06/18/2016. There is cardiomegaly and pulmonary venous hypertension. There is a small right effusion. Multiple sternal wires and mediastinal clips are present as well as a prosthetic heart valve. Pacemaker is again noted. IMPRESSION: Cardiomegaly. Pulmonary venous hypertension. Small right effusion. Signed by Atul Kennedy MD 11/23/2016 03:20 P
--- NOTE | 2016-11-23 14:07 | IPN ---
DATE: 11/23/2016 SUBJECTIVE: Patient was seen and examined at the bedside today morning. Last 24 hour events are noted and discussed with the hospitalist, Dr. Radha Kline. The patient became more confused and obtunded today morning. She is being transferred to the intensive care unit (ICU). When I saw the patient today morning, her and youngest daughter was also present at the bedside. Family has finally convinced the patient to have hemodialysis done. The patient is frankly uremic at this time. She is not able to communicate, but she is verbally agreeing to have hemodialysis done because she mentions that her family wants her around. REVIEW OF SYSTEMS: Patient is unable to provide any reliable review of systems to me at this time. She is uremic, obtunded and confused. She is able to answer a few questions. OBJECTIVE: VITAL SIGNS: Temperature is 96.1 degrees Fahrenheit, blood pressure is 158/72, pulse 77, respiratory rate of 20, saturating 94% on room air. INTAKE AND OUTPUT: Urine output recorded since overnight is 10 mL only. Bed scale weight is not available. PHYSICAL EXAMINATION: GENERAL: Patient is very drowsy, obtunded and uremic at this time. Follows very few commands. HEAD/NECK: Patient has hazy corneas bilaterally. Pupils are equally round and reactive to light. Mucous membranes are slightly dry. Neck is supple. There is no jugular venous distention (JVD). CARDIOVASCULAR: S1, S2, regular rate. No murmur, rub or gallop. RESPIRATORY: Chest is clear to auscultation bilaterally. Bilateral equal air entry. No rales or rhonchi. ABDOMEN: Soft, obese. Positive bowel sounds. Old abdominal surgical scars. Otherwise, no organomegaly. MUSCULOSKELETAL: Patient has bilaterally above knee amputations on the lower extremities. She has an erythematous rash on the bilateral upper extremities, which is healing at this time. RESIDENTIAL TECH: Patient is frankly uremic. Follows very few commands. Has asterixis, otherwise moves upper extremities on command. SKIN: Erythematous tender rash on bilateral upper extremities and stumps of the bilateral lower extremities, which is healing at this time after starting steroids. PSYCH: Uremia at this time. LAB REVIEW: CBC showed a WBC of 17, hemoglobin 14.2, platelets are 121. BMP showed sodium 122, potassium 5, chloride is 86, bicarb 21, BUN is 101, creatinine is 4.1, calcium was 7.8, magnesium is 2, iron is 190, TIBC 204, transferrin saturation is 93, ferritin is 32,768. Immunology compliment 3 level is low at 57, C4 is 20.2. The rest of the serology and immunology is pending. IMAGING: A CAT scan of abdomen and pelvis without IV contrast was done, which showed a small hiatal hernia, mild hepatomegaly, small right pleural effusion, mild abdominal and pelvis ascites. CURRENT INPATIENT MEDICATIONS: The patient's medications were all reviewed by me. She was started on vancomycin today morning. She has also been started on Valtrex 1000 mg by mouth daily. Her Solu-Medrol dose has been changed to 60 mg IV every 12 hours. There is no other change in the medications today as compared with yesterday. ASSESSMENT: 56-year-old female with a past medical history of chronic kidney disease stage IV, congestive heart failure (CHF), coronary artery disease, peripheral vascular disease, status post bilateral above knee amputations, diabetes, asthma, admitted this time because of centripetal rash. Nephrology service was called for management of acute kidney injury superimposed on chronic kidney disease stage IV. PLAN: 1. Acute oliguric renal failure superimposed on chronic kidney disease stage IV. The patient has aliza uremia at this time. Her urine output is barely 10 mL since yesterday. The patient was refusing hemodialysis yesterday, however she was convinced by her family to start hemodialysis and today she has verbally agreed to start hemodialysis after being pressurized by the family. Her and daughter were also present at the bedside and they want her to start hemodialysis. I discussed this with Dr. Barrera, the vascular surgeon. He will kindly place the tunneled hemodialysis catheter in the right IJ today and the patient will be urgently hemodialyzed after the placement of hemodialysis catheter. 2. Centripetal skin rash. Most likely vasculitis or drug induced rash. All of the possible offending medications were held including Uloric yesterday. She is currently on steroids, but because of the worsening encephalopathy and possible steroid induced psychosis, the dose has been decreased to 60 mg IV daily twice a day. The rest of the management is as per primary team. 3. History of congestive heart failure (CHF). Volume status is optimal at this time. Diuretics were stopped. If needed, we shall manage the volume with hemodialysis now. 4. History of gout secondary to chronic kidney disease. Uloric was stopped for possible association with skin rash. If needed, and if her uric acid levels stay high, she will be started on a lower dose of allopurinol. 5. Diabetes mellitus type 2. The patient is currently obtunded, probably not able to take the diet. Hold the Levemir at this time. Continue insulin sliding scale as needed only. 6. Hypertension. Continue current dose of Lopressor 100 mg by mouth twice a day. 7. Chronic kidney disease mineral bone disease. PTH level was ordered and it is pending. 8. Social issues. Patient will need to be placed for outpatient hemodialysis procedure once she is discharged from the hospital. The plan of care was discussed with the patient's family members at the bedside with the patient's RN in the ICU, with the vascular surgeon, Dr. Barrera, and with the primary hospitalist, Dr. Radha Kline.
--- NOTE | 2016-11-23 15:00 | ROOPDOC ---
[facility] Report Of Operation Report of Operation DATE OF PROCEDURE: 11/23/16 PREOPERATIVE DIAGNOSES:Renal failure requiring hemodialysis. POSTOPERATIVE DIAGNOSES: Renal failure requiring hemodialysis. PROCEDURE: Right internal jugular vein ultrasound and fluoroscopic guided 19 cm tip to cuff central venous tunneled catheter insertion. SURGEON: Dr. Wade Barrera MD MORTGAGE LOAN OFFICER ORIGINATOR: None INDICATION:Patient is a 56-year-old female who has renal failure who requires placement of the tunneled central catheter for hemodialysis access. Patient will undergo placement of a right internal jugular vein PermCath. Risks, benefits and alternative treatment options were discussed with the patient's , as the patient is not able to consent at this time.. Alternative treatment options included no intervention with continued conservative management. Risks included but were not limited to infection, bleeding, renal failure requiring hemodialysis, possible need for further open surgical intervention, cerebrovascular accident, myocardial infarction, pulmonary embolus , DVT, loss of limb, loss of life and poor outcome. Patient's 's questions were answered, and patient's agrees to proceed with a right internal jugular vein PermCath insertion ANESTHESIA: Local MAC. SEDATION TIME: None FLUORO TIME: 72 seconds CONTRAST: None IVF: 200 ESTIMATED BLOOD LOSS:Approximately 50 mL. HEPARIN: None PROTAMINE: None COMPLICATIONS: None DRAINS: None SPECIMENS: None IMPLANTS: 19 cm tip to cuff palindrome dialysis catheter in the right internal jugular vein FINDINGS: Normal anatomy DESCRIPTION OF PROCEDURE: Patient was taken to the operating room, placed supine on the operating room table, and after performing a surgical timeout confirming the correct patient and procedure, the patient was prepped and draped in a standard surgical fashion. Ultrasound is used to evaluate the right internal jugular vein which was noted to be widely patent easily compressible and free of thrombus. The also was used to guide cannulation of the right internal jugular vein with an micro-puncture needle. The micro-puncture was advanced through the micropuncture needle which subsides to micropuncture sheath. An Amplatz wire was advanced through the micropuncture sheath. A 19 cm tip to cuff palindrome dialysis catheter was tunneled through a puncture wound in the right chest area and brought out through a puncture wound at the right internal jugular vein entry site after anesthetizing the overlying skin with 1% lidocaine mixed with half percent Marcaine. The right internal jugular vein was then sequentially dilated under fluoroscopic guidance, an introducer sheath was placed, and then the catheter was advanced through the introducer sheath which was peeled away and removed. Catheter was positioned with the tip in the superior vena cava right atrial junction. Both ports were aspirated noted to aspirate easily and then flushed with heparinized saline. Catheter was secured to the anterior chest wall using 2-0 Prolene suture after anesthetizing the overlying skin with 1% lidocaine mixed with half percent Marcaine. The puncture wound in the right neck was closed using 4-0 Monocryl suture in inverted interrupted fashion. Dressings were applied, patient tolerated the procedure well. All instrument, sponge and needle counts were correct at the end of the case. There were no complications, and Dr. Barrera was present for and directed the entire case. Patient was transferred to the ICU in critical condition. RADIOLOGIC SUPERVISION AND INTERPRETATION: The initial ultrasound of the right internal jugular vein showed the vessel to be widely patent, easily compressible and free of thrombus. Ultrasound was used to guide cannulation of the right internal jugular vein with a hardcopy image preserved. The right internal jugular vein was sequentially dilated under fluoroscopic guidance. Catheter was positioned with the tip in the superior vena cava right atrial junction. Final fluoroscopic image showed the catheter to be in good position and good alignment with no pneumo or hemothorax noted. Catheter is stable for use for hemodialysis access. Pranay Barrera MD Nov 23, 2016 15:00
[2016-11-23] MEDS ORDERED: NALOXONE INJ 0.4 MG/1 ML VIAL (J2310) As Ordered ONE (15:04)
[2016-11-23] MEDS ORDERED: NALOXONE INJ 0.4 MG/1 ML VIAL (J2310) IV STA (15:06)
[2016-11-23 15:34] LABS: ABG BASE EXCESS -13.4 (-2.0-2.0); ABG DEVICE NONREBREATH; ABG PARTIAL PRESSURE CO2 23.6 mmHg (35.0-45.0); ABG PARTIAL PRESSURE O2 140.2 mmHg (75.0-100.0); ABG STANDARD HCO3 14.3 MEQ/L (22.0-26.0); ABG TOTAL CO2 11.8 MEQ/L (22.0-29.0); ABG pH (ARTERIAL) 7.288 UNITS (7.350-7.450)
[2016-11-23] MEDS ORDERED: fentaNYL 100 MCG/2 ML INJECTION (J3010) As Ordered ONE (15:57)
[2016-11-23] MEDS ORDERED: LIDOCAINE 2% INJ 100 MG/5 ML SDV (FOR ANES.) As Ordered ONE (15:57)
[2016-11-23] MEDS ORDERED: MIDAZOLAM INJ 2 MG/2 ML VIAL (J2250) As Ordered ONE (16:00)
[2016-11-23] MEDS ORDERED: PHENYLephrine HCL 500 MCG/5 ML (100MCG/ML) SYRINGE (J2370) As Ordered ONE (16:00)
[2016-11-23] MEDS ORDERED: ePHEDrine SULFATE 25 MG/5 ML(5MG/ML) SYRINGE As Ordered ONE (16:00)
--- NOTE | 2016-11-23 17:06 | IPN ---
DATE: 11/23/2016 SUBJECTIVE: The patient is seen in the room in the morning. The patient continues to have altered mental status change. Per patient's , the patient's rash is improving. I discussed the code status with the . He stated he wanted to the patient to be a FULL CODE, and he understands the importance of hemodialysis for the patient. He will continue to communicate with the patient to see if the patient is willing to pursue with dialysis. In the afternoon later, we finally got the consent for dialysis, and the patient went down to the operating room (OR) for temporary dialysis catheter insertion and triple-lumen catheter insertion. The patient had acute decompensation of her blood pressure and the patient developed respiratory failure, then the patient was transferred to the intensive care unit (ICU). All the events were discussed with the patient's and he understands the patient's condition is critical. OBJECTIVE: VITAL SIGNS: In the morning, the temperature is 97, pulse is 60, respirations 20, blood pressure is 117/58, pulse oximetry 96% on room air. GENERAL: In the morning the patient is alert and awake, but not fully oriented. HEENT: Normocephalic, atraumatic. CARDIOVASCULAR: Regular rate, positive S1, S2. LUNGS: Decreased breath sounds, but no wheezes. ABDOMEN: Morbidly obese, nontender, nondistended. EXTREMITIES: There is still some erythematous rash with skin maceration covered with dusk-colored crust. The area of erythema has regressed compared to yesterday. No active discharge or bleeding from the lesions. The patient has bilateral above-knee amputations. LABORATORY DATA: WBC 17, hemoglobin 14.2, hematocrit 44.2, platelet count 121. Sodium is 122, potassium five, chloride is 86, carbon dioxide 21, BUN 101, creatinine is 4.13, GFR is 11.8. Fasting glucose 92. A1c is 8.9. Calcium is 7.8, magnesium two. C-reactive protein is 5.31. Triglycerides are 74. Total cholesterol is 99. LDL is 34.2, HDL is 50. ASSESSMENT AND PLAN: 1. Acute respiratory failure. Events occurred shortly after the patient had a temporary dialysis catheter insertion and triple lumen insertion. Due to the patient's critical condition, boat outboard engine mechanic Dr. Jluis Benitez is consulted and we appreciate her assistance. When the patient was moved back to the intensive care unit (ICU) from the OR, the patient was on pressor. 2. Bilateral skin erythematous lesions with skin maceration. No definitive diagnosis at this time. It is suspected that the patient may have had a drug-induced skin reaction and vasculitis. Previously the patient had been started on steroids, and there is clinical improvement of the lesions. 3. Acute on chronic kidney failure. The patient has a baseline creatinine of 1.8 on 08/01/2016. Nephrology has been consulted. Yesterday we asked if the patient will give consent for dialysis. However, the patient refused yesterday. Today, we discussed with the patient's proxy, her , the critical importance of the dialysis, and later the consent was obtained and the patient went down to the operating room (OR) for temporary dialysis catheter insertion, and the patient has scheduled dialysis today. We will continue to look for possible reversible causes for the patient's renal failure. The patient has been anuric for the past 1-2 days. 4. History of coronary artery disease status post coronary artery bypass graft (CABG). On aspirin, Plavix and statin. 5. Peripheral artery disease. The patient has bilateral above-knee amputations (AKA), on aspirin and Plavix. 6. History of diastolic congestive heart failure. The patient's diuretic has been on hold. Currently the patient has renal failure. The patient has scheduled hemodialysis. We appreciate nephrology's assistance of the patient's fluid management. 7. Type 2 diabetes on sliding scale. 8. History of mitral valve repair. 9. The patient had a pacer insertion in 2008. 10. Deep venous thrombosis (DVT) prophylaxis. The patient is on heparin.
[2016-11-23] MEDS: DEXTROSE 50% 50 ML SYRINGE IV PRN ×2 (17:36→21:08)
--- NOTE | 2016-11-23 17:50 | CR ---
DATE: 11/23/2016 CRITICAL CARE TIME: One hour. This excludes all procedures. I was urgently called by Dr. Radha Kline for this patient urgently in her postoperative state. He states he was worried about her respiratory status and hypotension. On my arrival to the room, the patient was cyanotic with purple digits, poor perfusion and unmeasurable oximetry. Arterial blood gas was attempted, could not to be obtained, and I placed an arterial line. She was sedated, unresponsive. I gave Narcan as she received narcotics for her procedure, although this was a small dose. She did have significant response to Narcan and awoke and started responding to stimuli. She is encephalopathic from uremia. She had been admitted for a diffuse extremity predominant rash. She had end-stage renal disease and initially refusing dialysis until this morning. Due to the fact that she was significantly encephalopathic, it was determined that dialysis was fairly urgent. On continuous positive airway pressure (CPAP) of 12, she was obtaining tidal volumes of 700. Arterial blood gas did show a metabolic acidosis with adequate oxygenation. I was able to wean her off vasopressors that were placed in the operating room (OR). PHYSICAL EXAMINATION: VITAL SIGNS: Temperature is 98.5, blood pressure is 123/68 and pulse is 60, oxygen saturation 97% on CPAP 12 with FIO2 of 0.40. GENERAL: The patient has decreased level of consciousness, unable to perform commands, and responds to painful stimuli now after Narcan administration. HEENT: Pupils are filmy, asymmetric and displaced. She has a history of glaucoma. There is some icterus to her sclerae, although mild. There is evidence of recent hemorrhage from her right nares. Tongue is midline. Fairly moist. There is no desquamation inside her mouth. She is edentulous. Mallampati four. NECK: Supple. No tracheal deviation or mass. CARDIAC: Regular S1,S2 paced at 60 on telemetry. Point of maximum impulse (PMI ) is difficult to palpate due to body habitus. There is a well-healed sternal scar with a stable sternum. No significant peripheral edema. PULMONARY: Clear to auscultation without rales, rhonchi or wheeze and no dullness to percussion. Poor chest expansion. ABDOMEN: Obese, soft, nontender, nondistended with hypoactive bowel sounds. No discernible mass. I do not palpate any hepatomegaly; however, her body habitus makes this fairly difficult. EXTREMITIES: She has bilateral above-knee amputations (AKA). The right lower extremity shows a rash with some necrosis. The hands have desquamation and epidermal necrosis. NEUROLOGIC: As mentioned above, no tremor. No seizure activity. Pulling arms away, responding to pain but unable to communicate effectively at this point in time. She has rolling eye movements but no nystagmus. LABORATORY DATA: Laboratory evaluation shows a sodium of 122, potassium is 5.0, chloride 86, bicarb of 21, chloride 101, creatinine of 4.13, glucose of 209. Hemoglobin is 14.2, hematocrit 44.2 with a platelet count of 121. White count is 17.0. She is on Solu-Medrol. INR is 3.56. IMAGING: Chest x-ray from this morning shows cardiomegaly with an AV pacer in place. A tunneled catheter is in place with the tip of the catheter at the superior vena cava. There is no evidence of pneumothorax. No significant pulmonary infiltrate. Poor chest expansion due to body habitus. IMPRESSION: 1. Respiratory failure with encephalopathy. Respiratory failure likely secondary to small doses of sedatives given in the face of uremic encephalopathy. Narcan was helpful; may need to repeat this at a later time. Therefore, will require close monitoring. I placed her on CPAP as she does have a history of obstructive sleep apnea and likely has obesity hypoventilation, especially in the face of encephalopathy. 2. Encephalopathy likely from uremia; however, I suspect she also has liver dysfunction. I therefore added an ammonia level to her labs. She may require lactulose administration. 3. Hypotension, improved with Narcan. We will continue to monitor for hypotension and placed an arterial line. Currently the patient is scheduled to receive metoprolol. This will have hold parameters as she has known coronary artery disease. 4. Metabolic acidosis secondary to renal failure. Anion gap is elevated. Currently undergoing urgent dialysis. 5. Obstructive sleep apnea, recently noncompliant with therapy while in hospital. 6. High risk of bleeding with elevated international normalized ratio (INR) on aspirin and Plavix. I do not believe she needs any heparin especially when she is auto anticoagulated; therefore, I have discontinued her subcutaneous heparin. 7. Liver dysfunction. Close monitoring should be performed by her primary physician regarding her liver dysfunction. I have ordered ammonia levels. 8. Rash. Clinically appears to be desquamative necrotic epidermolysis. All potential offending agents should be discontinued. Although there has been some improvement in the rash, and the rash may have been secondary to antibiotic therapy that was recently given, I am discontinuing Singulair as she does not have any bronchospasm on exam. 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 There was no granulomatous formation on biopsy however. 9. Coronary artery disease. Currently the patient is ventricular paced at 60. SYNOPSIS: Overall the patient's prognosis is extremely guarded. She is encephalopathic with decreased mental status, severe renal disease, liver impairment with severe metabolic acidosis. Will continue to support. At this point in time, I do not see any signs of infection. However, she remains on vancomycin. Will defer this to infectious disease (ID) and primary management. KELSEY
[2016-11-23] MEDS ORDERED: LACTULOSE 20 GM/30 ML SYRUP UD PR ONE (20:00)
[2016-11-23] MEDS ORDERED: NOREPINEPHRINE BITARTRATE 8 MG in D5W 500 ML IV SCH (20:30)
[2016-11-23] MEDS: CLOPIDOGREL 75 MG TAB PO SCH (20:48)
[2016-11-23] MEDS: FLUTICASONE PROP 0.05% NASAL SPRAY 16 GM (FLONASE) SCH (21:16)
[2016-11-23] MEDS: POLYVINYL ALCOHOL OPHTH SOLN 15 ML(LIQUITEARS) OU PRN (21:17)
[2016-11-23 23:26] LABS: ABG BASE EXCESS -12.9 (-2.0-2.0); ABG PARTIAL PRESSURE CO2 22.5 mmHg (35.0-45.0); ABG PARTIAL PRESSURE O2 193.1 mmHg (75.0-100.0); ABG STANDARD HCO3 14.8 MEQ/L (22.0-26.0); ABG TOTAL CO2 11.7 MEQ/L (22.0-29.0); ABG pH (ARTERIAL) 7.309 UNITS (7.350-7.450)
[2016-11-23 23:47] LABS: CALCIUM LEVEL 7.3 MG/DL (8.5-10.1); CREATININE FOR GFR 3.94 MG/DL (0.55-1.02); GLOMERULAR FILTRATION RATE 12.5 (>51); MAGNESIUM LEVEL 2.2 MG/DL (1.8-2.4); POTASSIUM SERUM 4.7 MEQ/L (3.5-5.1)
[2016-11-24] VITALS (14 sets, daily range): BP systolic 87–122; BP diastolic 39–62
[2016-11-24] MEDS: methylPREDNISolone INJ 125 MG/2 ML VIAL (J2930) IV SCH (01:03)
[2016-11-24] MEDS: LACTULOSE 20 GM/30 ML SYRUP UD PR SCH ×3 (03:10→11:24)
[2016-11-24] MEDS: SODIUM CHLORIDE 0.9% INJ 10 ML SYR IV SCH (05:24)
[2016-11-24 06:06] LABS: ADD MANUAL DIFFER YES; DIFF SLIDE NUMBER 64; MEAN CORPUSCULAR HEMOGLOBIN 31.5 pg (27.0-33.0); MEAN CORPUSCULAR HGB CONC 31.7 g/dl (32.0-36.5); MEAN CORPUSCULAR VOLUME 99.3 fl (80.0-96.0); PLATELET COUNT, AUTOMATED 131 k/mm3 (150-450); RED CELL DISTRIBUTION WIDTH 15.8 % (11.5-14.5)
--- NOTE | 2016-11-24 06:07 | RO ---
DATE OF PROCEDURE: 11/23/2016 PREOPERATIVE DIAGNOSIS: Hypotension. POSTOPERATIVE DIAGNOSIS: Hypotension. PROCEDURE: Left radial art line. SURGEON: Jluis Benitez DO WELFARE INVESTIGATOR: None ANESTHESIA: Patient is already sedated from recent procedure and unresponsive. DESCRIPTION OF PROCEDURE: The left wrist was prepped and draped in a sterile manner. The ultrasound was used to identify the radial artery as there was prior difficulties obtaining arterial blood gases. The [employer] catheter was used. The needle was introduced into the artery with pulsatile flow. Wire was fed through the needle and the needle was removed, and the catheter was placed via modified Seldinger technique. The wire was removed and the catheter was attached to arterial monitoring. which showed a dampened pulsatile flow. This was flushed. Returned easily. This was sutured in place. A sterile impregnated dressing was applied over the site and an arm board was placed for protection. There were no observed complications. [facility]
[2016-11-24 06:15] LABS: ALBUMIN 3.2 GM/DL (3.2-5.2); ALBUMIN/GLOBULIN RATIO 1.28 (1.00-1.93); BILIRUBIN,DIRECT 1.3 MG/DL (0.0-0.2); CALCIUM LEVEL 7.2 MG/DL (8.5-10.1); CREATININE FOR GFR 4.2 MG/DL (0.55-1.02); GLOMERULAR FILTRATION RATE 11.6 (>51); MAGNESIUM LEVEL 2.2 MG/DL (1.8-2.4); PERCENT SATURATION 102.9 % (13.2-37.4); POTASSIUM SERUM 5.1 MEQ/L (3.5-5.1); TOTAL PROTEIN 5.7 GM/DL (6.4-8.2)
[2016-11-24 06:18] LABS: INR 5.44
[2016-11-24 06:19] LABS: WHITE BLOOD COUNT 34.1 K/mm3 (4.0-10.0)
--- NOTE | 2016-11-24 06:46 | REP ---
PORTABLE CHEST: AP portable view of the chest is performed. There has been placement of a right double lumen central venous catheter with the tip in the right atrium. There is no pneumothorax. There is again cardiomegaly. There is no acute infiltrate. Left pacemaker and right arm PICC line are again noted. Signed by Atul Kennedy MD 11/24/2016 07:23 P
--- NOTE | 2016-11-24 06:56 | REP ---
C-ARM VIEWS CHEST: Two C-arm views of the chest are performed during placement of a right double lumen central venous catheter. The tip of the catheter is in the right atrium. 1 minute 12 seconds fluoroscopy time utilized. Signed by Atul Kennedy MD 11/24/2016 07:23 P
[2016-11-24 07:02] LABS: BANDS 1 % (< 11); NUCLEATED RED BLOOD CELL 4 % (0-0)
[2016-11-24 07:03] LABS: CRENATED RBC 1+
[2016-11-24] MEDS: DEXTROSE 50% 50 ML SYRINGE IV PRN (08:08)
[2016-11-24] MEDS ORDERED: PANTOPRAZOLE 40MG INJ (PROTONIX) (C9113) IV SCH (09:00)
[2016-11-24] MEDS: OPTH OU SCH (09:00)
[2016-11-24] MEDS: LEVEMIR (INSULIN DETEMIR) 1 UNITS/0.01ML SC SCH (09:00)
[2016-11-24] MEDS ORDERED: VANCOMYCIN HCL 750 MG, VIAL MATE ADAPTER 1 EACH in D5W 250 ML IV SCH ×2 (09:00→16:00)
[2016-11-24] MEDS: XIIDRA 5% OU SCH (09:00)
[2016-11-24] MEDS: MUPIROCIN 2% CREAM 30GM TOP SCH (10:07)
[2016-11-24] MEDS: TIMOLOL MALEATE 0.5% OPHTH SOLN 5 ML OD SCH (10:09)
[2016-11-24] MEDS ORDERED: PHYTONADIONE 10MG/ML INJECTION (J3430) SC ONE (11:15)
[2016-11-24 11:56] LABS: ABG BASE EXCESS -12.4 (-2.0-2.0); ABG HCO3 11.3 MEQ/L (22.0-26.0); ABG PARTIAL PRESSURE CO2 22.1 mmHg (35.0-45.0); ABG STANDARD HCO3 14.9 MEQ/L (22.0-26.0); ABG pH (ARTERIAL) 7.328 UNITS (7.350-7.450)
[2016-11-24] MEDS ORDERED: LORazepam 2 MG/ML VIAL (J2060) IV PRN ×2 (13:00→17:45)
[2016-11-24] MEDS ORDERED: SODIUM BICARBONATE 75 MEQ in D5W/0.45% SODIUM CHLORIDE 1,000 ML IV SCH (13:00)
[2016-11-24] MEDS ORDERED: SCOPOLAMINE 1.5 MG TRANSDERMAL TD PRN (13:00)
[2016-11-24] MEDS ORDERED: MORPHINE 2 MG/ML 1ML SYRINGE IV PRN (13:00)
--- NOTE | 2016-11-24 13:53 | CCN ---
DATE: 11/24/2016 CRITICAL CARE NOTE: Critical care time was 1 hour and 26 minutes time spent discussing case with internal medicine physician and freight team associate. My biggest concern is for acute fulminant hepatic failure in the face of encephalopathy. I was consulted yesterday afternoon for encephalopathy, decreased level of responsiveness and hypotension. This morning the patient remains slightly hypotensive. I have again stopped vasopressors on my arrival to the room. She remains encephalopathic. She has been hypoglycemic throughout the evening. Her INR is now up to 5.44. Ammonia is up to 149 with AST of nearly 3000, ALT of 1800. She has no prior history of liver disease as I interview the at bedside. I have attempted to explain the severity of her acute liver failure. At this point in time, I do not have a discernible cause, however, workup is pending. Patient remains on bilevel positive airway pressure (BiPAP) due to history of obstructive sleep apnea. She has had no hypercarbic respiratory failure as of yet. PHYSICAL EXAMINATION: Temperature is 97.8, pulse is 60, respiratory rate is 31, blood pressure is 108/51, oxygen saturation is 94% on 0.40 FiO2. General: The patient is barely arousable. She opens eyes occasionally. She is not following any direction. She will respond to painful stimuli only. She is having occasional myoclonic jerks. HEENT: Sclerae slightly icteric. Pupils are opaque, partially opacified, dilated. Oropharynx Mallampati IV. Tongue is midline. She is edentulous. Neck is supple, large circumference. Carotid upstroke is fair without bruits. Lymphs: No cervical, supraclavicular, axillary adenopathy. Chest wall: Some bruising over recent access sites. Dialysis catheter remains on the right anterior chest wall. Cardiac: Paced at 60 regular, S1, S2 auscultation. Point of maximum impulse (PMI) is difficult to palpate, minimal peripheral edema. Abdomen: Obese, soft, nontender. No discernible splenomegaly. No masses or hernia. Extremities: Bilateral sckmu-xunn-szxambrimq (AKA). Skin: Some improvement especially in the erythematous component of the rash. She had significant desquamation of the posterior aspect of the dorsum of the hands. LABORATORY EVALUATION: Hyponatremia with a sodium of 126, potassium 5.1, chloride 93, bicarbonate of 15, BUN of 78, creatinine of 4.2. White blood cell count is elevated at 34.1 with 93% neutrophilia, 1% bandemia. Ammonia is 149. AST 2942. Ferritin is elevated. Transferrin sat is elevated. TIBC is low. Iron is high. Total bilirubin is 1.3. Phosphorus is 231. INR 5.440. Hemoglobin 14.8, hematocrit 46.6, platelet count of 131. IMPRESSION: 1. Acute fulminant liver failure with grade 3 hepatic encephalopathy. Differential for her acute liver failure remains broad, including a possible autoimmune disease or an idiosyncratic drug reaction. I do not believe she has had ischemic hepatopathy. This could also be acute recognition of chronic nonalcoholic steatohepatitis or hemochromatosis due to the fact that there is elevated ferritin and low TIBC with an elevated iron. There is also possibility of acute viral hepatitis. No evidence of hepatitis C or hepatitis B based on her current testing. Polymerase chain reaction (PCR) for herpes simplex is pending. However, usually patient will have a low bilirubin and leukopenia with herpes simplex hepatopathy. Non likely Ayaan syndrome. For treatment, we will treat underlying encephalopathy with lactulose, INR elevation with vitamin K administration. Due to the severity of her acidemia and persistent hypoglycemia , I am adding D5 half-normal saline with 75 mEq of sodium bicarbonate 100 mL/ hr We will monitor for volume overload. At this point in time, I believe she has a very high risk of mortality given the severity of her acute liver failure. I believe her chance of survival of less than 20%. 2. Elevated INR. Treating with vitamin K. Will continue to monitor for signs, symptoms of bleeding. Her heparin was discontinued yesterday. Tylenol was being administered up until yesterday. I have ordered a Tylenol level to make sure that n-acetylcysteine is not required. 3. Hypoglycemia. Adding D5 IV likely secondary to liver failure. 4. Severe metabolic acidosis, combination of renal failure and liver failure. 5. Leukocytosis. Patient is on vancomycin for the fact that there was a wound culture showing Staphylococcus and Enterococcus. We will continue to monitor for signs, symptoms of infection. However, patient is also on high dose steroids for possible autoimmune liver disease and autoimmune rash. 6. Rash. Likely related to acute fulminant hepatic failure, likely have similar causes. We will continue treatment as there has been some improvement with the use of steroids and withholding medications. 7. Encephalopathy. Treated as above. We will keep patient nothing by mouth nothing by mouth to prevent aspiration. The patient is at high risk for requiring intubation due to her ability to protect her airway. 8. Renal failure. Dialysis expected today. Initially thought the patient was mostly uremic encephalopathy. I feel that she has a combination of both. However, I believe her liver failure is actually more concerned currently. 9. Obstructive sleep apnea with obesity. We will have patient on her usual bilevel settings for all forms of sleep. She attains good tidal volumes around 800 on these settings. Overall very poor prognosis. I do not expect the patient to survive this hospitalization. After my conversation with nephrology and primary hospitalist I had recommended transfer to a facility with a liver specialist. Her had decided soon after to make her FURNITURE DETAILER and communicated that through the primary hospitalist. KELSEY
[2016-11-24] MEDS ORDERED: AZTREONAM 1 GM in D5W MINI-BAG PLUS 50 ML IV ONE (15:00)
[2016-11-24] MEDS ORDERED: CHECK TO SEE IF PATIENT IS RECEIVING DIALYSIS TODAY AND REFER TO THE VANCOMYCIN ORDER XX SCH (16:00)
[2016-11-24] MEDS ORDERED: LACTULOSE 20 GM/30 ML SYRUP UD PR SCH (16:00)
[2016-11-24] MEDS ORDERED: VANCOMYCIN HCL 1,000 MG, VIAL MATE ADAPTER 1 EACH in D5W 250 ML IV ONE (17:00)
[2016-11-24] MEDS ORDERED: ONDANSETRON 4MG/2ML VIAL (J2405) IV PRN (17:45)
[2016-11-24] MEDS ORDERED: AZTREONAM 0.5 GM in D5W 50 ML IV SCH (20:00)
--- NOTE | 2016-11-24 21:34 | IPN ---
DATE: 11/22/2016 Janet does not seem to be doing any better today. Even though there is no new lesions that have developed, she still complains of significant pain mostly in arms and stumps. She is uncomfortable sitting up or laying down. She has had no fever or chills. No nausea, vomiting or diarrhea. She has abdominal pain. Her appetite is poor. She has pain with eating anything that is spicy or sour. She was seen in consultation with Dr. Velasco for worsening kidney function. On review of history as well, I called the pharmacy who did get her medication list. On 09/05/2016, she picked up a prescription for Bactrim that she took for 10 days, 20 tablets total and had a refill on 10/02/2016 again for another 20 tablets, so the end of treatment for her Bactrim would be 10/12/2016. The patient has been on minocycline for rosacea and eye issues since 01/05/2016. I discussed the case with dermatology. They stated that minocycline is not a typical drug to cause photosensitivity. PHYSICAL EXAMINATION: Temperature is a 98.8, pulse 95, respirations 18, oxygen saturation 98% on room air, blood pressure was 158/72. HEART: Normal S1, S2. No murmurs. LUNGS: Clear. No wheezes, rales or rhonchi. ABDOMEN: Morbidly obese with multiple stretch hay, some ecchymosis in her lower abdominal area. She has stretch hay in the axillary area that are mildly erythematous and tender to touch. Arms from the knuckles from the PIP joint all the way midarm, she has multiple papular pustular lesions. Some of them have eroded and have a red base. Others are pustular, some are scabbed. Lesions on the stumps are mostly painful, purplish, papular lesions that are very tender to touch. There are no new lesions noted. On the back, she has more of small pustules that are not tender. LABORATORY DATA: White count is 10.1, hemoglobin 15.3, hematocrit 47.5, platelets 161. Erythrocyte sedimentation rate 1. Sodium 128, potassium 4.9, chloride 90, bicarbonate 22, BUN 84, creatinine 3.3, glucose 162, uric acid 3.5, calcium 9.1, magnesium 2' Iron 190, total iron binding capacity (TIBC) 204, iron saturation 93% and ferritin 32,768. Bilirubin 1.7, AST 179, ALT 87, alkaline phosphatase 256, CRP 3.26. Wound culture was positive for Staphylococcus epidermidis and Enterococcus faecalis. Respiratory virus panel was negative. Herpes polymerase chain reaction (PCR) was sent from the left forearm. No imaging studies done. PATHOLOGY: Biopsy was done from the left upper arm showed acantholytic lesion with superficial dermal ectasia without significant associated inflammation or vasculitis. Possibly allergic or immune-related injuries. IMMUNOLOGY: Antinuclear antibody (ADRIENNE), antineutrophil cytoplasmic antibody (ANCA), double-stranded deoxyribonucleic acid (DNA), glomerular basement membrane antibody pending. Complement level C3 is low at 57, with the normal being 90-180. IMPRESSION: 1. Painful rash. Differential diagnosis includes impetigo, herpes zosteriform eruption, pemphigus, paraneoplastic pemphigus or, less likely drug reaction. At this point, I would recommend using cold compresses and triamcinolone cream to help with decreasing the inflammation. Add Valtrex 1 gram by mouth daily as she has worsening kidney function to cover for herpetic eruption. Herpes PCR has been sent. 2. Elevated iron saturation and ferritin concerning for hemochromatosis. Patient is very tanned and that may be in the differential of these elevated iron studies. 3. Miliaria of the back. Probably from sweating in the heat. 4. Acute kidney injury on chronic kidney disease. Also, elevated liver profile. Hepatitis serology has been sent and is negative. I would suggest obtaining in the morning a CT of the abdomen and pelvis for further workup of abdominal pain and abnormal liver function tests, as well as a chest x-ray PA and lateral. Will continue to follow.
--- NOTE | 2016-11-24 21:35 | CR ---
DATE OF CONSULTATION: 11/21/2016 REASON FOR CONSULTATION: Painful skin rash on both hands and stumps. HISTORY OF PRESENT ILLNESS: Mrs. Siddiqui is a 56-year-old female with a history of coronary artery disease, congestive heart failure and bilateral been above-knee amputation who presented with a painful rash of 10-day duration. The patient's stated that the rash started on her knuckles of the left hand and progressed to the wrist and all the way up to the upper arms. It later started on the right hand and later on both stumps. She describes the rash as initially painful, papillary and purplish in color and then became cresting. It was very painful to touch. She has some lesions in her nose, none in her mouth or eyes. Even though she has really dry eyes and redness. this is her normal. She had no fever or chills. No nausea, vomiting or diarrhea, but was having some abdominal pain. She denied any chest pain or shortness of breath. The patient had a pustular rash on her back in early September and on 09/05/2016 picked up a prescription for Bactrim for 10 days, which was refilled on 10/02/2016 by her primary care provider, which she took for another 10 days. She should have ended that prescription on 10/12/2016. She takes minocycline as well since last summer for rosacea and some eye issues. No other new medications. PAST MEDICAL HISTORY: 1. Coronary artery disease with stents. 2. Mitral valve repair. 3. Coronary artery bypass graft (CABG). 4. Peripheral vascular disease with bilateral above-knee amputation. 5. Type 2 diabetes. 6. Chronic kidney disease. 7. Defibrillator. 8. Peripheral vascular disease. 9. 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 PAST SURGICAL HISTORY: 1. Coronary artery bypass graft (CABG) in 2007. 2. Automatic implantable cardioverter defibrillator (AICD) in 2008. 3. section. 4. Umbilical hernia. 5. Bilateral above-knee amputation. 6. Cataract surgery. SOCIAL HISTORY: She lives with her , who has been taking care of her. She denies any smoking, alcohol or drug abuse. REVIEW OF SYSTEMS: She has no appetite. No nausea or vomiting. She has diarrhea and some abdominal pain. She has severe painful rash, very uncomfortable. Change in taste buds. No neurologic deficit. No headaches. MEDICATIONS: - ceftaroline 200 mg every 12 hours - Excedrin Migraine - Benadryl cream topical; patient states it is very painful and it alejo when it is placed - Naprosyn cream both hands - metoprolol 100 mg by mouth twice a day - montelukast 10 mg by mouth at bedtime - omeprazole 20 mg by mouth twice a day - Zofran as needed - Protonix 40 mg by mouth twice a day - Xiidra ophthalmic ointment twice a day - aldactone 25 mg by mouth twice a day - Cymetra 10 as needed - timolol 1 drop both eyes twice a day - triamcinolone to stumps twice a day IMPRESSION: This is a 56-year-old female who has a severely painful rash, mostly involving upper extremities and bilateral stumps. It started in a centripetal fashion, but has spared the abdomen and the back. The rash has a superimposed yellowish discharge, which could be secondary impetigo. The patient's differential also involves eczema herpetiformis, drug eruption. Biopsy has been done. Vasculitis , as well. Her medications, Bactrim, was the last new medication that was added, but her last dose was 10/12/2016, which is about a month ago. Minocycline less likely causes photosensitivity and that kind of drug rashes. She is also hyperpigmented and very burnett and the stated that she is more tender than her usual. Also should rule out hemochromatosis. PLAN Obtain iron saturation and ferritin level. complement level, antinuclear antibodies (ADRIENNE), antineutrophil cytoplasmic antibody (ANCA), vasculitis workup. Discontinue ceftaroline. I will just cover her with vancomycin 1 gram and renally dose depending on vancomycin trough level. Obtain herpes polymerase chain reaction (PCR) on skin lesion from the hand. Will place cold compresses to help with moisturizer and decrease the pain and then triamcinolone cream topical. Add antiviral medication 1 gram by mouth daily would be sufficient for her renal function. Thank you for this consultation. [facility] MEDICAL CENTERCharly
--- NOTE | 2016-11-24 21:37 | IPN ---
DATE: 11/24/2016 SUBJECTIVE: The patient is seen and examined in the room today. The patient continues to be very confused. Not able to answer questions or follow commands. The patient has continuous positive airway pressure (CPAP) on. The patient is still on the pressor. During the day after multiple chance to discuss the patient's poor prognosis and rapid progression of patient's disease process, I also talked to him about the patient's multiorgan failure. After multiple in depth discussions, the patient's decided to place the patient on comfort measures only (BUCKLE COVERER ) status, as he does not feel the patient may benefit from transfer to tertiary care where the patient may have possibility for liver transplant. OBJECTIVE: VITAL SIGNS: Temperature 97.5, pulse 60, respiratory rate is 31, blood pressure is 102/53, pulse oximetry 96% on intermittent positive-pressure ventilation (IPPV). GENERAL: The patient is not fully awake. Not able to follow commands. Not able to answer questions. Barely responses to painful stimuli. HEENT: Icterus of eyes. Normocephalic, atraumatic. NECK: Triple-lumen central line in the right neck. CARDIOVASCULAR: The patient has atrioventricular (AV) pacer paced at 60. Positive S1, S2. Very distant heart sounds. RESPIRATORY: Distant lung sounds. No wheezes. ABDOMEN: Morbidly obese. Soft, nondistended. EXTREMITIES: Bilateral above-knee amputation. DERMATOLOGIC: Erythematous skin with skin desquamation has been improved when compared to previously. Also has similar skin finding at the right posterior stump. LABORATORY DATA: WBC is 34.1, hemoglobin 14.8, hematocrit 46.6, platelet count 131. Sodium is 126, potassium 5.1, chloride 93, carbon dioxide 15, BUN 78, creatinine 4.2, GFR is 11.6, fasting glucose 61, calcium 7.2, magnesium 2.2. Iron is 214. TIBC 208, ferritin 47,760. Total bilirubin 2, direct bilirubin 1.3, AST 2942, ALT 1855, alkaline phosphatase 231, ammonia level is 149. C-reactive protein is 9.47. Total protein 5.7, albumin 3.2. ABG showed pH of 7.328, pCO2 22.1, pO2 is 129, HCO3 is 11.3. PT is 52.8, INR is 5.44. ASSESSMENT AND PLAN: 1. Acute fulminant liver failure. Etiology unknown at this moment. I have talked to different specialists on board. The patient has extremely poor prognosis. Initially transfer to tertiary center for possible liver transplant was offered. However, we are both aware that considering the patient's other significant comorbidities, the patient may not really benefit from further aggressive interventions. He is aware that his 's physical condition has been deteriorating throughout the years. After discussing about the quality of life, and he does not want the patient to suffer further, and comfort measures only (BUCKLE COVERER) form was updated with the witness of his son-in-law and the daughter. 2. Acute respiratory failure, multifactorial, when patient had anesthesia, or when patient was in the operating room (OR) for the line insertions. Narcan was given when the patient arrived to the emergency room from the OR, and the patient was placed on an IPPV, and the patient was monitored in the intensive care unit (ICU). Currently, the patient is still relying on IPPV to maintain satisfactory oxygen saturation. 3. Severe hypotension. The patient has been on pressor yesterday. We are titrating the pressor dosage according to the patient's blood pressures. 4. Metabolic encephalopathy, multifactorial. Mostly likely secondary due to elevated ammonia level from rapid progressing fulminant hepatic failure, along with uremia and general physical deconditioning. Previously, multiple doses of lactulose attempted; however, the patient's ammonia level still has a difficult time decreasing the ammonia level. The patient was in the process of receiving the second round of hemodialysis. Since the patient's BUCKLE COVERER status is established, the hemodialysis will be stopped. 5. Acute on chronic kidney failure. The patient remains anuric in the last 1-2 days. Temporary dialysis catheter was inserted yesterday, and the patient started a trial round of hemodialysis yesterday. The patient was scheduled for a full-length hemodialysis today. 6. History of coronary artery disease status post coronary artery bypass graft (CABG) on aspirin, Plavix and statin. Anticoagulation on hold due to elevated international normalized ratio (INR). 7. Elevated INR due to fulminant hepatic failure. Within 24 hours, the patient's INR increased from 3.56 to 5.44. This shows some sign of inspissation of the liver failure. No active bleeding observed at this time. One dose trial of vitamin K was given to the patient. 8. History of diastolic congestive heart failure. 9. Severe peripheral arterial disease. The patient has bilateral above-knee amputations. Previously the patient was on aspirin and Plavix. 10. History of mitral valve repair. 11. History of AV pacer. The patient is currently paced at a heart rate around 60s. Pacer was inserted in 2008. 12. Erythematous skin rash with skin maceration and desquamation. Etiology unknown at this moment. Multiple workup was performed previously. Even biopsy was performed. No definitive diagnosis has been reached yet. Empirically the patient was treated with IV steroids which showed some improvement with the skin rash. 13. Severe metabolic acidosis. 14. Heavy growth of staphylococcus coagulase negative and Enterococcus faecalis on the wound cultures. Previously the patient was placed on Teflaro for concern for skin infection. Later the patient received vancomycin. Blood culture has remained negative for 72 hours. 15. Deep venous thrombosis (DVT) prophylaxis. The patient currently has elevated INR. The patient was on warfarin previously. Warfarin discontinued. PLAN: The patient has an extremely poor prognosis with fulminant hepatic failure combined with other severe comorbidities including severe peripheral artery disease and end-stage renal disease and congestive heart failure. Patient is placed on comfort measures only (BUCKLE COVERER) status. MTDD
--- NOTE | 2016-11-24 23:43 | ECGEPIP ---
Stationary ECG Study [facility] Test Date: 2016-11-23 Pat Name: CHAVO GEORGE Department: Room: [place] [address] Gender: F Registration Officer: VERN : 1960 Requested By: VALENCIA Edouard Order Number: [id number] Reading MD: Manuel Herbert Measurements Intervals [place] Rate: 60 P: 240 IA: 154 QRS: -70 QRSD: 166 T: 120 QT: 568 QTc: 568 Interpretive Statements ELECTRONIC ATRIAL PACEMAKER ELECTRONIC VENTRICULAR PACEMAKER ABNORMAL RHYTHM ECG COMPARED TO THE LAST 3 TRACINGS IN THE SYSTEM, NO SIGNIFICANT CHANGES Electronically Signed On 11-24-2016 23:43:17 EDT by Manuel Herbert
[2016-11-25 10:46] LABS: HEPATITIS B SURFACE ANTIBODY NEGATIVE (POSITIVE)
--- NOTE | 2016-11-25 15:14 | IPN ---
DATE OF SERVICE: 11/24/2016 SUBJECTIVE: Patient was seen and examined at the bedside today morning in the intensive care unit (ICU) during the work rounds and again during urgent hemodialysis session last 24 hour events are noted. Patient's mental status did improve. She is in for liver failure at this time. She has a hepatic and uremic encephalopathy. She is currently on BiPAP. Patient was dialyzed for 2 hours yesterday. Critical care team was also present at the bedside. Patient's family members were also present. The patient is clinically deteriorating at this time. REVIEW OF SYSTEMS: Patient's review of systems is unable to obtain because she is encephalopathic and currently on BiPAP. OBJECTIVE: VITAL SIGNS: Temperature is 97.8 degrees Fahrenheit, blood pressure is 100/42, pulse 60, respiratory rate of 31, saturating 96% on BiPAP at 30% FiO2. INTAKE AND OUTPUT: Urine output is 0 overnight. Weight in the bed scale is 89.5 kg. PHYSICAL EXAMINATION: GENERAL: Patient is on BiPAP, laying in bed, agitated, and encephalopathic. HEAD/NECK: Patient has a BiPAP mask at this time. Eyes are closed. Neck is supple. There is no jugular venous distention (JVD). CARDIOVASCULAR: S1, S2, regular rate. No murmur, rub or gallop. RESPIRATORY: Chest is clear to auscultation bilaterally. Bilateral equal air entry. No rales or rhonchi. ABDOMEN: Soft, obese. Positive bowel sounds. Nontender. No organomegaly could be appreciated because of patient's body habitus. MUSCULOSKELETAL: Patient has bilaterally above knee amputations and she has and A line in the left forearm. POSTING CLERK: Patient is uremic and encephalopathic. Does not follow commands. She is restless and turning and tossing in the bed. SKIN: Erythematous tender rash on bilateral upper extremities are healing now. PSYCH: Patient is frankly uremic. LAB REVIEW: CBC showed a WBC of 34, hemoglobin 14.8, platelets of 131. ABG showed pH of 7.3, PCO2 of 22, PO2 129, bicarbonate is 12, 02 saturation is 98%. BMP this morning showed a sodium of 126, potassium 5, chloride is 93, bicarb 15, BUN is 78, creatinine is 4.2, calcium was 7.2, iron is 214, TIBC 208, transferrin saturation is 102, ferritin is 47,760. AST is 2842. ALT 1855. Alkaline phosphatase is 231. Ammonia is 149. Tylenol level is low. Hepatitis B and hepatitis C serology is negative so far. The rest of the serology is still pending. CURRENT INPATIENT MEDICATIONS: The patient's medications were all reviewed by me. She was started on vancomycin 750 mg IV with hemodialysis, I ordered a dose of Azactam 1 gram IV because of possible sepsis. She was briefly started on IV Levophed which was stopped this morning because blood pressure came up. There is no other change in the medications today except addition of lactulose, a rectal enema of hepatic encephalopathy. ASSESSMENT: 56-year-old female with a past medical history of chronic kidney disease stage IV, congestive heart failure, coronary artery disease, peripheral vascular disease, status post bilateral above knee amputations, diabetes, asthma, admitted this time because of centripetal rash. Nephrology service following the patient for acute oliguric renal failure. Patient's clinical status has worsened with permanent liver failure as well. PLAN: 1. Acute oliguric renal failure. Patient was dialyzed yesterday. She is oliguric and encephalopathic. Urgent hemodialysis was arranged and patient was started on hemodialysis second session today to help improve her uremia. 2. Fulminant liver failure. Patient has very high ferritin level although autoimmune serology and viral serology is still pending. She has been empirically started on antibiotics. Continue supportive care at this time. Continue the lactulose for hepatic encephalopathy and high ammonia level. Primary team is discussing the current prognosis with the family and possible transfer to liver center at [facility]. SOCIAL ISSUES: The patient has a very poor prognosis at this time. Family is discussing possible comfort measures at this time. If the patient's family makes her comfort measurements only, then hemodialysis will be stopped. The plan of care was discussed with the hospitalist, Dr. Radha Kline and with behavioral intervention specialist, Dr. Jluis Benitez. KELSEY
--- NOTE | 2016-11-29 05:46 | DSES ---
DATE OF ADMISSION: 11/19/2016 DATE OF DISCHARGE: 11/24/2016 DATE OF : 11/24/2016 at 7:36 p.m. PRIMARY CARE PROVIDER: Dr. Nasim Justin CONSULTANTS: Banana Grader, Dr. Velasco. Infectious disease specialist, Dr. Seth Valiente. Valve Repairer Reclamation, Dr. Jluis Benitez. DISCHARGE DIAGNOSES: 1. Acute fulminant liver failure with hepatic encephalopathy. 2. Desquamation of the bilateral upper extremities with a rash. 3. Acute on chronic renal failure. 4. Acute respiratory failure. 5. Hypotension. 6. Metabolic encephalopathy. 7. Coronary artery disease status post coronary artery bypass graft (CABG). 8. Diastolic congestive heart failure. 9. Severe peripheral arterial disease status post bilateral above-knee amputations. 10. History of mitral valve repair. 11. History of atrioventricular (AV) pacer. 12. Severe metabolic acidosis. 13. Heavy growth of staphylococcus coagulase negative and Enterococcus faecalis on wound cultures. HOSPITALIZATION COURSE: The patient is a 56-year-old female presented to [facility] on 11/19/2016 with rapid progression of skin rash with desquamations and macerations. Due to concern for a severe skin infection, patient was started on IV Teflaro. An infectious disease specialist consulted. Patient did not show any improvement from antibiotics, and a general surgeon was consulted for the punch biopsy of the left upper extremity. Pathology was sent for review within 24 hours, and empirical steroid was started. Patient started to show improvement of the skin rash with desquamations. However, patient started to show acute worsening of the renal function, and bellhop, Dr. Velasco, consulted. Patient's renal failure progressing fast to anuric end-stage renal failure, and multiple attempts were made to talk to the patient and patient's proxy, her , with regarding to a trial of dialysis initially. Later, we were able to obtain the consent and the patient was sent down to the procedure room for a temporary dialysis catheter insertion and triple-lumen insertion. Shortly after the procedure, patient became very hypotensive with respiratory failure. Valve Repairer Reclamation, Dr. Jluis Benitez, consulted on the case, and patient was started on pressor in the procedure room and patient was started on continuous positive airway pressure (CPAP) when she arrived in intensive care unit (ICU) room. The first run of hemodialysis was attempted while patient was being stabilized in the ICU. Patient's mentation continued to get worse. Shortly after, patient was found to be in the fulminant hepatic failure and patient's prognosis was explained to the patient's proxy. After multiple discussions, patient's proxy realized patient's condition is critical and patient had extremely poor prognosis; and later, the decision for comfort measures only (SALES EXECUTIVE) was reached. After the family visit, patient was off the CPAP and the pressor and the patient was transferred to the medical/surgical floor. Within several hours, patient around 7:36 p.m. Laboratory tests on the day of the showed WBC of 34.1, hemoglobin is 14.8, hematocrit is 46.6, platelet count is 131. Sodium is 126, potassium 5.1, chloride is 93, carbon dioxide 15, BUN 75, creatine 4.2, GFR is 11.6, fasting glucose 61, calcium is 7.2, magnesium 2.2, iron is 214, TIBC is 208, ferritin is 47,760, total bilirubin is 2, direct bilirubin 1.3, AST 2942, ALT is 1855, alkaline phosphatase 231, ammonia level is 149, C-reactive protein 9.47, total protein 5.7, albumin 3.2, ceruloplasmin is 30.1. PT is 52.8, INR is 5.44. Tylenol level is 8.1. Other diagnostic tests done during the hospitalization show rheumatoid factor negative, ADRIENNE screen negative, ANCA screen negative, anti-double strand negative , the antimitochondrial antibody level negative, antismooth muscle antibody negative, antiglomerular basement membrane antibody negative. Complement C4 and CH50 is normal, but patient had complement C3 of 57.3 that is mildly low. Hepatitis panel negative. CMV PCR pending. EBV DNA PCR pending. Microbiology: Blood culture from 11/19/2016 is negative after 5 days times two sets. Left upper extremity wound culture on 11/20/2016 showed heavy growth of staphylococcus coagulase-negative and Enterococcus faecalis. Respiratory panel is negative. 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 Skin biopsy pathology showed acantholytic lesion with superficial dermal telangiectasia without significant associated inflammation or vasculitis. IMAGING STUDY: Chest x-ray on 11/23/2016 showed cardiomegaly. Pulmonary venous hypertension. Small right effusion. CT of abdomen and pelvis without contrast on 11/23/2016 showed small hiatal hernia. Mild hepatomegaly. Small right pleural effusion. Mild abdominal and pelvic ascites. There was a small gallstone in the gallbladder. DISCHARGE TIME: Greater than 30 minutes. Pronounced 11/24/2016 at 7:36 p.m., and the body [place] [facility] [place] [facility]
== END 2016-11-24 19:36 | disposition expired | DRG 950 ==
LOC: M ED 17:54 → M ED INP 22:27 → OBSVTOIN 22:27 → M MSPAV 23:40 → M ICU 11-23 11:23 → M MSPAV 11-24 15:35
PROVIDERS: ADMIT Hospitalist; ATTEND Hospitalist
PROC: 02HV33Z Insertion of Infusion Device into Superior Vena Cava, Percutaneous Approach (ICD-10-PCS; 2016-11-20)
PROC: 02H633Z Insertion of Infusion Device into Right Atrium, Percutaneous Approach (ICD-10-PCS; 2016-11-20)
PROC: 0JBF0ZX Excision of Left Upper Arm Subcutaneous Tissue and Fascia, Open Approach, Diagnostic (ICD-10-PCS; principal; 2016-11-21)
PROC: 03HY32Z Insertion of Monitoring Device into Upper Artery, Percutaneous Approach (ICD-10-PCS; 2016-11-23)
PROC: 5A1D60Z (ICD-10-PCS; 2016-11-23)
DX: L01.00 Impetigo, unspecified (principal); J96.00 Acute respiratory failure, unspecified whether with hypoxia or hypercapnia; K72.00 Acute and subacute hepatic failure without coma; G93.40 Encephalopathy, unspecified; I13.0 Hypertensive heart and chronic kidney disease with heart failure and stage 1 through stage 4 chronic kidney disease, or unspecified chronic kidney disease; N17.9 Acute kidney failure, unspecified; E87.2 Acidosis; D69.0 Allergic purpura; I50.32 Chronic diastolic (congestive) heart failure; N18.4 Chronic kidney disease, stage 4 (severe); I95.9 Hypotension, unspecified; E11.51 Type 2 diabetes mellitus with diabetic peripheral angiopathy without gangrene; E11.649 Type 2 diabetes mellitus with hypoglycemia without coma; Z68.41 Body mass index [BMI] 40.0-44.9, adult; E66.2 Morbid (severe) obesity with alveolar hypoventilation; M10.30 Gout due to renal impairment, unspecified site; L03.116 Cellulitis of left lower limb; L03.115 Cellulitis of right lower limb; B02.9 Zoster without complications; L10.9 Pemphigus, unspecified; Z89.611 Acquired absence of right leg above knee; Z89.612 Acquired absence of left leg above knee; Z51.5 Encounter for palliative care; Z66 Do not resuscitate; J45.909 Unspecified asthma, uncomplicated; F32.9 Major depressive disorder, single episode, unspecified; I78.1 Nevus, non-neoplastic; L03.114 Cellulitis of left upper limb; T36.95XA Adverse effect of unspecified systemic antibiotic, initial encounter; L03.113 Cellulitis of right upper limb; L71.9 Rosacea, unspecified; B95.61 Methicillin susceptible Staphylococcus aureus infection as the cause of diseases classified elsewhere; B95.2 Enterococcus as the cause of diseases classified elsewhere; Z88.1 Allergy status to other antibiotic agents; Z79.82 Long term (current) use of aspirin; Z91.048 Other nonmedicinal substance allergy status; Z79.02 Long term (current) use of antithrombotics/antiplatelets; Z79.4 Long term (current) use of insulin; I25.10 Atherosclerotic heart disease of native coronary artery without angina pectoris; Z95.810 Presence of automatic (implantable) cardiac defibrillator; Z79.2 Long term (current) use of antibiotics; Z88.8 Allergy status to other drugs, medicaments and biological substances; Z88.0 Allergy status to penicillin; Z95.5 Presence of coronary angioplasty implant and graft; Z79.899 Other long term (current) drug therapy